=== PATIENT | female | born 1935 | race Caucasian/White ===

== ENCOUNTER 2017-05-17 17:49 | Inpatient (IN) | payer MEDICARE, MEDICAID ==
[~2017-05-17] VITALS: Ht 165.1 cm; Wt 67.1 kg
[2017-05-17 18:01] VITALS: BP 130/60
--- NOTE | 2017-05-17 18:40 | Emergency Room Report ---
History of Present Illness General Chief Complaint: Multiple Trauma/Fall Source: Patient, Medical Record, EMS Present Illness HPI 81-year-old female, [place] speaking, dementia, brought in by EMS for fall. Patient had an unwitnessed fall, nursing staff found her on the floor, unknown if patient hit her head. Unknown LOC. Patient currently awake and alert, confused however following all commands. Not complaining of any pain at this time Allergies: Coded Allergies: No Known Allergies (Unverified , 05/17/17) Patient History Past Medical History: see triage record Past Surgical History: none Pertinent Family History: none Reviewed Nursing Documentation: PMH: Agreed, PSxH: Agreed Nursing Documentation-PMH Hx Cardiac Problems: Yes - chf,a-fib Hx Hypertension: Yes Hx Diabetes: Yes History Of Psychiatric Problem: Yes - depression ,anxiety.bipolar Review of Systems All Other Systems: negative except mentioned in HPI Physical Exam Vital Signs Date Time Temp Pulse Resp B/P (MAP) Pulse Ox O2 Delivery O2 Flow Rate FiO2 05/17/17 17:51 98.0 82 16 130/60 94 Room Air 98.1 Sp02 EP Interpretation: reviewed, normal General Appearance: alert, other - ff commands, nad Head: normocephalic, atraumatic Eyes: bilateral eye normal inspection, bilateral eye PERRL, bilateral eye EOMI ENT: normal ENT inspection, normal pharynx, normal voice, moist mucus membranes Neck: normal inspection, full range of motion, supple Respiratory: normal inspection, lungs clear, normal breath sounds, no respiratory distress, no retraction, no wheezing, speaking full sentences, chest symmetrical Cardiovascular #1: normal inspection, regular rate, rhythm, no edema, normal capillary refill Cardiovascular #2: 2+ radial (R), 2+ radial (L) Gastrointestinal: normal inspection, non tender, soft, non-distended, no guarding Musculoskeletal: normal inspection, back normal, normal range of motion, non- tender Neurologic: alert, other - moving all ext spont Psychiatric: other - confused Skin: normal inspection, normal color, no rash, warm/dry, well hydrated, normal turgor Medical Decision Making Diagnostic Impression: Primary Impression: Fall Additional Impressions: UTI (urinary tract infection) Dementia ER Course 81-year-old female with fall DDX: Fall, unknown if mechanical or not, versus syncope, Vasovagal vs. orthostatic / hypovolemic/dehydration vs. cardiac arrhythmia (SVT, Afib) vs. cardiac (, ACS ) vs. PE vs. metabolic (hypoglycemia, hypoxia), vs neuro (seizure, CVA, intracranial bleed) Plan: bgm, cbc, bmp, ekg, cxr CT head ER course: Pt requiring sedation as patient very agitated, unable to perform blood work, fighting/screaming +UTI - ggiven ceftriaxone Disposition: Patient requires admission to telemetry. D/W hospitalist Dr Serrato Please note that this Emergency Department Report was dictated using netTALKtrack laying supervisor technology software, occasionally this can lead to erroneous entry secondary to interpretation by the dictation equipment EKG Diagnostic Results EP Interpretation: Yes Rate: normal Rhythm: NSR ST Segments:LBBB, TWI and st dep inferior leads ASA given to patient: No Rhythm Strip EP Interpretation: Yes Rate: Rhythm: NSR, no PVCs, no ectopy Chest X-ray CXR: Ordered: Yes 1 view Indication: Fall EP interpretation: Yes Interpretation: No consolidation, no effusion, no PTX, no acute cardiopulmonary disease Impression: No acute disease Electronically signed by Italo Gaitan MD Laboratory Tests Test 05/17/17 19:50 White Blood Count 5.8 K/UL (4.8-10.8) Red Blood Count 4.90 M/UL (4.20-5.40) Hemoglobin 14.3 G/DL (12.0-16.0) Hematocrit 44.1 % (37.0-47.0) Mean Corpuscular Volume 90 FL (80-99) Mean Corpuscular Hemoglobin 29.1 PG (27.0-31.0) Mean Corpuscular Hemoglobin Concent 32.3 G/DL (32.0-36.0) Red Cell Distribution Width 14.5 % (11.6-14.8) Platelet Count 159 K/UL (150-450) Mean Platelet Volume 10.5 FL (6.5-10.1) H Neutrophils (%) (Auto) 58.4 % (45.0-75.0) Lymphocytes (%) (Auto) 26.3 % (20.0-45.0) Monocytes (%) (Auto) 10.3 % (1.0-10.0) H Eosinophils (%) (Auto) 4.1 % (0.0-3.0) H Basophils (%) (Auto) 0.9 % (0.0-2.0) Urine Color Yellow Urine Appearance Slightly cloudy Urine pH 5 (4.5-8.0) Urine Specific [place] 1.020 (1.005-1.035) Urine Protein 2+ (NEGATIVE) H Urine Glucose (UA) Negative (NEGATIVE) Urine Ketones Negative (NEGATIVE) Urine Occult Blood 4+ (NEGATIVE) H Urine Nitrite Positive (NEGATIVE) H Urine Bilirubin Negative (NEGATIVE) Urine Urobilinogen Normal MG/DL (0.0-1.0) Urine Leukocyte Esterase 3+ (NEGATIVE) H Urine RBC Pending Urine WBC Pending Urine Squamous Epithelial Cells Pending Urine Bacteria Pending Sodium Level 143 MMOL/L (136-145) Potassium Level 3.7 MMOL/L (3.5-5.1) Chloride Level 104 MMOL/L (98-107) Carbon Dioxide Level 31 MMOL/L (21-32) Anion Gap 8 mmol/L (5-15) Blood Urea Nitrogen 10 mg/dL (7-18) Creatinine 0.7 MG/DL (0.55-1.30) Estimate Glomerular Filtration Rate mL/min (>60) Glucose Level 103 MG/DL (74-106) Calcium Level 9.6 MG/DL (8.5-10.1) Total Bilirubin 0.6 MG/DL (0.2-1.0) Aspartate Amino Transferase (AST) 34 U/L (15-37) Alanine Aminotransferase (ALT) 30 U/L (12-78) Alkaline Phosphatase 79 U/L (46-116) Troponin I 0.012 ng/mL (0.000-0.056) Pro-B-Type Natriuretic Peptide 590 pg/mL (0-125) H Total Protein 7.8 G/DL (6.4-8.2) Albumin 3.3 G/DL (3.4-5.0) L Globulin 4.5 g/dL Albumin/Globulin Ratio 0.7 (1.0-2.7) L CT/MRI/US Diagnostic Results CT/MRI/US Diagnostic Results : Imaging Test Ordered: CT Head Impression CT HEAD: Moderate age-related generalized brain volume loss and chronic small vessel ischemic changes. 1 cm layer of cystic hygroma over left cerebral. No definite acute subdural hematoma versus significant midline shift. Cavum septum vergae. Right maxillary sinus disease. STAT RAD READ Last Vital Signs Date Time Temp Pulse Resp B/P (MAP) Pulse Ox O2 Delivery O2 Flow Rate FiO2 05/17/17 17:51 98.0 82 16 130/60 94 Room Air 98.1 Disposition: ADMITTED INPATIENT Condition: Serious Referrals: Luiza Roberts MD (PCP) Italo Gaitan M.D. May 17, 2017 18:40
[2017-05-17] MEDS ORDERED: Midazolam 2mg/2ml Inj IM ONE (19:00)
[2017-05-17] MEDS ORDERED: LORazepam Inj 2mg/ml 1ml IV ONE ×2 (19:00→21:00)
[2017-05-17] MEDS ORDERED: DiphenhydrAMINE 50mg/ml Inj IVP ONE (19:00)
[2017-05-17] MEDS ORDERED: GLIMEPIRIDE4 MG ORAL (19:08)
[2017-05-17] MEDS ORDERED: TYLENOL EXTRA500 MG ORAL (19:08)
[2017-05-17] MEDS ORDERED: CARVEDILOL3.125 MG ORAL (19:08)
[2017-05-17] MEDS ORDERED: DIGOXIN125 MCG ORAL (19:08)
[2017-05-17] MEDS ORDERED: DULCOLAX10 MG RC (19:08)
[2017-05-17] MEDS ORDERED: TEMAZEPAM15 MG ORAL (19:08)
[2017-05-17] MEDS ORDERED: POTASSIUM CHLO10 ME2 PO (19:08)
[2017-05-17] MEDS ORDERED: NOVOLOG100 UNIT/3 SUBQ (19:08)
[2017-05-17] MEDS ORDERED: VITAMIN D-32000 UNI1 PO (19:08)
[2017-05-17] MEDS ORDERED: LIPITOR20 MG ORAL (19:08)
[2017-05-17] MEDS ORDERED: MILK OF MA400 MG/51 ORAL (19:08)
[2017-05-17] MEDS ORDERED: ACETAMINOPHEN325 M1 ORAL (19:08)
[2017-05-17] MEDS ORDERED: ABILIFY5 MG ORAL (19:08)
[2017-05-17] MEDS ORDERED: ATIVAN2 MG/1 ML IV (19:08)
[2017-05-17] MEDS ORDERED: FLEET ENEMA133 ML RECTAL (19:08)
[2017-05-17] MEDS ORDERED: DOCUSATE SODIU100 MG ORAL (19:08)
[2017-05-17] MEDS ORDERED: NOVOLOG100 UNITS1 (19:08)
[2017-05-17] MEDS ORDERED: Haloperidol 5mg/ml Inj ONE (19:11)
[2017-05-17] MEDS ORDERED: Haloperidol 5mg/ml Inj IM ONE (19:15)
[2017-05-17 20:12] LABS: APPEARANCE,URINE SLIGHTLY CLOUDY; BASOPHILS % (AUTO) 0.9 % (0.0-2.0); BILIRUBIN, URINE NEGATIVE (NEGATIVE); EOSINOPHILS % (AUTO) 4.1 % (0.0-3.0); GLUCOSE, URINE (UA) NEGATIVE (NEGATIVE); HEMATOCRIT 44.1 % (37.0-47.0); HEMOGLOBIN 14.3 G/DL (12.0-16.0); KETONES,URINE NEGATIVE (NEGATIVE); LEUKOCYTE ESTERASE ,URINE 3+ (NEGATIVE); LYMPHOCYTES % (AUTO) 26.3 % (20.0-45.0); MEAN CORPUSCULAR VOLUME 90 FL (80-99); MONOCYTES % (AUTO) 10.3 % (1.0-10.0); NEUTROPHILS % (AUTO) 58.4 % (45.0-75.0); NITRITE,URINE POSITIVE (NEGATIVE); PH,URINE 5 (4.5-8.0); PLATELET COUNT 159 K/UL (150-450); PROTEIN,URINE 2+ (NEGATIVE); RED CELL DISTRIBUTION WIDTH 14.5 % (11.6-14.8); UROBILINOGEN,URINE NORMAL MG/DL (0.0-1.0); WHITE BLOOD COUNT 5.8 K/UL (4.8-10.8)
[2017-05-17 20:14] LABS: COLOR,URINE YELLOW
[2017-05-17 20:15] LABS: ANION GAP 8 mmol/L (5-15); BLOOD UREA NITROGEN 10 mg/dL (7-18); CALCIUM 9.6 MG/DL (8.5-10.1); CARBON DIOXIDE 31 MMOL/L (21-32); CHLORIDE 104 MMOL/L (98-107); CREATININE 0.7 MG/DL (0.55-1.30); POTASSIUM 3.7 MMOL/L (3.5-5.1); SODIUM 143 MMOL/L (136-145)
[2017-05-17] MEDS ORDERED: cefTRIAXone 2 GM in NS 55 ML IVPB ONE (20:15)
[2017-05-17 20:26] LABS: ALANINE AMINOTRANSFERASE 30 U/L (12-78); ALBUMIN 3.3 G/DL (3.4-5.0); ALBUMIN/GLOBULIN RATIO 0.7 (1.0-2.7); ALKALINE PHOSPHATASE 79 U/L (46-116); ASPARTATE AMINO TRANSFERASE 34 U/L (15-37); BILIRUBIN,TOTAL 0.6 MG/DL (0.2-1.0)
[2017-05-17] MEDS ORDERED: Morphine Sulfate 2mg/ml Inj IVP PRN (21:30)
[2017-05-17] MEDS ORDERED: Miralax 17gm pkt ORAL PRN (21:30)
[2017-05-17] MEDS ORDERED: Albuterol/Ipratropium 3ml neb HHN PRN (21:30)
[2017-05-17 21:35] VITALS: BP 121/92
[2017-05-18] VITALS (7 sets, daily range): BP systolic 127–149; BP diastolic 57–92
[2017-05-18] MEDS ORDERED: VANCOMYCIN IVPB SCH (00:30)
[2017-05-18] MEDS ORDERED: D5W IVPB SCH (00:30)
--- NOTE | 2017-05-18 08:43 | Consultation ---
History of Present Illness General Date patient seen: May 18, 2017 Chief Complaint: Multiple Trauma/Fall Reason for Consultation: inpatient management Present Illness HPI 81-year-old female with hx of dementia, DM, Cardiac disease, arrhythmias brought in by EMS for an episode of fall. Patient had an unwitnessed fall, nursing staff found her on the floor, unknown if patient hit her head. Unknown LOC. Patient was awake in the ER but confused. She was diagnosed to have UTI as well and admitted to telemetry for further work up. Allergies: Coded Allergies: No Known Allergies (Unverified , 05/17/17) Medication History Scheduled Aripiprazole* (Abilify*), 5 MG ORAL BEDTIME, (Reported) Atorvastatin Calcium* (Lipitor*), 20 MG ORAL DAILY, (Reported) Carvedilol* (Carvedilol*), 3.125 MG ORAL EVERY 12 HOURS, (Reported) Cholecalciferol (Vitamin D3) (Vitamin D-3), 2,000 UNIT PO DAILY, (Reported) Digoxin* (Digoxin*), 125 MCG ORAL DAILY, (Reported) Docusate Sodium* (Docusate Sodium*), 100 MG ORAL DAILY, (Reported) Glimepiride* (Glimepiride*), 4 MG ORAL DAILY, (Reported) Potassium Chloride (Potassium Chloride), 10 MEQ PO DAILY, (Reported) Scheduled PRN Acetaminophen* (Acetaminophen 325MG Tablet*), 650 MG ORAL Q4H PRN for FEVER, ( Reported) Acetaminophen* (Acetaminophen 325MG Tablet*), 650 MG ORAL Q4H PRN for MILD PAIN, (Reported) Acetaminophen* (Tylenol Extra Strength*), 500 MG ORAL Q6H PRN for MODERATE PAIN, (Reported) Bisacodyl (Dulcolax), 10 MG RC DAILY PRN for IF MOM INEFFECTIVE, (Reported) Lorazepam* (Ativan*), 1 MG IV Q4H PRN for Agitation, (Reported) Magnesium Hydroxide* (Milk Of Magnesia*), 30 ML ORAL DAILY PRN for IF DOCUSATE INEFFECTIVE, (Reported) Na Phos,M-B/Na Phos,Di-Ba* (Fleet Enema*), 133 ML RECTAL DAILY PRN for IF DULCOLAX INEFFECTIVE, (Reported) Temazepam (Temazepam*), 15 MG ORAL BEDTIME PRN for Insomnia, (Reported) Miscellaneous Medications Insulin Aspart* (Novolog*), 0 SUBQ, (Reported) Patient History Healthcare decision maker Resuscitation status Full Code Advanced Directive on File No Past Medical/Surgical History Past Medical/Surgical History: (1) Diabetes mellitus (2) CAD (coronary artery disease) (3) Arrhythmia Review of Systems All Other Systems: negative except mentioned in HPI Physical Exam General Appearance: WD/WN Lines, tubes and drains: peripheral HEENT: normocephalic, atraumatic Neck: non-tender, normal alignment Respiratory/Chest: chest wall non-tender, lungs clear Breasts: no masses Cardiovascular/Chest: normal peripheral pulses, normal rate Abdomen: normal bowel sounds, non tender Genitourinary/Rectal: normal genital exam, heme negative stool Extremities: normal range of motion, non-tender Skin Exam: normal pigmentation Neurologic: packager hand II-XII grossly normal Last 24 Hour Vital Signs Date Time Temp Pulse Resp B/P (MAP) Pulse Ox O2 Delivery O2 Flow Rate FiO2 05/18/17 04:00 98.1 77 20 149/64 98 Room Air 21 98.1 05/18/17 04:00 72 05/18/17 00:48 98.1 82 16 143/57 98 Room Air 21 98.1 05/18/17 00:41 92 05/18/17 00:27 98.1 90 15 139/92 95 Room Air 98.1 05/18/17 00:03 98.1 90 15 139/92 95 Room Air 98.1 05/17/17 21:35 98.1 102 18 121/92 95 Room Air 98.1 05/17/17 18:01 98.1 84 16 130/60 94 Room Air 98.1 05/17/17 17:51 98.0 82 16 130/60 94 Room Air 98.1 Laboratory Tests Test 05/17/17 19:50 White Blood Count 5.8 K/UL (4.8-10.8) Red Blood Count 4.90 M/UL (4.20-5.40) Hemoglobin 14.3 G/DL (12.0-16.0) Hematocrit 44.1 % (37.0-47.0) Mean Corpuscular Volume 90 FL (80-99) Mean Corpuscular Hemoglobin 29.1 PG (27.0-31.0) Mean Corpuscular Hemoglobin Concent 32.3 G/DL (32.0-36.0) Red Cell Distribution Width 14.5 % (11.6-14.8) Platelet Count 159 K/UL (150-450) Mean Platelet Volume 10.5 FL (6.5-10.1) H Neutrophils (%) (Auto) 58.4 % (45.0-75.0) Lymphocytes (%) (Auto) 26.3 % (20.0-45.0) Monocytes (%) (Auto) 10.3 % (1.0-10.0) H Eosinophils (%) (Auto) 4.1 % (0.0-3.0) H Basophils (%) (Auto) 0.9 % (0.0-2.0) Urine Color Yellow Urine Appearance Slightly cloudy Urine pH 5 (4.5-8.0) Urine Specific [place] 1.020 (1.005-1.035) Urine Protein 2+ (NEGATIVE) H Urine Glucose (UA) Negative (NEGATIVE) Urine Ketones Negative (NEGATIVE) Urine Occult Blood 4+ (NEGATIVE) H Urine Nitrite Positive (NEGATIVE) H Urine Bilirubin Negative (NEGATIVE) Urine Urobilinogen Normal MG/DL (0.0-1.0) Urine Leukocyte Esterase 3+ (NEGATIVE) H Urine RBC 60-80 /HPF (0 - 2) H Urine WBC 15-20 /HPF (0 - 2) H Urine Squamous Epithelial Cells Few /LPF (NONE/OCC) Urine Amorphous Sediment Moderate /LPF (NONE) H Urine Bacteria Many /HPF (NONE) H Sodium Level 143 MMOL/L (136-145) Potassium Level 3.7 MMOL/L (3.5-5.1) Chloride Level 104 MMOL/L (98-107) Carbon Dioxide Level 31 MMOL/L (21-32) Anion Gap 8 mmol/L (5-15) Blood Urea Nitrogen 10 mg/dL (7-18) Creatinine 0.7 MG/DL (0.55-1.30) Estimat Glomerular Filtration Rate mL/min (>60) Glucose Level 103 MG/DL (74-106) Calcium Level 9.6 MG/DL (8.5-10.1) Total Bilirubin 0.6 MG/DL (0.2-1.0) Aspartate Amino Transf (AST/SGOT) 34 U/L (15-37) Alanine Aminotransferase (ALT/SGPT) 30 U/L (12-78) Alkaline Phosphatase 79 U/L (46-116) Troponin I 0.012 ng/mL (0.000-0.056) Pro-B-Type Natriuretic Peptide 590 pg/mL (0-125) H Total Protein 7.8 G/DL (6.4-8.2) Albumin 3.3 G/DL (3.4-5.0) L Globulin 4.5 g/dL Albumin/Globulin Ratio 0.7 (1.0-2.7) L Microbiology Date/Time Source Procedure Growth Status 05/17/17 19:50 Urine,Clean Catch Urine Culture - Preliminary Resulted Height (Feet): 5 Height (Inches): 5.00 Weight (Pounds): 153 Medications Current Medications Medications (Trade) Dose Ordered Sig/Esteban Route PRN Reason Start Time Stop Time Status Last Admin Dose Admin Acetaminophen (Tylenol) 650 mg Q4H PRN ORAL fever 05/17/17 21:30 06/16/17 21:29 Albuterol/ Ipratropium (Albuterol/ Ipratropium) 3 ml EVERY 4 HOURS PRN HHN Shortness of Breath 05/17/17 21:30 05/22/17 21:29 Aripiprazole (Abilify) 5 mg BEDTIME ORAL 05/18/17 21:00 06/17/17 20:59 Carvedilol (Coreg) 3.125 mg EVERY 12 HOURS ORAL 05/18/17 09:00 06/17/17 08:59 Cefepime HCl 2 gm/ Dextrose 110 ml @ 220 mls/hr EVERY 12 HOURS IV 05/18/17 09:00 05/25/17 08:59 Digoxin (Lanoxin) 0.125 mg DAILY ORAL 05/18/17 09:00 06/17/17 08:59 Heparin Sodium (Porcine) (Heparin 5000 units/ml) 5,000 units EVERY 12 HOURS SUBQ 05/18/17 09:00 06/17/17 08:59 Morphine Sulfate (Morphine Sulfate) 2 mg EVERY 4 HOURS PRN IVP Moderate Pain (Pain Scale 4-6) 05/17/17 21:30 05/24/17 21:29 Ondansetron HCl (Zofran) 4 mg Q6H PRN IVP Nausea & Vomiting 05/17/17 21:30 06/16/17 21:29 Phenazopyridine HCl (Pyridium) 100 mg DAILYPRN PRN ORAL dysuria 05/17/17 21:30 06/16/17 21:29 Polyethylene Glycol (Miralax) 17 gm DAILYPRN PRN ORAL Constipation 05/17/17 21:30 06/16/17 21:29 Temazepam (Restoril) 15 mg HSPRN PRN ORAL Insomnia 05/17/17 21:30 05/24/17 21:29 Vancomycin HCl (Vanco rx to dose) 1 ea DAILY PRN MISC . 05/18/17 07:45 06/17/17 07:44 Vancomycin HCl 1.5 gm/Dextrose 275 ml @ 183.3 mls/ hr Q24H IVPB 05/19/17 03:00 05/24/17 02:59 Assessment/Plan Problem List: (1) Fall ICD Codes: W19.XXXA - Unspecified fall, initial encounter SNOMED: 9229710, 543516324 (2) UTI (urinary tract infection) ICD Codes: N39.0 - Urinary tract infection, site not specified SNOMED: 04267399 (3) Diabetes mellitus ICD Codes: E11.9 - Type 2 diabetes mellitus without complications SNOMED: 84178136 (4) Arrhythmia ICD Codes: I49.9 - Cardiac arrhythmia, unspecified SNOMED: 459767754 (5) CAD (coronary artery disease) ICD Codes: I25.10 - Atherosclerotic heart disease of [place] coronary artery without angina pectoris SNOMED: 63736085 (6) Dementia ICD Codes: F03.90 - Unspecified dementia without behavioral disturbance SNOMED: 23450107 Assessment/Plan telemetry monitoring echo, cardiac and neuro evaluation check urine cultures iv abx check electrolytes symptomatic treatment MARTIN MAKI May 18, 2017 08:43
[2017-05-18] MEDS ORDERED: Cefepime HCl 2 GM in D5W 110 ML IV SCH (09:00)
--- NOTE | 2017-05-18 09:35 | Diagnostic Imaging Report ---
Indication: Altered mental status Technique: Contiguous 5 mm thick transaxial imaging of the head obtained in a Siemens Sensation [address] scanner. Soft tissue and bone windows generated. Automatic Exposure Control was utilized. Total Dose length Product (DLP): 1379.[address] Dose Index Volume (CTDIvol): 70.38,70.38 mGy Comparison: none Findings: There is a low density subdural collection over the left cerebral convexity measuring about 1 cm on transaxial images. This is not associated with mass effect or edema. This may represent an old subdural hematoma which is the most likely etiology. Moderate generalized atrophy of the brain demonstrated. Low attenuation of white matter tracts demonstrated. Cavus septum pellucidum is noted. Osseous structures are unremarkable. There is opacification of portions of the paranasal sinuses. An air-fluid level is noted in the right maxillary sinus. 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 No associated mass effect or edema. Generalized atrophy of the brain and evidence of chronic small vessel disease. Cavum septum pellucidum Sinusitis The CT scanner at [facility] is accredited by the [employer] and the scans are performed using dose optimization techniques as appropriate to a performed exam including Automatic Exposure control.
[2017-05-18] MEDS: Digoxin 0.125mg tab ORAL SCH (10:34)
[2017-05-18] MEDS: Heparin 5000 units/ml inj SUBQ SCH ×2 (10:35→21:33)
--- NOTE | 2017-05-18 10:39 | Diagnostic Imaging Report ---
Indication: Chest pain Comparison: None A single view chest radiograph was obtained. Findings: No definite infiltrate or pulmonary vascular congestion identified. The heart is enlarged. The aorta is mildly enlarged consistent with atherosclerotic vascular disease. The bones are osteopenic. Impression: No acute disease
[2017-05-18 11:16] LABS: BASOPHILS % (AUTO) 0.7 % (0.0-2.0); EOSINOPHILS % (AUTO) 5.1 % (0.0-3.0); HEMATOCRIT 39.2 % (37.0-47.0); HEMOGLOBIN 12.4 G/DL (12.0-16.0); LYMPHOCYTES % (AUTO) 23.2 % (20.0-45.0); MEAN CORPUSCULAR VOLUME 91 FL (80-99); MONOCYTES % (AUTO) 11.4 % (1.0-10.0); NEUTROPHILS % (AUTO) 59.7 % (45.0-75.0); PLATELET COUNT 127 K/UL (150-450); RED BLOOD COUNT 4.31 M/UL (4.20-5.40); RED CELL DISTRIBUTION WIDTH 14.5 % (11.6-14.8); WHITE BLOOD COUNT 4.8 K/UL (4.8-10.8)
[2017-05-18 11:39] LABS: ALANINE AMINOTRANSFERASE 23 U/L (12-78); ALBUMIN 2.5 G/DL (3.4-5.0); ALBUMIN/GLOBULIN RATIO 0.7 (1.0-2.7); ALKALINE PHOSPHATASE 60 U/L (46-116); ANION GAP 8 mmol/L (5-15); ASPARTATE AMINO TRANSFERASE 30 U/L (15-37); BILIRUBIN,TOTAL 0.6 MG/DL (0.2-1.0); BLOOD UREA NITROGEN 7 mg/dL (7-18); CALCIUM 8.9 MG/DL (8.5-10.1); CARBON DIOXIDE 27 MMOL/L (21-32); CHLORIDE 107 MMOL/L (98-107); CREATININE 0.6 MG/DL (0.55-1.30); POTASSIUM 3.5 MMOL/L (3.5-5.1); SODIUM 142 MMOL/L (136-145)
--- NOTE | 2017-05-18 16:26 | Cardiology Report ---
APPROVED REPORT EKG Measurement Heart [id number] Normal sinus rhythm Left bundle branch block Abnormal ECG
[2017-05-18] MEDS ORDERED: Haloperidol Decanoate 50mg Inj IM PRN (17:30)
--- NOTE | 2017-05-18 18:30 | Consultation ---
DATE OF CONSULTATION: 05/18/2017 INFECTIOUS DISEASES CONSULTATION CONSULTING PHYSICIAN: Fredi Betts M.D. PRIMARY ATTENDING PHYSICIAN: Luiza Roberts M.D. REASON FOR CONSULTATION: Pyuria and urinary tract infection. HISTORY OF PRESENT ILLNESS: This is an 81-year-old female admitted last night from nursing facility after she was found in the floor, likely had a unwitnessed fall. She is confused and not a source of history. PAST MEDICAL HISTORY: Significant for dementia, depression, diabetes, hypertension. ALLERGIES: No known drug allergy. MEDICATIONS: Cefepime, vancomycin, Abilify, Coreg, digoxin, albuterol ipratropium inhaler, Tylenol, morphine, MiraLAX, Zofran, temazepam, SOCIAL HISTORY: residential resident. . No other history obtainable by the patient. She is confused and tries to get out of the bed. PHYSICAL EXAMINATION: VITAL SIGNS: Temperature 98.1, pulse 81, blood pressure 127/52. GENERAL APPEARANCE: No acute distress. Seems to have normal weight. HEENT: Head and neck pink conjunctiva. HEART: Regular. LUNGS: Clear. ABDOMEN: soft and nontender. EXTREMITIES: No edema. NEUROLOGIC: Awake, alert, confused. LABORATORY AND DIAGNOSTIC DATA: Sodium 143, potassium 3.7, chloride 104, bicarb 31, BUN 10, creatinine 0.7. WBC 4.8, hemoglobin 12.4, hematocrit 39.2, platelets 127. Urine culture is pending. Chest x-ray was negative. CT scan of the head showed right maxillary sinusitis with air fluid level, subdural hematoma versus hygroma in the left side . UA showed RBCs of 60 to 80, WBCs 15 to 20, bacteria many, protein 2+. IMPRESSION: 1. Pyuria may have urinary tract infection. 2. Sinusitis in right maxillary sinus, it is not clear if it is acute or chronic. 3. Status post fall. 4. Diabetes mellitus. 5. Hypertension. 6. Dementia. RECOMMENDATION: 1. Continue with cefepime. 2. We will discontinue IV vancomycin. 3. We will follow up the cultures. At the end of my exam, I thank Dr. Roberts, for involving me in the care of this patient. Fredi Betts M.D. DR: Jacqueline JOB#: [id number] CC: ERICKSON
[2017-05-18] MEDS: Haloperidol 5mg/ml Inj IM PRN (18:35)
--- NOTE | 2017-05-18 20:23 | Cardiology Progress Note ---
Assessment/Plan Assessment/Plan The patient is seen and examined, full consult note will be dictated shortly. Objective Last 24 Hour Vital Signs Date Time Temp Pulse Resp B/P (MAP) Pulse Ox O2 Delivery O2 Flow Rate FiO2 05/18/17 16:00 96 05/18/17 16:00 97.9 91 20 138/75 98 Room Air 21 97.9 05/18/17 12:00 84 05/18/17 12:00 97.6 76 20 136/76 98 Room Air 21 97.6 81 05/18/17 10:34 81 05/18/17 10:33 81 127/52 05/18/17 08:00 97.3 81 20 127/57 98 Room Air 21 97.3 81 05/18/17 08:00 74 05/18/17 04:00 98.1 77 20 149/64 98 Room Air 21 98.1 05/18/17 04:00 72 05/18/17 00:48 98.1 82 16 143/57 98 Room Air 21 98.1 05/18/17 00:41 92 05/18/17 00:27 98.1 90 15 139/92 95 Room Air 98.1 05/18/17 00:03 98.1 90 15 139/92 95 Room Air 98.1 05/17/17 21:35 98.1 102 18 121/92 95 Room Air 98.1 Intake and Output 05/17/17 05/18/17 19:00 07:00 # Voids 5 # Bowel Movements 1 Laboratory Tests Test 05/18/17 11:00 White Blood Count 4.8 K/UL (4.8-10.8) Red Blood Count 4.31 M/UL (4.20-5.40) Hemoglobin 12.4 G/DL (12.0-16.0) Hematocrit 39.2 % (37.0-47.0) Mean Corpuscular Volume 91 FL (80-99) Mean Corpuscular Hemoglobin 28.8 PG (27.0-31.0) Mean Corpuscular Hemoglobin Concent 31.7 G/DL (32.0-36.0) L Red Cell Distribution Width 14.5 % (11.6-14.8) Platelet Count 127 K/UL (150-450) L Mean Platelet Volume 10.9 FL (6.5-10.1) H Neutrophils (%) (Auto) 59.7 % (45.0-75.0) Lymphocytes (%) (Auto) 23.2 % (20.0-45.0) Monocytes (%) (Auto) 11.4 % (1.0-10.0) H Eosinophils (%) (Auto) 5.1 % (0.0-3.0) H Basophils (%) (Auto) 0.7 % (0.0-2.0) Sodium Level 142 MMOL/L (136-145) Potassium Level 3.5 MMOL/L (3.5-5.1) Chloride Level 107 MMOL/L (98-107) Carbon Dioxide Level 27 MMOL/L (21-32) Anion Gap 8 mmol/L (5-15) Blood Urea Nitrogen 7 mg/dL (7-18) Creatinine 0.6 MG/DL (0.55-1.30) Estimat Glomerular Filtration Rate mL/min (>60) Glucose Level 129 MG/DL (74-106) H Calcium Level 8.9 MG/DL (8.5-10.1) Total Bilirubin 0.6 MG/DL (0.2-1.0) Aspartate Amino Transf (AST/SGOT) 30 U/L (15-37) Alanine Aminotransferase (ALT/SGPT) 23 U/L (12-78) Alkaline Phosphatase 60 U/L (46-116) Total Protein 6.3 G/DL (6.4-8.2) L Albumin 2.5 G/DL (3.4-5.0) L Globulin 3.8 g/dL Albumin/Globulin Ratio 0.7 (1.0-2.7) L Microbiology Date/Time Source Procedure Growth Status 05/17/17 19:50 Urine,Clean Catch Urine Culture - Preliminary Resulted JH FONSECA May 18, 2017 20:23
--- NOTE | 2017-05-18 20:31 | History & Physical ---
History and Physical History & Physicial JOb ID [id number] Cesar Salvador May 18, 2017 20:31
[2017-05-18] MEDS: Carvedilol 6.25mg Tab ORAL SCH (21:32)
--- NOTE | 2017-05-18 22:15 | History and Physical Report ---
DATE OF ADMISSION: 05/17/2017 HISTORY OF PRESENT ILLNESS: The patient comes in with status post fall at the facility. The patient is a poor historian, cannot get any reliable history from the patient. The patient also admitted for possible urinary tract infection. Again, cannot get any history whatsoever, is a very poor historian at this point. PAST MEDICAL HISTORY: Significant for dementia, psychosis, hypertension, arrhythmia, NIDDM, anxiety, and insomnia. The patient does have mid abdominal surgical scar, but cannot tell me what the surgery was for. The patient is a very poor historian. ALLERGIES: No known allergies. MEDICATIONS: Abilify, Tylenol, Lipitor, Dulcolax, Coreg, digoxin, Colace, NovoLog, Ativan, and temazepam. FAMILY HISTORY: Unable to obtain. SOCIAL HISTORY: Unable to obtain. REVIEW OF SYSTEMS: Unable to obtain. PHYSICAL EXAMINATION: VITAL SIGNS: Temperature is 98.1 degrees, pulse is 90, and blood pressure is 139/92. HEENT: PERRLA. CHEST: Clear to auscultation. CARDIOVASCULAR: Regular rate and rhythm. ABDOMEN: Soft. Positive bowel sounds. Mid abdominal scar. EXTREMITIES: No edema. Does have contractures. NEUROLOGIC: Oriented x1 to name only. Does not follow neurological exam. LABORATORY AND DIAGNOSTIC DATA: WBC of 5.8, hemoglobin of 14.3, and platelets of 159. Urine showed signs of UTI. Sodium 142, potassium 3.7, BUN of 10, creatinine 0.7, and glucose of 103. ASSESSMENT AND PLAN: Altered mental status, status post fall. No apparent injury at this point, poor historian. I have asked Dr. Jo, Dr. John Mascorro, and Dr. Thompson to see the patient for possible syncope and for the diagnosis on admission and treatment of the above-mentioned diagnoses and treatment. Luiza Roberts M.D. DR: LUCIUS JOB#: [id number] CC:
--- NOTE | 2017-05-18 23:00 | Consultation ---
History of Present Illness General Date patient seen: May 18, 2017 Chief Complaint: Multiple Trauma/Fall Reason for Consultation: inpatient management Present Illness HPI 81-year-old female admitted last night from nursing facility after she was found in the floor, the pt has hx of dementia and depression the pt was confused and pulled her iv out due to agitation. the pt was unable to participate in eval Allergies: Coded Allergies: No Known Allergies (Unverified , 05/17/17) Medication History Scheduled Aripiprazole* (Abilify*), 5 MG ORAL BEDTIME, (Reported) Atorvastatin Calcium* (Lipitor*), 20 MG ORAL DAILY, (Reported) Carvedilol* (Carvedilol*), 3.125 MG ORAL EVERY 12 HOURS, (Reported) Cholecalciferol (Vitamin D3) (Vitamin D-3), 2,000 UNIT PO DAILY, (Reported) Digoxin* (Digoxin*), 125 MCG ORAL DAILY, (Reported) Docusate Sodium* (Docusate Sodium*), 100 MG ORAL DAILY, (Reported) Glimepiride* (Glimepiride*), 4 MG ORAL DAILY, (Reported) Potassium Chloride (Potassium Chloride), 10 MEQ PO DAILY, (Reported) Scheduled PRN Acetaminophen* (Acetaminophen 325MG Tablet*), 650 MG ORAL Q4H PRN for FEVER, ( Reported) Acetaminophen* (Acetaminophen 325MG Tablet*), 650 MG ORAL Q4H PRN for MILD PAIN, (Reported) Acetaminophen* (Tylenol Extra Strength*), 500 MG ORAL Q6H PRN for MODERATE PAIN, (Reported) Bisacodyl (Dulcolax), 10 MG RC DAILY PRN for IF MOM INEFFECTIVE, (Reported) Lorazepam* (Ativan*), 1 MG IV Q4H PRN for Agitation, (Reported) Magnesium Hydroxide* (Milk Of Magnesia*), 30 ML ORAL DAILY PRN for IF DOCUSATE INEFFECTIVE, (Reported) Na Phos,M-B/Na Phos,Di-Ba* (Fleet Enema*), 133 ML RECTAL DAILY PRN for IF DULCOLAX INEFFECTIVE, (Reported) Temazepam (Temazepam*), 15 MG ORAL BEDTIME PRN for Insomnia, (Reported) Miscellaneous Medications Insulin Aspart* (Novolog*), 0 SUBQ, (Reported) Patient History Limited by: medical condition History Provided By: Patient, Medical Record, PMD Healthcare decision maker Resuscitation status Full Code Advanced Directive on File No Past Medical/Surgical History Past Medical/Surgical History: (1) Diabetes mellitus (2) Arrhythmia (3) CAD (coronary artery disease) (4) Dementia (5) UTI (urinary tract infection) (6) Fall Review of Systems Psychiatric: Reports: anxiety, depressed feelings, emotional problems Physical Exam General Appearance: no apparent distress, alert, confused, agitated Last 24 Hour Vital Signs Date Time Temp Pulse Resp B/P (MAP) Pulse Ox O2 Delivery O2 Flow Rate FiO2 05/18/17 21:32 95 134/59 05/18/17 16:00 96 05/18/17 16:00 97.9 91 20 138/75 98 Room Air 21 97.9 05/18/17 12:00 84 05/18/17 12:00 97.6 76 20 136/76 98 Room Air 21 97.6 81 05/18/17 10:34 81 05/18/17 10:33 81 127/52 05/18/17 08:00 97.3 81 20 127/57 98 Room Air 21 97.3 81 05/18/17 08:00 74 05/18/17 04:00 98.1 77 20 149/64 98 Room Air 21 98.1 05/18/17 04:00 72 05/18/17 00:48 98.1 82 16 143/57 98 Room Air 21 98.1 05/18/17 00:41 92 05/18/17 00:27 98.1 90 15 139/92 95 Room Air 98.1 05/18/17 00:03 98.1 90 15 139/92 95 Room Air 98.1 Intake and Output 05/17/17 05/18/17 19:00 07:00 # Voids 5 # Bowel Movements 1 Laboratory Tests Test 05/18/17 11:00 White Blood Count 4.8 K/UL (4.8-10.8) Red Blood Count 4.31 M/UL (4.20-5.40) Hemoglobin 12.4 G/DL (12.0-16.0) Hematocrit 39.2 % (37.0-47.0) Mean Corpuscular Volume 91 FL (80-99) Mean Corpuscular Hemoglobin 28.8 PG (27.0-31.0) Mean Corpuscular Hemoglobin Concent 31.7 G/DL (32.0-36.0) L Red Cell Distribution Width 14.5 % (11.6-14.8) Platelet Count 127 K/UL (150-450) L Mean Platelet Volume 10.9 FL (6.5-10.1) H Neutrophils (%) (Auto) 59.7 % (45.0-75.0) Lymphocytes (%) (Auto) 23.2 % (20.0-45.0) Monocytes (%) (Auto) 11.4 % (1.0-10.0) H Eosinophils (%) (Auto) 5.1 % (0.0-3.0) H Basophils (%) (Auto) 0.7 % (0.0-2.0) Sodium Level 142 MMOL/L (136-145) Potassium Level 3.5 MMOL/L (3.5-5.1) Chloride Level 107 MMOL/L (98-107) Carbon Dioxide Level 27 MMOL/L (21-32) Anion Gap 8 mmol/L (5-15) Blood Urea Nitrogen 7 mg/dL (7-18) Creatinine 0.6 MG/DL (0.55-1.30) Estimat Glomerular Filtration Rate mL/min (>60) Glucose Level 129 MG/DL (74-106) H Calcium Level 8.9 MG/DL (8.5-10.1) Total Bilirubin 0.6 MG/DL (0.2-1.0) Aspartate Amino Transf (AST/SGOT) 30 U/L (15-37) Alanine Aminotransferase (ALT/SGPT) 23 U/L (12-78) Alkaline Phosphatase 60 U/L (46-116) Total Protein 6.3 G/DL (6.4-8.2) L Albumin 2.5 G/DL (3.4-5.0) L Globulin 3.8 g/dL Albumin/Globulin Ratio 0.7 (1.0-2.7) L Height (Feet): 5 Height (Inches): 5.00 Weight (Pounds): 150 Medications Current Medications Medications (Trade) Dose Ordered Sig/Esteban Route PRN Reason Start Time Stop Time Status Last Admin Dose Admin Acetaminophen (Tylenol) 650 mg Q4H PRN ORAL fever 05/17/17 21:30 06/16/17 21:29 Albuterol/ Ipratropium (Albuterol/ Ipratropium) 3 ml EVERY 4 HOURS PRN HHN Shortness of Breath 05/17/17 21:30 05/22/17 21:29 Aripiprazole (Abilify) 5 mg BEDTIME ORAL 05/18/17 21:00 06/17/17 20:59 05/18/17 21:32 Carvedilol (Coreg) 6.25 mg EVERY 12 HOURS ORAL 05/18/17 21:00 06/17/17 20:59 05/18/17 21:32 Cefepime HCl 1 gm/ Sodium Chloride 55 ml @ 110 mls/hr Q24H IVPB 05/19/17 09:00 05/26/17 08:59 Digoxin (Lanoxin) 0.125 mg DAILY ORAL 05/18/17 09:00 06/17/17 08:59 05/18/17 10:34 Haloperidol Lactate (Haldol) 5 mg Q6H PRN IM Agitation 05/18/17 17:45 06/17/17 17:44 05/18/17 18:35 Heparin Sodium (Porcine) (Heparin 5000 units/ml) 5,000 units EVERY 12 HOURS SUBQ 05/18/17 09:00 06/17/17 08:59 05/18/17 21:33 Morphine Sulfate (Morphine Sulfate) 2 mg EVERY 4 HOURS PRN IVP Moderate Pain (Pain Scale 4-6) 05/17/17 21:30 05/24/17 21:29 Ondansetron HCl (Zofran) 4 mg Q6H PRN IVP Nausea & Vomiting 05/17/17 21:30 06/16/17 21:29 Phenazopyridine HCl (Pyridium) 100 mg DAILYPRN PRN ORAL dysuria 05/17/17 21:30 06/16/17 21:29 Polyethylene Glycol (Miralax) 17 gm DAILYPRN PRN ORAL Constipation 05/17/17 21:30 06/16/17 21:29 Risperidone (RisperDAL) 1 mg BEDTIME ORAL 05/18/17 21:00 06/17/17 20:59 05/18/17 21:31 Temazepam (Restoril) 15 mg HSPRN PRN ORAL Insomnia 05/17/17 21:30 05/24/17 21:29 05/18/17 21:33 Assessment/Plan Status: stable Assessment/Plan encephalopathy dementia with behavioral dist riperdal 1mg qhs risperdal .5 Shana Shrestha M.D. May 18, 2017 23:00
--- NOTE | 2017-05-18 23:00 | Consultation ---
DATE OF CONSULTATION: 05/18/2017 PHYSICAL MEDICINE AND REHABILITATION CONSULTATION CONSULTING PHYSICIAN: John Mascorro M.D. REQUESTING PHYSICIAN: Luiza Roberts M.D. GROUND INTELLIGENCE OFFICER: Isaura Tena M.D. SHELLS INSPECTOR: Tavo Thompson M.D. CHIEF COMPLAINT: Difficulty with functionality and communication status post fall. HISTORY OF PRESENT ILLNESS: The patient is an 81-year-old Welsh female who apparently is a resident of nursing home facility with history of psychiatric disorder and dementia, had an unwitnessed fall with unknown loss of consciousness was brought to the emergency room at [facility]. The patient was admitted to the hospital. CT scan of the head revealed chronic small left cerebral subdural hematoma versus CSF hygroma with no associated mass effect or edema, also generalized atrophy reported. Her chest x-ray reported with no acute disease. The patient had elevated proBNP level and also urine was positive for nitrites and bacteruria, RBCs 60 to 80 and white count of 15 to 20. Urine culture so far so result. The patient was admitted to telemetry, was seen by platen press operator and waiting for Cardiology evaluation. I was asked today to evaluate the patient for rehabilitation. The patient is at bed, confused, disoriented, and apparently Welsh speaker, unable to give any information and all the information was taken from reviewing of the chart or discussed with staff. The patient's prior level of function is not clear but apparently has been a resident of nursing home facility. PAST MEDICAL AND SURGICAL HISTORY: 1. History of diabetes mellitus. 2. Hypertension. 3. Hyperlipidemia. 4. Atrial fibrillation. 5. Congestive heart failure. 6. Dementia. 7. Anxiety. 8. Depression. 9. Bipolar disorder. ALLERGIES: Not known drug allergy. MEDICATIONS: Cefepime IV everyday, Abilify 5 mg at bedtime, Coreg 3.125 mg every 12 hours, digoxin 0.125 mg daily, heparin subcutaneous 5000 units b.i.d., albuterol inhaler every four hours p.r.n., Tylenol p.r.n., morphine p.r.n., MiraLAX, Zofran, Restoril, . FAMILY AND SOCIAL HISTORY: Minimal information is available. The patient is apparently resident of nursing home facility with history of multiple psychiatric disorders with depression, bipolar, anxiety disorder. Prior level of function is not clear, currently requires maximum entry level administrative assistant for bed mobility. History of tobacco and alcohol is not clear. Family history is not available. REVIEW OF SYSTEMS: Not obtainable. PHYSICAL EXAMINATION: VITAL SIGNS: Blood pressure 120/52, respiratory rate 20 per minute, heart rate 80 per minute, temperature 97.3 degrees Fahrenheit, and O2 saturation 98%. Height is 165 cm, weight 69 kg, and body mass index 25.5. GENERAL: The patient is at bed, does not look like being in any acute distress, confused. HEENT: No facial droop noted. Unable to evaluate visual field or extraocular movements. NECK: Supple with no lymphadenopathy. HEART: Regular rhythm and rate. LUNGS: Clear to auscultation bilaterally. ABDOMEN: Soft, nontender, and nondistended. Normal bowel sounds. EXTREMITIES: No pretibial edema. No calf tenderness. No clubbing or cyanosis. NEUROLOGIC: The patient is awake. Only follows minimal commands occasionally. Minimally moves bilateral upper and lower limbs occasionally. Unable to follow commands to check manual muscle strength. Sensation is not assessable. LABORATORY DATA: WBC is 4.8, hemoglobin 12.4, platelets 127. Sodium 142, potassium 3.5, BUN 7, creatinine 0.6, glucose 129. AST and ALT 30 and 23. Albumin 2.5. ASSESSMENT: The patient is an 81-year-old female with: 1. Multifactorial encephalopathy. 2. 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 3. Dementia. 4. Aphasia. 5. Possible dysphagia. 6. Debility and functional decline. 7. Gait abnormality. 8. Bipolar disorder and anxiety disorder. 9. Depression. 10. Paroxysmal atrial fibrillation. 11. Hyperlipidemia. 12. Hypertension. 13. Diabetes mellitus. 14. Elevated proBNP level. 15. Possible urinary tract infection.. 16. Status post unwitnessed fall at nursing home facility. RECOMMENDATIONS: This patient will benefit from evaluation and training by physical therapy, occupational therapy, speech therapy, and being provided with 24-hours nursing care. Physical therapy for range of motion, transfer training, endurance, balance, and ambulation training with appropriate assistive device. Occupational therapy for activities of daily living, equipment, function and transfer evaluation and training, upper extremity range of motion and strengthening exercise. Speech therapy for evaluation of retraining on status of her cognition, memory, speech, language, and swallow evaluation and retraining and aspiration precaution. Nursing for evaluation of her bowel and bladder, medication regimen, skin care prevention of pressure ulcer, patient and polysomnography tech education. Neurology and Cardiology consultation and management and being evaluated by neurosurgeon is recommended. I defer this to primary care physician to arrange that. Strict fall precaution, pressure ulcer precaution, aspiration precaution, and cardiac precaution. Continue medical management per medicine. Thank you for your consultation. John Mascorro M.D. DR: Ronn JOB#: [id number] CC:
[2017-05-19] VITALS: BP 169/70
--- NOTE | 2017-05-19 02:15 | Consultation ---
DATE OF CONSULTATION: 05/18/2017 CARDIOLOGY CONSULTATION CONSULTING PHYSICIAN: Tavo Thompson M.D. REFERRING PHYSICIAN: Luiza Roberts M.D. REASON FOR CONSULTATION: Management of syncope. HISTORY OF PRESENT ILLNESS: The patient is a very unfortunate 81-year-old [place] female with underlying history of dementia, who was brought in by EMS after an episode of an unwitnessed fall and possible associated syncopal event. According to the nursing staff, the patient was found on the floor. It is not clear how long she has been on the floor or if the patient had any associated trauma. It is not also clear whether the patient had loss of consciousness prior to that event. At the time of arrival to the emergency department, blood pressure was 130/60 mmHg and heart rate of 82. A 12-lead electrocardiogram was significant for sinus rhythm, heart rate of [address]-segment in II, III, and aVF suggestive of ischemia in the inferior wall as well as the presence of nonspecific intraventricular conduction delay. The patient was admitted to telemetry for further evaluation and management. Review of the record shows prior history of hypertension, diabetes mellitus, and paroxysmal atrial fibrillation as well as congestive heart failure. PAST MEDICAL HISTORY: As mentioned above including hypertension, diabetes mellitus, depression, anxiety, bipolar disorder, dementia, paroxysmal atrial fibrillation, and history of congestive heart failure. PAST SURGICAL HISTORY: None. MEDICATIONS: List of medications including acetaminophen 650 mg q.4 h. p.r.n. pain and fever, Abilify 5 mg p.o. nightly, Lipitor 20 mg p.o. daily, Dulcolax 10 mg rectal daily p.r.n. constipation, carvedilol 3.125 mg q.12 h., vitamin D3 2000 units p.o. daily, digoxin 125 mcg p.o. daily, Colace 100 mg p.o. daily, glimepiride 4 mg p.o. daily, insulin aspart, lorazepam 1 mg IV q.4 h. p.r.n. agitation, magnesium hydroxide 30 mL p.o. p.r.n. constipation, Fleet Enema 133 mL rectal daily p.r.n. constipation, potassium chloride 10 mEq p.o. daily as well as temazepam 15 mg p.o. nightly. ALLERGIES: No known drug allergies. FAMILY HISTORY: No premature coronary artery disease in first-degree relatives. REVIEW OF SYSTEMS: A 12-system review could not be done as the patient is demented. PHYSICAL EXAMINATION: GENERAL: The patient is a very unfortunate 81-year-old female, awake and speaking her own Luxembourgish language, not communicating or verbalizing Maltese language. She does not appear to be in respiratory distress. VITAL SIGNS: Blood pressure was 130/60, pulse of 82, respirations 16, temperature 98.0 degrees Fahrenheit, O2 saturation 94% on room air. HEENT: Atraumatic and normocephalic. Anicteric. Pupils are equal, round, and reactive to light and accommodation. Extraocular muscles intact. NECK: JVP less than 5 cm. No carotid bruit. Carotid upstrokes 2+ bilaterally. CARDIOVASCULAR: Normal S1 and S2. There is 2/6 grade midsystolic murmur at the left sternal border. PMI is at fourth intercostal space at the midclavicular line. LUNGS: Clear to auscultation bilaterally. ABDOMEN: Soft, nontender, and nondistended. No hepatosplenomegaly. Positive bowel sounds. EXTREMITIES: No evidence of edema, clubbing, or cyanosis. LABORATORY AND DIAGNOSTIC DATA: WBC 5.8, hemoglobin 14.3, hematocrit 44.1, and platelet count 159,000. Sodium 142, potassium 3.7, chloride 104, bicarbonate 31, BUN of 10, creatinine 0.7, glucose 103, calcium 9.6. Troponin I is 0.012. ProBNP was 590. A 12-lead electrocardiogram shows sinus rhythm, rate of [address]-segment depression in II, III, and aVF suggestive of inferior wall ischemia as well as nonspecific ST-segment changes in the lateral leads, intraventricular conduction delay, nonspecific. Chest x-ray showed no acute cardiopulmonary disease. ASSESSMENT AND PLAN: The patient is a very unfortunate 81-year-old female, seen in Cardiology consultation for management of syncope. 1. Possible syncopal event leading to unwitnessed fall. We would like to obtain orthostatics to assess hemodynamics and fluid status, carotid artery duplex study, 2D echocardiography for assessment of LV systolic function. Her cardiac rhythm will be monitored throughout her stay. 2. Diabetes mellitus. The patient will benefit from combination of aspirin and statins. 3. History of hypertension. I would prefer beta-polo for control of hypertension in this patient. I agree with carvedilol. We will adjust the dose for target of blood pressure 130/80 and below. 4. History of congestive heart failure. Currently, the patient does not appear to be in heart failure clinically. We however would like to obtain 2D echocardiography to delineate this entity. I would like to thank, Dr. Roberts, for the courtesy of this consultation. Tavo Thompson M.D. DR: JANETT JOB#: [id number] CC:
[2017-05-19] MEDS ORDERED: Vancomycin 1.5 GM in D5W 275 ML IVPB SCH (03:00)
[2017-05-19 04:00] VITALS: BP 136/82
--- NOTE | 2017-05-19 05:30 | History and Physical Report ---
DATE OF ADMISSION: 05/17/2017 HISTORY OF PRESENT ILLNESS: The patient is a pleasant 81-year-old female with past medical history significant for dementia, diabetes mellitus, cardiac disease, arrhythmia, at this time presents with fall, brought to EMS, unwitnessed fall in the long term the patient hit her head, had no loss of consciousness. She has been seen by including line infection, has been started on antibiotics. Hematology Service has been consulted in addition. This is a History and Physical for this patient. PAST MEDICAL HISTORY: As noted above, diabetes mellitus, cardiac disease, and arrhythmia. MEDICATIONS: Omeprazole, Lipitor, Coreg, , digoxin, glimepiride, and potassium chloride. PAST SURGICAL HISTORY: None known. ALLERGIES: No known drug allergies. FAMILY HISTORY: Noncontributory. REVIEW OF SYSTEMS: CONSTITUTIONAL: No fevers, chills, or night sweats. SKIN: No rashes, bumps, or itching. HEENT: No headache, hearing or vision changes. BREASTS: No lumps, pain, or discharge. PULMONARY: No cough, sputum, or shortness of breath. GASTROINTESTINAL: No nausea, vomiting, or diarrhea. GENITOURINARY: No dysuria, frequency, or urgency. MUSCULOSKELETAL: No joint swelling, muscle pain, or trauma. PHYSICAL EXAMINATION: VITAL SIGNS: Reviewed. GENERAL: No acute distress. PULMONARY: Decreased breath sounds. CARDIOVASCULAR: Regular rate. No S3 or S4. ABDOMEN: Soft, nontender, and nondistended. EXTREMITIES: No cyanosis, swelling, or edema. LABORATORY DATA: WBC , hemoglobin 12.4, and platelet count 127,000. ASSESSMENT AND RECOMMENDATIONS: 1. Urinary tract infection, antibiotics as per ID Service. Urine culture is pending. 2. Fall, unwitnessed. CAT scan reviewed of the brain, currently negative. Symptomatic treatment as needed. 3. Arrhythmia, seen by Cardiology Service. Close monitoring. The patient is on telemetry. Echo pending. Cardiac evaluation. 4. Loss of consciousness, altered mental status. Neurology Service on board. 5. Coronary artery disease. Monitor as needed by Cardiology. 6. Dementia. Closely monitor. I appreciate the consultation. Cesar Janna Salvador DR: NAYA JOB#: [id number] CC:
[2017-05-19 08:00] VITALS: BP 137/80
[2017-05-19 08:38] LABS: BASOPHILS % (AUTO) 0.7 % (0.0-2.0); EOSINOPHILS % (AUTO) 5.9 % (0.0-3.0); HEMATOCRIT 37.7 % (37.0-47.0); HEMOGLOBIN 12.5 G/DL (12.0-16.0); LYMPHOCYTES % (AUTO) 34.3 % (20.0-45.0); MEAN CORPUSCULAR VOLUME 90 FL (80-99); MONOCYTES % (AUTO) 13.9 % (1.0-10.0); NEUTROPHILS % (AUTO) 45.2 % (45.0-75.0); PLATELET COUNT 133 K/UL (150-450); RED CELL DISTRIBUTION WIDTH 14.5 % (11.6-14.8); WHITE BLOOD COUNT 4.4 K/UL (4.8-10.8)
[2017-05-19 08:55] LABS: ALANINE AMINOTRANSFERASE 22 U/L (12-78); ALBUMIN 2.5 G/DL (3.4-5.0); ALBUMIN/GLOBULIN RATIO 0.6 (1.0-2.7); ALKALINE PHOSPHATASE 61 U/L (46-116); ANION GAP 7 mmol/L (5-15); ASPARTATE AMINO TRANSFERASE 27 U/L (15-37); BILIRUBIN,TOTAL 0.6 MG/DL (0.2-1.0); BLOOD UREA NITROGEN 7 mg/dL (7-18); CALCIUM 8.8 MG/DL (8.5-10.1); CARBON DIOXIDE 28 MMOL/L (21-32); CHLORIDE 107 MMOL/L (98-107); CREATININE 0.7 MG/DL (0.55-1.30); PHOSPHORUS 3.5 MG/DL (2.5-4.9); POTASSIUM 3.2 MMOL/L (3.5-5.1); SODIUM 142 MMOL/L (136-145)
[2017-05-19] MEDS: Heparin 5000 units/ml inj SUBQ SCH ×2 (09:00→20:03)
[2017-05-19] MEDS ORDERED: Cefepime HCl 1 GM in NS 55 ML IVPB SCH (09:00)
--- NOTE | 2017-05-19 09:20 | Pulmonology Progress Note ---
Assessment/Plan Problems: (1) Fall (2) UTI (urinary tract infection) (3) Diabetes mellitus (4) Arrhythmia (5) CAD (coronary artery disease) (6) Dementia Assessment/Plan improving all labs and notes reviewed continue abx check cultures pt/ot med/surg Subjective ROS Limited/Unobtainable: No Interval Events: comfortable Allergies: Coded Allergies: No Known Allergies (Unverified , 05/17/17) Objective Last 24 Hour Vital Signs Date Time Temp Pulse Resp B/P (MAP) Pulse Ox O2 Delivery O2 Flow Rate FiO2 05/19/17 04:00 97.9 94 22 136/82 96 Room Air 97.9 05/19/17 04:00 71 05/19/17 00:00 96 05/19/17 00:00 98.2 96 20 169/70 92 Room Air 98.2 05/18/17 22:00 90 16 Room Air 21 05/18/17 21:32 95 134/59 05/18/17 20:00 98.1 95 22 134/59 96 Room Air 98.1 05/18/17 20:00 106 05/18/17 16:00 96 05/18/17 16:00 97.9 91 20 138/75 98 Room Air 21 97.9 05/18/17 12:00 84 05/18/17 12:00 97.6 76 20 136/76 98 Room Air 21 97.6 81 05/18/17 10:34 81 05/18/17 10:33 81 127/52 Intake and Output 05/18/17 05/19/17 19:00 07:00 Intake Total 348 ml Balance 348 ml Intake Oral 348 ml # Voids 3 4 # Bowel Movements 1 1 Objective General Appearance: WD/WN Lines, tubes and drains: peripheral HEENT: normocephalic, atraumatic Neck: non-tender, normal alignment Respiratory/Chest: chest wall non-tender, lungs clear Breasts: no masses Cardiovascular/Chest: normal peripheral pulses, normal rate Abdomen: normal bowel sounds, non tender Genitourinary/Rectal: normal genital exam, heme negative stool Extremities: normal range of motion, non-tender Skin Exam: normal pigmentation Microbiology Date/Time Source Procedure Growth Status 05/17/17 19:50 Urine,Clean Catch Urine Culture - Preliminary Staphylococcus Aureus Resulted Laboratory Tests 05/18/17 11:00: White Blood Count 4.8, Red Blood Count 4.31, Hemoglobin 12.4, Hematocrit 39.2, Mean Corpuscular Volume 91, Mean Corpuscular Hemoglobin 28.8, Mean Corpuscular Hemoglobin Concent 31.7L, Red Cell Distribution Width 14.5, Platelet Count 127L , Mean Platelet Volume 10.9H, Neutrophils (%) (Auto) 59.7, Lymphocytes (%) (Auto ) 23.2, Monocytes (%) (Auto) 11.4H, Eosinophils (%) (Auto) 5.1H, Basophils (%) ( Auto) 0.7, Sodium Level 142, Potassium Level 3.5, Chloride Level 107, Carbon Dioxide Level 27, Anion Gap 8, Blood Urea Nitrogen 7, Creatinine 0.6, Estimat Glomerular Filtration Rate , Glucose Level 129H, Calcium Level 8.9, Total Bilirubin 0.6, Aspartate Amino Transf (AST/SGOT) 30, Alanine Aminotransferase ( ALT/SGPT) 23, Alkaline Phosphatase 60, Total Protein 6.3L, Albumin 2.5L, Globulin 3.8, Albumin/Globulin Ratio 0.7L 05/19/17 06:43: White Blood Count 4.4L, Red Blood Count 4.20, Hemoglobin 12.5, Hematocrit 37.7, Mean Corpuscular Volume 90, Mean Corpuscular Hemoglobin 29.8, Mean Corpuscular Hemoglobin Concent 33.1, Red Cell Distribution Width 14.5, Platelet Count 133L, Mean Platelet Volume 11.4H, Neutrophils (%) (Auto) 45.2, Lymphocytes (%) (Auto) 34.3, Monocytes (%) (Auto) 13.9H, Eosinophils (%) (Auto) 5.9H, Basophils (%) ( Auto) 0.7, Sodium Level 142, Potassium Level 3.2L, Chloride Level 107, Carbon Dioxide Level 28, Anion Gap 7, Blood Urea Nitrogen 7, Creatinine 0.7, Estimat Glomerular Filtration Rate , Glucose Level 102, Calcium Level 8.8, Total Bilirubin 0.6, Aspartate Amino Transf (AST/SGOT) 27, Alanine Aminotransferase ( ALT/SGPT) 22, Alkaline Phosphatase 61, Total Protein 6.4, Albumin 2.5L, Globulin 3.9, Albumin/Globulin Ratio 0.6L, Phosphorus Level 3.5, Magnesium Level 1.8 Current Medications Medications (Trade) Dose Ordered Sig/Esteban Route PRN Reason Start Time Stop Time Status Last Admin Dose Admin Acetaminophen (Tylenol) 650 mg Q4H PRN ORAL fever 05/17/17 21:30 06/16/17 21:29 Albuterol/ Ipratropium (Albuterol/ Ipratropium) 3 ml EVERY 4 HOURS PRN HHN Shortness of Breath 05/17/17 21:30 05/22/17 21:29 Carvedilol (Coreg) 6.25 mg EVERY 12 HOURS ORAL 05/18/17 21:00 06/17/17 20:59 05/18/17 21:32 Cefepime HCl 1 gm/ Sodium Chloride 55 ml @ 110 mls/hr Q24H IVPB 05/19/17 09:00 05/26/17 08:59 Digoxin (Lanoxin) 0.125 mg DAILY ORAL 05/18/17 09:00 06/17/17 08:59 05/18/17 10:34 Haloperidol Lactate (Haldol) 5 mg Q6H PRN IM Agitation 05/18/17 17:45 06/17/17 17:44 05/18/17 18:35 Heparin Sodium (Porcine) (Heparin 5000 units/ml) 5,000 units EVERY 12 HOURS SUBQ 05/18/17 09:00 06/17/17 08:59 05/18/17 21:33 Morphine Sulfate (Morphine Sulfate) 2 mg EVERY 4 HOURS PRN IVP Moderate Pain (Pain Scale 4-6) 05/17/17 21:30 05/24/17 21:29 Ondansetron HCl (Zofran) 4 mg Q6H PRN IVP Nausea & Vomiting 05/17/17 21:30 06/16/17 21:29 Phenazopyridine HCl (Pyridium) 100 mg DAILYPRN PRN ORAL dysuria 05/17/17 21:30 06/16/17 21:29 Polyethylene Glycol (Miralax) 17 gm DAILYPRN PRN ORAL Constipation 05/17/17 21:30 06/16/17 21:29 Risperidone (RisperDAL) 0.5 mg DAILY ORAL 05/19/17 09:00 06/18/17 08:59 Risperidone (RisperDAL) 1 mg BEDTIME ORAL 05/18/17 21:00 06/17/17 20:59 05/18/17 21:31 Temazepam (Restoril) 15 mg HSPRN PRN ORAL Insomnia 05/17/17 21:30 05/24/17 21:29 05/18/17 21:33 MARTIN MAKI May 19, 2017 09:20
[2017-05-19] MEDS: Digoxin 0.125mg tab ORAL SCH (09:35)
[2017-05-19] MEDS: Carvedilol 6.25mg Tab ORAL SCH ×2 (09:36→20:02)
[2017-05-19 11:35] VITALS: BP 138/80
[2017-05-19] MEDS: Haloperidol 5mg/ml Inj IM PRN (11:40)
--- NOTE | 2017-05-19 12:45 | General Progress Note ---
Assessment/Plan Status: stable, progressing Assessment/Plan dementia with behavioral disturbance encephalopathy -cont risperdal -increase the dose -haldol IM Subjective Date patient seen: May 19, 2017 Neurologic/Psychiatric: Reports: anxiety, depressed, emotional problems Allergies: Coded Allergies: No Known Allergies (Unverified , 05/17/17) Subjective pulled out iv again agitated Objective Last 24 Hour Vital Signs Date Time Temp Pulse Resp B/P (MAP) Pulse Ox O2 Delivery O2 Flow Rate FiO2 05/19/17 11:35 98.4 94 19 138/80 98 98.4 05/19/17 09:36 92 137/80 05/19/17 09:35 92 05/19/17 08:00 98.3 92 20 137/80 99 98.3 05/19/17 08:00 90 05/19/17 04:00 97.9 94 22 136/82 96 Room Air 97.9 05/19/17 04:00 71 05/19/17 00:00 96 05/19/17 00:00 98.2 96 20 169/70 92 Room Air 98.2 05/18/17 22:00 90 16 Room Air 21 05/18/17 21:32 95 134/59 05/18/17 20:00 98.1 95 22 134/59 96 Room Air 98.1 05/18/17 20:00 106 05/18/17 16:00 96 05/18/17 16:00 97.9 91 20 138/75 98 Room Air 21 97.9 Intake and Output 05/18/17 05/19/17 19:00 07:00 Intake Total 348 ml Balance 348 ml Intake Oral 348 ml # Voids 3 4 # Bowel Movements 1 1 Laboratory Tests 05/19/17 06:43: White Blood Count 4.4L, Red Blood Count 4.20, Hemoglobin 12.5, Hematocrit 37.7, Mean Corpuscular Volume 90, Mean Corpuscular Hemoglobin 29.8, Mean Corpuscular Hemoglobin Concent 33.1, Red Cell Distribution Width 14.5, Platelet Count 133L, Mean Platelet Volume 11.4H, Neutrophils (%) (Auto) 45.2, Lymphocytes (%) (Auto) 34.3, Monocytes (%) (Auto) 13.9H, Eosinophils (%) (Auto) 5.9H, Basophils (%) ( Auto) 0.7, Sodium Level 142, Potassium Level 3.2L, Chloride Level 107, Carbon Dioxide Level 28, Anion Gap 7, Blood Urea Nitrogen 7, Creatinine 0.7, Estimat Glomerular Filtration Rate , Glucose Level 102, Calcium Level 8.8, Phosphorus Level 3.5, Magnesium Level 1.8, Total Bilirubin 0.6, Aspartate Amino Transf (AST /SGOT) 27, Alanine Aminotransferase (ALT/SGPT) 22, Alkaline Phosphatase 61, Total Protein 6.4, Albumin 2.5L, Globulin 3.9, Albumin/Globulin Ratio 0.6L Height (Feet): 5 Height (Inches): 5.00 Weight (Pounds): 149 General Appearance: no apparent distress, alert, confused, agitated Shana Correa M.D. May 19, 2017 12:45
[2017-05-19 15:32] VITALS: BP 127/81
--- NOTE | 2017-05-19 15:44 | Infectious Diseases Prog Note ---
Assessment/Plan Assessment/Plan A; Bacteriuria/ UTI s/p fall Dementia DM HPN P: continue Cefepime will f/u UC Subjective ROS Limited/Unobtainable: Yes Neurologic: Reports: confusion, other - has sitter Allergies: Coded Allergies: No Known Allergies (Unverified , 05/17/17) Objective Vital Signs Last 24 Hour Vital Signs Date Time Temp Pulse Resp B/P (MAP) Pulse Ox O2 Delivery O2 Flow Rate FiO2 05/19/17 15:32 98.5 91 20 127/81 99 98.5 05/19/17 11:35 98.4 94 19 138/80 98 98.4 05/19/17 09:36 92 137/80 05/19/17 09:35 92 05/19/17 08:00 98.3 92 20 137/80 99 98.3 05/19/17 08:00 90 05/19/17 07:05 91 16 Room Air 21 05/19/17 04:00 97.9 94 22 136/82 96 Room Air 97.9 05/19/17 04:00 71 05/19/17 00:00 96 05/19/17 00:00 98.2 96 20 169/70 92 Room Air 98.2 05/18/17 22:00 90 16 Room Air 21 05/18/17 21:32 95 134/59 05/18/17 20:00 98.1 95 22 134/59 96 Room Air 98.1 05/18/17 20:00 106 05/18/17 16:00 96 05/18/17 16:00 97.9 91 20 138/75 98 Room Air 21 97.9 Height (Feet): 5 Height (Inches): 5.00 Weight (Pounds): 149 General Appearance: no acute distress HEENT: mucous membranes moist Respiratory/Chest: lungs clear Cardiovascular: normal rate Abdomen: soft, non tender Extremities: no edema Neurologic/Psychiatric: other - sleeping Microbiology Date/Time Source Procedure Growth Status 05/17/17 19:50 Urine,Clean Catch Urine Culture - Preliminary Staphylococcus Aureus Resulted Laboratory Tests Test 05/19/17 06:43 White Blood Count 4.4 K/UL (4.8-10.8) L Red Blood Count 4.20 M/UL (4.20-5.40) Hemoglobin 12.5 G/DL (12.0-16.0) Hematocrit 37.7 % (37.0-47.0) Mean Corpuscular Volume 90 FL (80-99) Mean Corpuscular Hemoglobin 29.8 PG (27.0-31.0) Mean Corpuscular Hemoglobin Concent 33.1 G/DL (32.0-36.0) Red Cell Distribution Width 14.5 % (11.6-14.8) Platelet Count 133 K/UL (150-450) L Mean Platelet Volume 11.4 FL (6.5-10.1) H Neutrophils (%) (Auto) 45.2 % (45.0-75.0) Lymphocytes (%) (Auto) 34.3 % (20.0-45.0) Monocytes (%) (Auto) 13.9 % (1.0-10.0) H Eosinophils (%) (Auto) 5.9 % (0.0-3.0) H Basophils (%) (Auto) 0.7 % (0.0-2.0) Sodium Level 142 MMOL/L (136-145) Potassium Level 3.2 MMOL/L (3.5-5.1) L Chloride Level 107 MMOL/L (98-107) Carbon Dioxide Level 28 MMOL/L (21-32) Anion Gap 7 mmol/L (5-15) Blood Urea Nitrogen 7 mg/dL (7-18) Creatinine 0.7 MG/DL (0.55-1.30) Estimat Glomerular Filtration Rate mL/min (>60) Glucose Level 102 MG/DL (74-106) Calcium Level 8.8 MG/DL (8.5-10.1) Phosphorus Level 3.5 MG/DL (2.5-4.9) Magnesium Level 1.8 MG/DL (1.8-2.4) Total Bilirubin 0.6 MG/DL (0.2-1.0) Aspartate Amino Transf (AST/SGOT) 27 U/L (15-37) Alanine Aminotransferase (ALT/SGPT) 22 U/L (12-78) Alkaline Phosphatase 61 U/L (46-116) Total Protein 6.4 G/DL (6.4-8.2) Albumin 2.5 G/DL (3.4-5.0) L Globulin 3.9 g/dL Albumin/Globulin Ratio 0.6 (1.0-2.7) L Current Medications Medications (Trade) Dose Ordered Sig/Esteban Route PRN Reason Start Time Stop Time Status Last Admin Dose Admin Acetaminophen (Tylenol) 650 mg Q4H PRN ORAL fever 05/17/17 21:30 06/16/17 21:29 Albuterol/ Ipratropium (Albuterol/ Ipratropium) 3 ml EVERY 4 HOURS PRN HHN Shortness of Breath 05/17/17 21:30 05/22/17 21:29 Carvedilol (Coreg) 6.25 mg EVERY 12 HOURS ORAL 05/18/17 21:00 06/17/17 20:59 05/19/17 09:36 Cefepime HCl 1 gm/ Sodium Chloride 55 ml @ 110 mls/hr Q24H IVPB 05/19/17 09:00 05/26/17 08:59 05/19/17 09:30 Digoxin (Lanoxin) 0.125 mg DAILY ORAL 05/18/17 09:00 06/17/17 08:59 05/19/17 09:35 Haloperidol Lactate (Haldol) 5 mg Q6H PRN IM Agitation 05/18/17 17:45 06/17/17 17:44 05/19/17 11:40 Heparin Sodium (Porcine) (Heparin 5000 units/ml) 5,000 units EVERY 12 HOURS SUBQ 05/18/17 09:00 06/17/17 08:59 05/18/17 21:33 Morphine Sulfate (Morphine Sulfate) 2 mg EVERY 4 HOURS PRN IVP Moderate Pain (Pain Scale 4-6) 05/17/17 21:30 05/24/17 21:29 Ondansetron HCl (Zofran) 4 mg Q6H PRN IVP Nausea & Vomiting 05/17/17 21:30 06/16/17 21:29 Phenazopyridine HCl (Pyridium) 100 mg DAILYPRN PRN ORAL dysuria 05/17/17 21:30 06/16/17 21:29 Polyethylene Glycol (Miralax) 17 gm DAILYPRN PRN ORAL Constipation 05/17/17 21:30 06/16/17 21:29 Risperidone (RisperDAL) 1 mg BEDTIME ORAL 05/18/17 21:00 06/17/17 20:59 05/18/17 21:31 Risperidone (RisperDAL) 1 mg DAILY ORAL 05/20/17 09:00 06/19/17 08:59 Temazepam (Restoril) 15 mg HSPRN PRN ORAL Insomnia 05/17/17 21:30 05/24/17 21:29 05/18/17 21:33 NANI BAPTISTE May 19, 2017 15:44
--- NOTE | 2017-05-19 16:24 | Wound Care Consultation ---
Wound Assessment Wound Assessment #1: Wound Present on Admission: Yes New Wound: No Status Change of Wound: No Wound Location Body Site Modif: left Wound Location Body Site: other - hip Wound Type: other - scratches Francis Test: Does not Francis Wound Thickness: Partial Thickness Percent of Wound Black/Brown: 100 - scabs appearing Wound Drainage Amount: None Wound Drainage Odor: None/Absent Tissue Surrounding Wound: Intact Wound General Appearance: Reddened - scabs appearing, Open to air Wound Assessment #2: Wound Number: 2 Wound Present on Admission: Yes New Wound: No Status Change of Wound: No Wound Location Body Site Modif: left Wound Location Body Site: toe - 3rd Wound Type: scab Francis Test: Does not Francis Wound Thickness: Full Thickness Wound Length: 1.0 Wound Width: 1.0 Wound Depth: utd Percent of Wound Black/Brown: 100 - thick brown scab Wound Drainage Amount: None Wound Drainage Odor: None/Absent Tissue Surrounding Wound: Intact Wound General Appearance: Blackened - thick scab Wound Assessment #3: Wound Number: 3 Wound Present on Admission: Yes New Wound: No Status Change of Wound: No Wound Location Body Site Modif: left, dorsal Wound Location Body Site: foot Wound Type: scab Francis Test: Does not Francis Wound Thickness: Partial Thickness Wound Length: 1.0 Wound Width: 1.0 Wound Depth: utd Percent of Wound Black/Brown: 100 Wound Drainage Amount: None Wound Drainage Odor: None/Absent Tissue Surrounding Wound: Intact Wound General Appearance: Blackened - scabs Wound Assessment #4: Wound Number: 4 Wound Present on Admission: Yes New Wound: No Status Change of Wound: No Wound Location Body Site Modif: left Wound Location Body Site: metatarsal head - 1st Wound Type: scab Francis Test: Does not Francis Wound Thickness: Partial Thickness Wound Length: 1.0 Wound Width: 1.0 Wound Depth: utd Percent of Wound Black/Brown: 100 Wound Drainage Amount: None Wound Drainage Odor: None/Absent Tissue Surrounding Wound: Intact Wound General Appearance: Blackened - scab Wound Comment #1 left knee scar tissue -intact #2 left hip scratches -dry #3 left 3rd toe scab #4 left dorsal aspect of foot scab #5 left 1st metatarsal scab. Recommendation -Local wound care as ordered -Turn and reposition -Keep clean and dry. -Optimize nutrition -Keep scabs clean and dry, assess for any changes. -Assess and follow up with MD for any change of condition to skin present JADA BELCHER May 19, 2017 16:24
[2017-05-19] MEDS ORDERED: Miralax 17gm pkt ORAL PRN (16:44)
[2017-05-19] MEDS ORDERED: Morphine Sulfate 2mg/ml Inj IVP PRN (16:44)
[2017-05-19] MEDS ORDERED: Haloperidol 5mg/ml Inj IM PRN (16:44)
[2017-05-19] MEDS ORDERED: Albuterol/Ipratropium 3ml neb HHN PRN (17:00)
--- NOTE | 2017-05-19 18:06 | Cardiology Progress Note ---
Assessment/Plan Assessment/Plan 1. Possible syncopal event leading to unwitnessed fall, carotid US was normal, not feasible to obtain orthostatics, follow up the results of 2D echocardiography. 2. Diabetes mellitus. The patient will benefit from combination of aspirin and statins. 3. History of hypertension. Will increase carvedilol if HTN is persistent. 4. History of congestive heart failure. Currently, the patient does not appear to be in heart failure clinically. Awaiting the results of 2D echo. Objective Last 24 Hour Vital Signs Date Time Temp Pulse Resp B/P (MAP) Pulse Ox O2 Delivery O2 Flow Rate FiO2 05/19/17 15:32 98.5 91 20 127/81 99 98.5 05/19/17 11:35 98.4 94 19 138/80 98 98.4 05/19/17 09:36 92 137/80 05/19/17 09:35 92 05/19/17 08:00 98.3 92 20 137/80 99 98.3 05/19/17 08:00 90 05/19/17 07:05 91 16 Room Air 21 05/19/17 04:00 97.9 94 22 136/82 96 Room Air 97.9 05/19/17 04:00 71 05/19/17 00:00 96 05/19/17 00:00 98.2 96 20 169/70 92 Room Air 98.2 05/18/17 22:00 90 16 Room Air 21 05/18/17 21:32 95 134/59 05/18/17 20:00 98.1 95 22 134/59 96 Room Air 98.1 05/18/17 20:00 106 Intake and Output 05/18/17 05/19/17 19:00 07:00 Intake Total 348 ml Balance 348 ml Intake Oral 348 ml # Voids 3 4 # Bowel Movements 1 1 Laboratory Tests Test 05/19/17 06:43 White Blood Count 4.4 K/UL (4.8-10.8) L Red Blood Count 4.20 M/UL (4.20-5.40) Hemoglobin 12.5 G/DL (12.0-16.0) Hematocrit 37.7 % (37.0-47.0) Mean Corpuscular Volume 90 FL (80-99) Mean Corpuscular Hemoglobin 29.8 PG (27.0-31.0) Mean Corpuscular Hemoglobin Concent 33.1 G/DL (32.0-36.0) Red Cell Distribution Width 14.5 % (11.6-14.8) Platelet Count 133 K/UL (150-450) L Mean Platelet Volume 11.4 FL (6.5-10.1) H Neutrophils (%) (Auto) 45.2 % (45.0-75.0) Lymphocytes (%) (Auto) 34.3 % (20.0-45.0) Monocytes (%) (Auto) 13.9 % (1.0-10.0) H Eosinophils (%) (Auto) 5.9 % (0.0-3.0) H Basophils (%) (Auto) 0.7 % (0.0-2.0) Sodium Level 142 MMOL/L (136-145) Potassium Level 3.2 MMOL/L (3.5-5.1) L Chloride Level 107 MMOL/L (98-107) Carbon Dioxide Level 28 MMOL/L (21-32) Anion Gap 7 mmol/L (5-15) Blood Urea Nitrogen 7 mg/dL (7-18) Creatinine 0.7 MG/DL (0.55-1.30) Estimat Glomerular Filtration Rate mL/min (>60) Glucose Level 102 MG/DL (74-106) Calcium Level 8.8 MG/DL (8.5-10.1) Phosphorus Level 3.5 MG/DL (2.5-4.9) Magnesium Level 1.8 MG/DL (1.8-2.4) Total Bilirubin 0.6 MG/DL (0.2-1.0) Aspartate Amino Transf (AST/SGOT) 27 U/L (15-37) Alanine Aminotransferase (ALT/SGPT) 22 U/L (12-78) Alkaline Phosphatase 61 U/L (46-116) Total Protein 6.4 G/DL (6.4-8.2) Albumin 2.5 G/DL (3.4-5.0) L Globulin 3.9 g/dL Albumin/Globulin Ratio 0.6 (1.0-2.7) L Microbiology Date/Time Source Procedure Growth Status 05/17/17 19:50 Urine,Clean Catch Urine Culture - Preliminary Staphylococcus Aureus Resulted Objective HEENT: Atraumatic and normocephalic. Anicteric. Pupils are equal, round, and reactive to light and accommodation. Extraocular muscles intact. NECK: JVP less than 5 cm. No carotid bruit. Carotid upstrokes 2+ bilaterally. CARDIOVASCULAR: Normal S1 and S2. There is 2/6 grade midsystolic murmur at the left sternal border. PMI is at fourth intercostal space at the midclavicular line. LUNGS: Clear to auscultation bilaterally. ABDOMEN: Soft, nontender, and nondistended. No hepatosplenomegaly. Positive bowel sounds. EXTREMITIES: No evidence of edema, clubbing, or cyanosis. JH FONSECA May 19, 2017 18:06
--- NOTE | 2017-05-19 19:25 | General Progress Note ---
Progress Note Progress Note REHAB FOLLOW UP PROGRESS NOTE: SUBJECTIVE: AT BED, 1:1 SITTER PRESENT. EPISODES OF AGITATION. POOR PO INTAKE. PER PT >> Rolling * Contact Guard Assistance Supine to Sit * Contact Guard Assistance Bed Mobility Assistive Devices * Bed Rail Sit to Stand * Minimal Assistance Bed to Chair/Wheelchair * Minimal Assistance Gait Assistance * Minimal Assistance Assistive Device * None Distance * 5FT PREFERRED TO NOT WALK FURTHER REVIEW OF SYSTEMS: Not obtainable. PHYSICAL EXAMINATION: VITAL SIGNS: PER CHART NOTED. HEENT: No facial droop noted. NECK: Supple HEART: Regular rhythm and rate. LUNGS: Clear to auscultation bilaterally. ABDOMEN: Soft, nontender, and nondistended. Normal bowel sounds. EXTREMITIES: No pretibial edema. No calf tenderness. No clubbing or cyanosis. NEUROLOGIC: The patient is awake. Follows minimal commands LABORATORY DATA: PER CHART NOTED. ASSESSMENT: The patient is an 81-year-old female with: 1. Multifactorial encephalopathy. 2. 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 3. Dementia. 4. Aphasia. 5. Possible dysphagia. 6. Debility and functional decline. 7. Gait abnormality. 8. Bipolar disorder and anxiety disorder. 9. Depression. 10. Paroxysmal atrial fibrillation. 11. Hyperlipidemia. 12. Hypertension. 13. Diabetes mellitus. 14. Elevated proBNP level. 15. Possible urinary tract infection.. 16. Status post [facility]. UTI >>>>>>> URINE CULTURE Preliminary Organism 1 STAPHYLOCOCCUS AUREUS COLONY COUNT: >100,000 CFU/ML PER PSYCH >> dementia with behavioral disturbance RECOMMENDATIONS: 24-hours nursing care. Physical therapy for range of motion, transfer training, endurance, balance, and ambulation training with appropriate assistive device. Occupational therapy for activities of daily living, equipment, function and transfer training, upper extremity range of motion and strengthening exercise. Speech therapy for retraining on status of her cognition, memory, speech, language, and swallow retraining and aspiration precaution. Nursing for her bowel and bladder, medication regimen, skin care prevention of pressure ulcer, patient and fuel cell designer education. PSYCH F/U Strict fall precaution, pressure ulcer precaution, aspiration precaution, and cardiac precaution. Continue medical management per medicine. ABX PER ID. 1:1 SITTER FOR PATIENT'S SAFETY. RAOUL LERMA M.D. May 19, 2017 19:25
[2017-05-19 19:47] VITALS: BP 146/60
--- NOTE | 2017-05-20 02:04 | General Progress Note ---
Assessment/Plan Assessment/Plan 1. Urinary tract infection, antibiotics as per ID Service. --> Urine culture is pending. 2. Fall, unwitnessed. --> CAT scan reviewed of the brain, currently negative. --> Symptomatic treatment as needed. 3. Arrhythmia, seen by Cardiology Service. --> Close monitoring. The patient is on telemetry. --> Echo pending. Cardiac evaluation. 4. Loss of consciousness, altered mental status. --> Neurology Service on board. 5. Coronary artery disease. --> Monitor as needed by Cardiology. 6. Dementia. Closely monitor. Subjective Date patient seen: May 19, 2017 Allergies: Coded Allergies: No Known Allergies (Unverified , 05/17/17) Subjective No respiratory distress. No active bleeding. Objective Last 24 Hour Vital Signs Date Time Temp Pulse Resp B/P (MAP) Pulse Ox O2 Delivery O2 Flow Rate FiO2 05/19/17 21:31 96 18 Room Air 21 05/19/17 20:02 96 146/60 05/19/17 19:47 97.7 96 18 146/60 98 Room Air 97.7 05/19/17 15:32 98.5 91 20 127/81 99 98.5 05/19/17 11:35 98.4 94 19 138/80 98 98.4 05/19/17 09:36 92 137/80 05/19/17 09:35 92 05/19/17 08:00 98.3 92 20 137/80 99 98.3 05/19/17 08:00 90 05/19/17 07:05 91 16 Room Air 21 05/19/17 04:00 97.9 94 22 136/82 96 Room Air 97.9 05/19/17 04:00 71 Intake and Output 05/19/17 05/20/17 19:00 07:00 Intake Total 472 ml Balance 472 ml Intake Oral 472 ml # Voids 1 # Bowel Movements 1 Laboratory Tests 05/19/17 06:43: White Blood Count 4.4L, Red Blood Count 4.20, Hemoglobin 12.5, Hematocrit 37.7, Mean Corpuscular Volume 90, Mean Corpuscular Hemoglobin 29.8, Mean Corpuscular Hemoglobin Concent 33.1, Red Cell Distribution Width 14.5, Platelet Count 133L, Mean Platelet Volume 11.4H, Neutrophils (%) (Auto) 45.2, Lymphocytes (%) (Auto) 34.3, Monocytes (%) (Auto) 13.9H, Eosinophils (%) (Auto) 5.9H, Basophils (%) ( Auto) 0.7, Sodium Level 142, Potassium Level 3.2L, Chloride Level 107, Carbon Dioxide Level 28, Anion Gap 7, Blood Urea Nitrogen 7, Creatinine 0.7, Estimat Glomerular Filtration Rate , Glucose Level 102, Calcium Level 8.8, Phosphorus Level 3.5, Magnesium Level 1.8, Total Bilirubin 0.6, Aspartate Amino Transf (AST /SGOT) 27, Alanine Aminotransferase (ALT/SGPT) 22, Alkaline Phosphatase 61, Total Protein 6.4, Albumin 2.5L, Globulin 3.9, Albumin/Globulin Ratio 0.6L Height (Feet): 5 Height (Inches): 5.00 Weight (Pounds): 148 General Appearance: no apparent distress Respiratory/Chest: decreased breath sounds Abdomen: non tender, soft Edema: trace edema Skin: warm/dry Cesar Salvador May 20, 2017 02:04
[2017-05-20 04:00] VITALS: BP 149/67
[2017-05-20 08:00] VITALS: BP 145/68
[2017-05-20] MEDS: Carvedilol 6.25mg Tab ORAL SCH ×2 (08:48→21:04)
[2017-05-20] MEDS: Digoxin 0.125mg tab ORAL SCH (08:48)
[2017-05-20] MEDS: Heparin 5000 units/ml inj SUBQ SCH ×2 (08:55→21:12)
[2017-05-20] MEDS ORDERED: Cefepime HCl 1 GM in NS 55 ML IVPB SCH (09:00)
--- NOTE | 2017-05-20 10:26 | Infectious Diseases Prog Note ---
Assessment/Plan Assessment/Plan antibiotics : cefepime A 1. staph aureus UTI 2. DM 3. HTN 4. dementia P 1. d/c cefepime 2. start iv vancomycin 3. will follow up cultures Subjective ROS Limited/Unobtainable: Yes Allergies: Coded Allergies: No Known Allergies (Unverified , 05/17/17) Objective Vital Signs Last 24 Hour Vital Signs Date Time Temp Pulse Resp B/P (MAP) Pulse Ox O2 Delivery O2 Flow Rate FiO2 05/20/17 08:48 86 05/20/17 08:48 86 145/68 05/20/17 08:00 97.4 86 19 145/68 98 97.4 05/20/17 07:58 78 16 Room Air 21 05/20/17 04:00 97.9 93 20 149/67 97 Room Air 97.9 05/19/17 21:31 96 18 Room Air 21 05/19/17 20:02 96 146/60 05/19/17 19:47 97.7 96 18 146/60 98 Room Air 97.7 05/19/17 15:32 98.5 91 20 127/81 99 98.5 05/19/17 11:35 98.4 94 19 138/80 98 98.4 Height (Feet): 5 Height (Inches): 5.00 Weight (Pounds): 148 Respiratory/Chest: lungs clear Cardiovascular: normal rate, regular rhythm, no gallop/murmur Abdomen: soft, non tender Extremities: no edema Microbiology Date/Time Source Procedure Growth Status 05/17/17 19:50 Urine,Clean Catch Urine Culture - Preliminary Staphylococcus Aureus Resulted 05/17/17 16:38 Rectum VRE Culture - Final Enterococcus Faecalis - Vre Complete MUMTAZ GARCIA May 20, 2017 10:26
[2017-05-20 12:00] VITALS: BP 137/64
[2017-05-20] MEDS: Vancomycin 1500mg IVPB SCH (14:41)
[2017-05-20 16:00] VITALS: BP 140/70
--- NOTE | 2017-05-20 16:50 | General Progress Note ---
Assessment/Plan Status: stable Assessment/Plan dementia with behavioral disturbance encephalopathy -cont risperdal -increase the dose -haldol IM Subjective Neurologic/Psychiatric: Reports: anxiety, depressed, emotional problems Allergies: Coded Allergies: No Known Allergies (Unverified , 05/17/17) Subjective the pt is calmer more manageable Objective Last 24 Hour Vital Signs Date Time Temp Pulse Resp B/P (MAP) Pulse Ox O2 Delivery O2 Flow Rate FiO2 05/20/17 16:00 98.2 95 19 140/70 96 98.2 05/20/17 12:00 97.9 96 19 137/64 97 97.9 05/20/17 08:48 86 05/20/17 08:48 86 145/68 05/20/17 08:00 97.4 86 19 145/68 98 97.4 05/20/17 07:58 78 16 Room Air 21 05/20/17 04:00 97.9 93 20 149/67 97 Room Air 97.9 05/19/17 21:31 96 18 Room Air 21 05/19/17 20:02 96 146/60 05/19/17 19:47 97.7 96 18 146/60 98 Room Air 97.7 Intake and Output 05/19/17 05/20/17 19:00 07:00 Intake Total 472 ml 150 ml Balance 472 ml 150 ml Intake Oral 472 ml 150 ml # Voids 1 2 # Bowel Movements 1 Height (Feet): 5 Height (Inches): 5.00 Weight (Pounds): 150 General Appearance: no apparent distress, alert, confused Shana Correa M.D. May 20, 2017 16:50
--- NOTE | 2017-05-20 18:33 | General Progress Note ---
Progress Note Progress Note REHAB FOLLOW UP PROGRESS NOTE: SUBJECTIVE: AT BED, FEEDING ASSIST TOLERATING SOFT DIET. LESS >> AGITATION. PER OT >> Rolling * Contact Guard Assistance Supine to Sit * Contact Guard Assistance Sit to Stand * Contact Guard Assistance Bed to Chair/Wheelchair * Minimal Assistance Therapeutic Activity Comment * Pt performed functional mob with hand held assist requiring constant cueing for safety. Patient complains of pain * No Upper Body Dressing * Max Assistance Lower Body Dressing * Min Assistance REVIEW OF SYSTEMS: Not obtainable. PHYSICAL EXAMINATION: VITAL SIGNS: PER CHART NOTED. HEENT: No facial droop noted. NECK: Supple HEART: Regular rhythm and rate. LUNGS: Clear to auscultation bilaterally. ABDOMEN: Soft, nontender, and nondistended. Normal bowel sounds. EXTREMITIES: No pretibial edema. No calf tenderness. No clubbing or cyanosis. NEUROLOGIC: The patient is awake. Follows minimal commands LABORATORY DATA: PER CHART NOTED. URINE CULTURE Preliminary Organism 1 STAPHYLOCOCCUS AUREUS COLONY COUNT: >100,000 CFU/ML STA AUREUS M.I.C. RX --------- --- CIPROFLOXACIN >=8 R CLINDAMYCIN <=0.25 S ERYTHROMYCIN <=0.25 S GENTAMICIN >=16 R LEVOFLOXACIN >=8 R NITROFURANTOIN <=16 S BENZYLPENICILLIN >=0.5 R TETRACYCLINE >=16 R TRIMETHOPRIM/SULFA <=10 S VANCOMYCIN <=0.5 S RIFAMPIN <=0.5 S + MRSA NARES. ASSESSMENT: The patient is an 81-year-old female with: 1. Multifactorial encephalopathy. 2. 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 3. Dementia. 4. Aphasia. 5. Possible dysphagia. 6. Debility and functional decline. 7. Gait abnormality. 8. Bipolar disorder and anxiety disorder. 9. Depression. 10. Paroxysmal atrial fibrillation. 11. Hyperlipidemia. 12. Hypertension. 13. Diabetes mellitus. 14. Elevated proBNP level. 15. Possible urinary tract infection.. 16. Status post unwitnessed fall at longterm facility. DYSPHAGIA UTI + MRSA NARES PER PSYCH >> dementia with behavioral disturbance RECOMMENDATIONS: 24-hours nursing care. Physical therapy for range of motion, transfer training, endurance, balance, and ambulation training with appropriate assistive device. Occupational therapy for activities of daily living, equipment, function and transfer training, upper extremity range of motion and strengthening exercise. Speech therapy for retraining on status of her cognition, memory, speech, language, and swallow retraining and aspiration precaution. Nursing for her bowel and bladder, medication regimen, skin care prevention of pressure ulcer, patient and podiatric foot and ankle specialist education. PSYCH F/U Strict fall precaution, pressure ulcer precaution, aspiration precaution, and cardiac precaution. Continue medical management per medicine. ABX PER ID. FEEDING ASSIST ASPIRATION PRECAUTION BACTROBAN NARES BID X 5 DAYS MRSA CONTACT ISOLATION VIDEO SWALLOW STUDY RAOUL LERMA M.D. May 20, 2017 18:33
--- NOTE | 2017-05-20 18:46 | Pulmonology Progress Note ---
Assessment/Plan Problems: (1) Fall (2) UTI (urinary tract infection) (3) Diabetes mellitus (4) Arrhythmia (5) CAD (coronary artery disease) (6) Dementia Assessment/Plan videow swallow pending improving all labs and notes reviewed continue abx check cultures pt/ot in progess med/surg dc planning soon Subjective ROS Limited/Unobtainable: Yes Allergies: Coded Allergies: No Known Allergies (Unverified , 05/17/17) Objective Last 24 Hour Vital Signs Date Time Temp Pulse Resp B/P (MAP) Pulse Ox O2 Delivery O2 Flow Rate FiO2 05/20/17 16:00 98.2 95 19 140/70 96 98.2 05/20/17 12:00 97.9 96 19 137/64 97 97.9 05/20/17 08:48 86 05/20/17 08:48 86 145/68 05/20/17 08:00 97.4 86 19 145/68 98 97.4 05/20/17 07:58 78 16 Room Air 21 05/20/17 04:00 97.9 93 20 149/67 97 Room Air 97.9 05/19/17 21:31 96 18 Room Air 21 05/19/17 20:02 96 146/60 05/19/17 19:47 97.7 96 18 146/60 98 Room Air 97.7 Intake and Output 05/19/17 05/20/17 19:00 07:00 Intake Total 472 ml 150 ml Balance 472 ml 150 ml Intake Oral 472 ml 150 ml # Voids 1 2 # Bowel Movements 1 Objective General Appearance: WD/WN Lines, tubes and drains: peripheral HEENT: normocephalic, atraumatic Neck: non-tender, normal alignment Respiratory/Chest: chest wall non-tender, lungs clear Breasts: no masses Cardiovascular/Chest: normal peripheral pulses, normal rate Abdomen: normal bowel sounds, non tender Genitourinary/Rectal: normal genital exam, heme negative stool Extremities: normal range of motion, non-tender Skin Exam: normal pigmentation Microbiology Date/Time Source Procedure Growth Status 05/17/17 19:50 Urine,Clean Catch Urine Culture - Preliminary Staphylococcus Aureus Resulted Current Medications Medications (Trade) Dose Ordered Sig/Esteban Route PRN Reason Start Time Stop Time Status Last Admin Dose Admin Acetaminophen (Tylenol) 650 mg Q4H PRN ORAL fever 05/19/17 16:43 4/4/18 16:42 Albuterol/ Ipratropium (Albuterol/ Ipratropium) 3 ml EVERY 4 HOURS PRN HHN Shortness of Breath 05/19/17 17:00 05/22/17 21:29 Carvedilol (Coreg) 12.5 mg EVERY 12 HOURS ORAL 05/20/17 21:00 06/19/17 20:59 Digoxin (Lanoxin) 0.125 mg DAILY ORAL 05/20/17 09:00 06/17/17 08:59 05/20/17 08:48 Haloperidol Lactate (Haldol) 5 mg Q6H PRN IM Agitation 05/19/17 16:44 06/17/17 16:43 Heparin Sodium (Porcine) (Heparin 5000 units/ml) 5,000 units EVERY 12 HOURS SUBQ 05/19/17 21:00 06/17/17 08:59 05/20/17 08:55 Morphine Sulfate (Morphine Sulfate) 2 mg EVERY 4 HOURS PRN IVP Moderate Pain (Pain Scale 4-6) 05/19/17 16:44 05/24/17 16:43 05/20/17 17:49 Mupirocin (Bactroban Oint) 1 applic BID TOPIC 05/20/17 18:30 05/25/17 18:29 UNV Ondansetron HCl (Zofran) 4 mg Q6H PRN IVP Nausea & Vomiting 05/19/17 16:44 06/16/17 16:43 Phenazopyridine HCl (Pyridium) 100 mg DAILYPRN PRN ORAL dysuria 05/19/17 16:44 06/16/17 16:43 Polyethylene Glycol (Miralax) 17 gm DAILYPRN PRN ORAL Constipation 05/19/17 16:44 06/16/17 16:43 Risperidone (RisperDAL) 1 mg BEDTIME ORAL 05/19/17 21:00 06/17/17 20:59 05/19/17 20:02 Risperidone (RisperDAL) 1 mg DAILY ORAL 05/20/17 09:00 06/19/17 08:59 05/20/17 08:48 Temazepam (Restoril) 15 mg HSPRN PRN ORAL Insomnia 05/19/17 16:45 05/24/17 16:44 Vancomycin HCl (Vanco rx to dose) 1 ea DAILY PRN MISC Per rx protocol 05/20/17 10:30 06/19/17 10:29 Vancomycin HCl/ Dextrose 250 ml @ 125 mls/hr Q24H IVPB 05/20/17 13:30 05/25/17 13:29 05/20/17 14:41 MARTIN MAKI May 20, 2017 18:46
[2017-05-20 20:00] VITALS: BP 143/67
[2017-05-21 00:01] VITALS: BP 146/71
[2017-05-21 04:00] VITALS: BP 142/62
--- NOTE | 2017-05-21 06:05 | General Progress Note ---
Progress Note Progress Note REHAB FOLLOW UP PROGRESS NOTE: SUBJECTIVE: AT BED, 1:1 SITTER PRESENT CALM RESTING AT BED, SMILING FEEDING ASSIST TOLERATING SOFT DIET. NO BM LESS >> AGITATION. PER PT >> Rolling * Contact Guard Assistance Supine to Sit * Contact Guard Assistance Bed Mobility Assistive Devices * Bed Rail Sit to Stand * Minimal Assistance Bed to Chair/Wheelchair * Minimal Assistance REVIEW OF SYSTEMS: Not obtainable. PHYSICAL EXAMINATION: VITAL SIGNS: PER CHART NOTED. HEENT: No facial droop noted. NECK: Supple HEART: Regular rhythm and rate. LUNGS: Clear to auscultation bilaterally. ABDOMEN: Soft, nontender, and nondistended. Normal bowel sounds. EXTREMITIES: No pretibial edema. No calf tenderness. No clubbing or cyanosis. NEUROLOGIC: The patient is awake. Follows minimal commands LABORATORY DATA: PER CHART NOTED. URINE CULTURE Preliminary Organism 1 STAPHYLOCOCCUS AUREUS COLONY COUNT: >100,000 CFU/ML STA AUREUS M.I.C. RX --------- --- CIPROFLOXACIN >=8 R CLINDAMYCIN <=0.25 S ERYTHROMYCIN <=0.25 S GENTAMICIN >=16 R LEVOFLOXACIN >=8 R NITROFURANTOIN <=16 S BENZYLPENICILLIN >=0.5 R TETRACYCLINE >=16 R TRIMETHOPRIM/SULFA <=10 S VANCOMYCIN <=0.5 S RIFAMPIN <=0.5 S + MRSA NARES. ASSESSMENT: The patient is an 81-year-old female with: 1. Multifactorial encephalopathy. 2. 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 3. Dementia. 4. Aphasia. 5. Possible dysphagia. 6. Debility and functional decline. 7. Gait abnormality. 8. Bipolar disorder and anxiety disorder. 9. Depression. 10. Paroxysmal atrial fibrillation. 11. Hyperlipidemia. 12. Hypertension. 13. Diabetes mellitus. 14. Elevated proBNP level. 15. Possible urinary tract infection.. 16. Status post [facility]. DYSPHAGIA UTI + MRSA NARES PER PSYCH >> dementia with behavioral disturbance RECOMMENDATIONS: 24-hours nursing care. Physical therapy for range of motion, transfer training, endurance, balance, and ambulation training with appropriate assistive device. Occupational therapy for activities of daily living, equipment, function and transfer training, upper extremity range of motion and strengthening exercise. Speech therapy for retraining on status of her cognition, memory, speech, language, and swallow retraining and aspiration precaution. 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 PSYCH F/U Strict fall precaution, pressure ulcer precaution, aspiration precaution, and cardiac precaution. Continue medical management per medicine. ABX PER ID. FEEDING ASSIST ASPIRATION PRECAUTION BACTROBAN NARES BID X 5 DAYS MRSA CONTACT ISOLATION VIDEO SWALLOW STUDY > ST+ RADIOLOGY D/W STAFF. COLACE 100 MG PO BID, MIRALAX 17 GM PO QHS >> HOLD LOOSE STOOL RAOUL LERMA M.D. May 21, 2017 06:05
[2017-05-21 08:00] VITALS: BP 138/52
[2017-05-21] MEDS: Digoxin 0.125mg tab ORAL SCH (09:21)
[2017-05-21] MEDS: Docusate 100mg cap ORAL SCH ×2 (09:21→18:17)
[2017-05-21] MEDS: Carvedilol 6.25mg Tab ORAL SCH ×2 (09:21→20:22)
[2017-05-21] MEDS: Heparin 5000 units/ml inj SUBQ SCH ×2 (09:23→20:25)
--- NOTE | 2017-05-21 09:53 | General Progress Note ---
Assessment/Plan Assessment/Plan 1. Urinary tract infection, antibiotics as per ID Service. --> Urine culture reviewed. 2. Fall, unwitnessed. --> CAT scan reviewed of the brain, currently negative. --> Symptomatic treatment as needed. 3. Arrhythmia, seen by Cardiology Service. --> Close monitoring. The patient is on telemetry. --> Echo pending. Cardiac evaluation. 4. Loss of consciousness, altered mental status. --> Neurology Service on board. 5. Coronary artery disease. --> Monitor as needed by Cardiology. 6. Dementia. Closely monitor. Subjective Date patient seen: May 20, 2017 Constitutional: Denies: no symptoms, chills, diaphoresis, fever, malaise, weakness, other HEENT: Denies: no symptoms, eye pain, blurred vision, tearing, double vision, ear pain, ear discharge, nose pain, nose congestion, throat pain, throat swelling, mouth pain, mouth swelling, other Cardiovascular: Denies: no symptoms, chest pain, edema, irregular heart rate, lightheadedness, palpitations, syncope, other Respiratory: Denies: no symptoms, cough, orthopnea, shortness of breath, SOB with excertion, SOB at rest, sputum, stridor, wheezing, other Gastrointestinal/Abdominal: Denies: no symptoms, abdomen distended, abdominal pain, black stools, tarry stools, blood in stool, constipated, diarrhea, difficulty swallowing, nausea, poor appetite, poor fluid intake, rectal bleeding , vomiting, other Genitourinary: Denies: no symptoms, burning, discharge, frequency, flank pain, hematuria, incontinence, pain, urgency, other Neurologic/Psychiatric: Denies: no symptoms, anxiety, depressed, emotional problems, headache, numbness, paresthesia, pre-existing deficit, seizure, tingling, tremors, weakness, other Hematologic/Lymphatic: Reports: anemia Allergies: Coded Allergies: No Known Allergies (Unverified , 05/17/17) Subjective No respiratory distress. No fever or chills. Objective Last 24 Hour Vital Signs Date Time Temp Pulse Resp B/P (MAP) Pulse Ox O2 Delivery O2 Flow Rate FiO2 05/21/17 09:21 83 138/52 05/21/17 09:21 83 05/21/17 08:00 97.5 83 20 138/52 83 97.5 05/21/17 04:00 97.2 72 20 142/62 96 Room Air 97.2 05/21/17 00:01 97.9 88 19 146/71 96 Room Air 97.9 05/20/17 21:04 91 143/67 05/20/17 20:00 98.1 91 20 143/67 97 Room Air 98.1 05/20/17 19:48 61 19 Room Air 21 05/20/17 16:00 98.2 95 19 140/70 96 98.2 05/20/17 12:00 97.9 96 19 137/64 97 97.9 Intake and Output 05/20/17 05/21/17 19:00 07:00 Intake Total 905 ml Balance 905 ml Intake Oral 600 ml IV Total 305 ml # Voids 2 2 # Bowel Movements 1 Height (Feet): 5 Height (Inches): 5.00 Weight (Pounds): 148 General Appearance: no apparent distress Respiratory/Chest: decreased breath sounds Abdomen: non tender, soft Cesar Salvador May 21, 2017 09:53
--- NOTE | 2017-05-21 10:27 | Diagnostic Imaging Report ---
APPROVED REPORT CPT Code: 58722 Vascular Symptoms Syncope Comments: AMS Doppler Spectral Velocity Analysis RightLeft RIGHT SIDE: CCA - Imaging reveals no significant plaque in the common carotid artery. ICA The Doppler signal indicates the degree of stenosis is minimal (10-20%) in the internal carotid artery, and in the external carotid artery. LEFT SIDE: CCA - Imaging reveals no significant plaque in the common carotid artery. ICA arteries. The Doppler signal indicates the degree of stenosis is minimal (10-20%) in the internal carotid artery, and in the external carotid artery. The distal internal carotid artery and both vertebral arteries were not imaged, due to patients altered mental status.
[2017-05-21 12:00] VITALS: BP 116/65
--- NOTE | 2017-05-21 12:35 | Infectious Diseases Prog Note ---
Assessment/Plan Assessment/Plan antibiotics : vancomycin iv A 1. MRSA UTI 2. DM 3. HTN 4. dementia P 1. continue iv vancomycin 2. will follow up cultures Subjective Constitutional: Denies: fever, chills Respiratory: Denies: shortness of breath, dry cough Gastrointestinal/Abdominal: Denies: nausea, vomiting, diarrhea Musculoskeletal: Denies: pain Allergies: Coded Allergies: No Known Allergies (Unverified , 05/17/17) Objective Vital Signs Last 24 Hour Vital Signs Date Time Temp Pulse Resp B/P (MAP) Pulse Ox O2 Delivery O2 Flow Rate FiO2 05/21/17 12:00 97.0 99 20 116/65 95 97.0 05/21/17 09:21 83 138/52 05/21/17 09:21 83 05/21/17 08:00 97.5 83 20 138/52 83 97.5 05/21/17 07:09 66 18 Room Air 21 05/21/17 04:00 97.2 72 20 142/62 96 Room Air 97.2 05/21/17 00:01 97.9 88 19 146/71 96 Room Air 97.9 05/20/17 21:04 91 143/67 05/20/17 20:00 98.1 91 20 143/67 97 Room Air 98.1 05/20/17 19:48 61 19 Room Air 21 05/20/17 16:00 98.2 95 19 140/70 96 98.2 Height (Feet): 5 Height (Inches): 5.00 Weight (Pounds): 148 Respiratory/Chest: lungs clear Cardiovascular: normal rate, regular rhythm, no gallop/murmur Abdomen: soft, non tender Extremities: no edema MUMTAZ GARCIA May 21, 2017 12:35
[2017-05-21] MEDS: Vancomycin 1500mg IVPB SCH (13:50)
--- NOTE | 2017-05-21 15:21 | Pulmonology Progress Note ---
Assessment/Plan Problems: (1) Fall (2) UTI (urinary tract infection) (3) Diabetes mellitus (4) Arrhythmia (5) CAD (coronary artery disease) (6) Dementia Assessment/Plan improving all labs and notes reviewed continue abx check cultures pt/ot in progess med/surg dc planning soon Subjective ROS Limited/Unobtainable: No Allergies: Coded Allergies: No Known Allergies (Unverified , 05/17/17) Objective Last 24 Hour Vital Signs Date Time Temp Pulse Resp B/P (MAP) Pulse Ox O2 Delivery O2 Flow Rate FiO2 05/21/17 12:00 97.0 99 20 116/65 95 97.0 05/21/17 09:21 83 138/52 05/21/17 09:21 83 05/21/17 08:00 97.5 83 20 138/52 83 97.5 05/21/17 07:09 66 18 Room Air 21 05/21/17 04:00 97.2 72 20 142/62 96 Room Air 97.2 05/21/17 00:01 97.9 88 19 146/71 96 Room Air 97.9 05/20/17 21:04 91 143/67 05/20/17 20:00 98.1 91 20 143/67 97 Room Air 98.1 05/20/17 19:48 61 19 Room Air 21 05/20/17 16:00 98.2 95 19 140/70 96 98.2 Intake and Output 05/20/17 05/21/17 19:00 07:00 Intake Total 905 ml Balance 905 ml Intake Oral 600 ml IV Total 305 ml # Voids 2 2 # Bowel Movements 1 Objective General Appearance: WD/WN Lines, tubes and drains: peripheral HEENT: normocephalic, atraumatic Neck: non-tender, normal alignment Respiratory/Chest: chest wall non-tender, lungs clear Breasts: no masses Cardiovascular/Chest: normal peripheral pulses, normal rate Abdomen: normal bowel sounds, non tender Genitourinary/Rectal: normal genital exam, heme negative stool Extremities: normal range of motion, non-tender Skin Exam: normal pigmentation Current Medications Medications (Trade) Dose Ordered Sig/Esteban Route PRN Reason Start Time Stop Time Status Last Admin Dose Admin Acetaminophen (Tylenol) 650 mg Q4H PRN ORAL fever 05/19/17 16:43 06/16/17 16:42 Albuterol/ Ipratropium (Albuterol/ Ipratropium) 3 ml EVERY 4 HOURS PRN HHN Shortness of Breath 05/19/17 17:00 05/22/17 21:29 Carvedilol (Coreg) 12.5 mg EVERY 12 HOURS ORAL 05/20/17 21:00 06/19/17 20:59 05/21/17 09:21 Digoxin (Lanoxin) 0.125 mg DAILY ORAL 05/20/17 09:00 06/17/17 08:59 05/21/17 09:21 Docusate Sodium (Colace) 100 mg TWICE A DAY ORAL 05/21/17 09:00 06/20/17 08:59 05/21/17 09:21 Haloperidol Lactate (Haldol) 5 mg Q6H PRN IM Agitation 05/19/17 16:44 06/17/17 16:43 Heparin Sodium (Porcine) (Heparin 5000 units/ml) 5,000 units EVERY 12 HOURS SUBQ 05/19/17 21:00 06/17/17 08:59 05/21/17 09:23 Morphine Sulfate (Morphine Sulfate) 2 mg EVERY 4 HOURS PRN IVP Moderate Pain (Pain Scale 4-6) 05/19/17 16:44 05/24/17 16:43 05/20/17 17:49 Mupirocin (Bactroban Oint) 1 applic Q12HR TOPIC 05/20/17 21:00 05/25/17 23:59 05/20/17 21:11 Ondansetron HCl (Zofran) 4 mg Q6H PRN IVP Nausea & Vomiting 05/19/17 16:44 06/16/17 16:43 Phenazopyridine HCl (Pyridium) 100 mg DAILYPRN PRN ORAL dysuria 05/19/17 16:44 06/16/17 16:43 Polyethylene Glycol (Miralax) 17 gm BEDTIME ORAL 05/21/17 21:00 06/20/17 20:59 Polyethylene Glycol (Miralax) 17 gm DAILYPRN PRN ORAL Constipation 05/19/17 16:44 06/16/17 16:43 Risperidone (RisperDAL) 1 mg BEDTIME ORAL 05/19/17 21:00 06/17/17 20:59 05/20/17 21:04 Risperidone (RisperDAL) 1 mg DAILY ORAL 05/20/17 09:00 06/19/17 08:59 05/21/17 09:21 Temazepam (Restoril) 15 mg HSPRN PRN ORAL Insomnia 05/19/17 16:45 05/24/17 16:44 Vancomycin HCl (Vanco rx to dose) 1 ea DAILY PRN MISC Per rx protocol 05/20/17 10:30 06/19/17 10:29 Vancomycin HCl/ Dextrose 250 ml @ 125 mls/hr Q24H IVPB 05/20/17 13:30 05/25/17 13:29 05/21/17 13:50 MARTIN MAKI May 21, 2017 15:21
[2017-05-21 15:46] VITALS: BP 144/65
[2017-05-21] MEDS ORDERED: BACTRIM-DS1 EA ORAL (15:51)
--- NOTE | 2017-05-21 16:03 | Cardiology Progress Note ---
Assessment/Plan Assessment/Plan 1. Possible syncopal event leading to unwitnessed fall, carotid US was normal, not feasible to obtain orthostatics. 2. Diabetes mellitus continue aspirin and atorvastatin. 3. History of hypertension, increase carvedilol to 25mg bid. 4. History of congestive heart failure. Currently, the patient does not appear to be in heart failure clinically. Awaiting the results of 2D echo. Subjective Subjective Transferred out to the med-surg unit. No cardiac events noted. Objective Last 24 Hour Vital Signs Date Time Temp Pulse Resp B/P (MAP) Pulse Ox O2 Delivery O2 Flow Rate FiO2 05/21/17 15:46 98.4 82 20 144/65 97 98.4 05/21/17 12:00 97.0 99 20 116/65 95 97.0 05/21/17 09:21 83 138/52 05/21/17 09:21 83 05/21/17 08:00 97.5 83 20 138/52 83 97.5 05/21/17 07:09 66 18 Room Air 21 05/21/17 04:00 97.2 72 20 142/62 96 Room Air 97.2 05/21/17 00:01 97.9 88 19 146/71 96 Room Air 97.9 05/20/17 21:04 91 143/67 05/20/17 20:00 98.1 91 20 143/67 97 Room Air 98.1 05/20/17 19:48 61 19 Room Air 21 05/20/17 16:00 98.2 95 19 140/70 96 98.2 Intake and Output 05/20/17 05/21/17 19:00 07:00 Intake Total 905 ml Balance 905 ml Intake Oral 600 ml IV Total 305 ml # Voids 2 2 # Bowel Movements 1 Objective HEENT: Atraumatic and normocephalic. Anicteric. Pupils are equal, round, and reactive to light and accommodation. Extraocular muscles intact. NECK: JVP less than 5 cm. No carotid bruit. Carotid upstrokes 2+ bilaterally. CARDIOVASCULAR: Normal S1 and S2. There is 2/6 grade midsystolic murmur at the left sternal border. PMI is at fourth intercostal space at the midclavicular line. LUNGS: Clear to auscultation bilaterally. ABDOMEN: Soft, nontender, and nondistended. No hepatosplenomegaly. Positive bowel sounds. EXTREMITIES: No evidence of edema, clubbing, or cyanosis. JH FONSECA May 21, 2017 16:02
[2017-05-21] MEDS ORDERED: D5W 275ml ONE (17:18)
[2017-05-21] MEDS ORDERED: Tubing IV Secondary IV ONE (17:18)
[2017-05-21] MEDS: Aspirin EC 81mg tab ORAL SCH (18:17)
[2017-05-21 20:02] VITALS: BP 106/54
[2017-05-21] MEDS: Miralax 17gm pkt ORAL SCH (20:21)
[2017-05-21] MEDS: Atorvastatin 20mg tab ORAL SCH (20:22)
--- NOTE | 2017-05-21 21:41 | General Progress Note ---
Assessment/Plan Assessment/Plan dementia with behavioral disturbance encephalopathy -cont risperdal -increase the dose -haldol IM Subjective Date patient seen: May 21, 2017 Neurologic/Psychiatric: Reports: anxiety, depressed Allergies: Coded Allergies: No Known Allergies (Unverified , 05/17/17) Subjective the pt is calmer more manageable Objective Last 24 Hour Vital Signs Date Time Temp Pulse Resp B/P (MAP) Pulse Ox O2 Delivery O2 Flow Rate FiO2 05/21/17 20:22 82 106/54 05/21/17 20:02 97.7 82 15 106/54 97.7 05/21/17 19:55 82 18 Room Air 21 05/21/17 15:46 98.4 82 20 144/65 97 98.4 05/21/17 12:00 97.0 99 20 116/65 95 97.0 05/21/17 09:21 83 138/52 05/21/17 09:21 83 05/21/17 08:00 97.5 83 20 138/52 83 97.5 05/21/17 07:09 66 18 Room Air 21 05/21/17 04:00 97.2 72 20 142/62 96 Room Air 97.2 05/21/17 00:01 97.9 88 19 146/71 96 Room Air 97.9 Intake and Output 05/20/17 05/21/17 19:00 07:00 Intake Total 905 ml Balance 905 ml Intake Oral 600 ml IV Total 305 ml # Voids 2 2 # Bowel Movements 1 Height (Feet): 5 Height (Inches): 5.00 Weight (Pounds): 150 Shana Correa M.D. May 21, 2017 21:41
[2017-05-22 00:03] VITALS: BP 106/50
[2017-05-22 04:09] VITALS: BP 114/51
[2017-05-22 08:11] VITALS: BP 125/67
[2017-05-22] MEDS: Digoxin 0.125mg tab ORAL SCH (09:26)
[2017-05-22] MEDS: Aspirin EC 81mg tab ORAL SCH (09:26)
[2017-05-22] MEDS: Docusate 100mg cap ORAL SCH ×2 (09:26→17:19)
[2017-05-22] MEDS: Heparin 5000 units/ml inj SUBQ SCH ×2 (09:31→21:00)
[2017-05-22] MEDS: Carvedilol 6.25mg Tab ORAL SCH ×2 (09:39→21:36)
--- NOTE | 2017-05-22 09:41 | General Progress Note ---
Progress Note Progress Note REHAB FOLLOW UP PROGRESS NOTE: SUBJECTIVE: SITTING ON CHAIR. CALM 1:1 SITTER PRESENT 30-40 % PO INTAKE >> MECH SOFT DIET WITH FEEDING ASSIST. Rolling * Contact Guard Assistance Supine to Sit * Contact Guard Assistance Bed Mobility Assistive Devices * Bed Rail Sit to Stand * Contact Guard Assistance Bed to Chair/Wheelchair * Minimal Assistance Distance * 50ft Assistance * Minimal Assistance * Contact Guard Assistance Assistive Device * Front Wheel Walker * REVIEW OF SYSTEMS: No SOB, N/V, CP, ABD PAIN PHYSICAL EXAMINATION: VITAL SIGNS: PER CHART NOTED. HEENT: No facial droop noted. NECK: Supple HEART: Regular rhythm and rate. LUNGS: Clear to auscultation bilaterally. ABDOMEN: Soft, nontender, and nondistended. Normal bowel sounds. EXTREMITIES: No pretibial edema. No calf tenderness. No clubbing or cyanosis. NEUROLOGIC: The patient is awake. Follows simple commands LABORATORY DATA: PER CHART NOTED. URINE CULTURE Final COMMENTS: KNOWN MRSA. Organism 1 STAPHYLOCOCCUS AUREUS - MRSA COLONY COUNT: >100,000 CFU/ML STA AUR MR M.I.C. RX --------- --- CIPROFLOXACIN >=8 R CLINDAMYCIN <=0.25 S ERYTHROMYCIN <=0.25 S GENTAMICIN >=16 R LEVOFLOXACIN >=8 R NITROFURANTOIN <=16 S OXACILLIN >=4 R BENZYLPENICILLIN >=0.5 R TETRACYCLINE >=16 R TRIMETHOPRIM/SULFA <=10 S VANCOMYCIN <=0.5 S RIFAMPIN <=0.5 S + MRSA NARES. ASSESSMENT: The patient is an 81-year-old female with: 1. Multifactorial encephalopathy. 2. 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 3. Dementia. 4. Aphasia. 5. Possible dysphagia. 6. Debility and functional decline. 7. Gait abnormality. 8. Bipolar disorder and anxiety disorder. 9. Depression. 10. Paroxysmal atrial fibrillation. 11. Hyperlipidemia. 12. Hypertension. 13. Diabetes mellitus. 14. Elevated proBNP level. 15. Possible urinary tract infection.. 16. Status post unwitnessed fall at custodial facility. DYSPHAGIA UTI , MRSA + MRSA NARES PER PSYCH >> dementia with behavioral disturbance RECOMMENDATIONS: 24-hours nursing care. Physical therapy for range of motion, transfer training, endurance, balance, and ambulation training with appropriate assistive device. Occupational therapy for activities of daily living, equipment, function and transfer training, upper extremity range of motion and strengthening exercise. Speech therapy for retraining on status of her cognition, memory, speech, language, and swallow retraining and aspiration precaution. 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 PSYCH F/U Strict fall precaution, pressure ulcer precaution, aspiration precaution, and cardiac precaution. Continue medical management per medicine. ABX PER ID. FEEDING ASSIST ASPIRATION PRECAUTION BACTROBAN NARES BID X 5 DAYS MRSA CONTACT ISOLATION COLACE 100 MG PO BID, MIRALAX 17 GM PO QHS >> HOLD LOOSE STOOL DIETITIAN CONSULT AND FOLLOW UP DIET SUPPLEMENT RAOUL LERMA M.D. May 22, 2017 09:41
--- NOTE | 2017-05-22 10:54 | Infectious Diseases Prog Note ---
Assessment/Plan Assessment/Plan antibiotics : vancomycin iv A 1. MRSA UTI 2. DM 3. HTN 4. dementia P 1. continue iv vancomycin in hospital 2. po bactrim 1 tab ds bid on discharge 2 more days 3. will follow up cultures Subjective Constitutional: Denies: fever, chills Respiratory: Denies: shortness of breath, dry cough Gastrointestinal/Abdominal: Denies: nausea, vomiting, diarrhea Musculoskeletal: Denies: pain Allergies: Coded Allergies: No Known Allergies (Unverified , 05/17/17) Objective Vital Signs Last 24 Hour Vital Signs Date Time Temp Pulse Resp B/P (MAP) Pulse Ox O2 Delivery O2 Flow Rate FiO2 05/22/17 09:39 74 125/67 05/22/17 09:26 74 05/22/17 08:11 97.7 74 18 125/67 98 Room Air 97.7 05/22/17 04:09 97.9 66 16 114/51 98 97.9 05/22/17 00:03 97.5 72 16 106/50 98 97.5 05/21/17 20:22 82 106/54 05/21/17 20:02 97.7 82 15 106/54 97.7 05/21/17 19:55 82 18 Room Air 21 05/21/17 15:46 98.4 82 20 144/65 97 98.4 05/21/17 12:00 97.0 99 20 116/65 95 97.0 Height (Feet): 5 Height (Inches): 5.00 Weight (Pounds): 150 Respiratory/Chest: lungs clear Cardiovascular: normal rate, regular rhythm, no gallop/murmur Abdomen: soft, non tender Extremities: no edema MUMTAZ GARCIA May 22, 2017 10:54
--- NOTE | 2017-05-22 11:01 | General Progress Note ---
Assessment/Plan Assessment/Plan 1. Urinary tract infection, antibiotics as per ID Service. --> Urine culture reviewed. 2. Fall, unwitnessed. --> CAT scan reviewed of the brain, currently negative. --> Symptomatic treatment as needed. 3. Arrhythmia, seen by Cardiology Service. --> Close monitoring. The patient is on telemetry. --> Echo reviewed. Cardiac evaluation. 4. Loss of consciousness, altered mental status. --> Neurology Service on board. 5. Coronary artery disease. --> Monitor as needed by Cardiology. 6. Dementia. Closely monitor. Subjective Date patient seen: May 21, 2017 Constitutional: Denies: no symptoms, chills, diaphoresis, fever, malaise, weakness, other HEENT: Denies: no symptoms, eye pain, blurred vision, tearing, double vision, ear pain, ear discharge, nose pain, nose congestion, throat pain, throat swelling, mouth pain, mouth swelling, other Cardiovascular: Denies: no symptoms, chest pain, edema, irregular heart rate, lightheadedness, palpitations, syncope, other Respiratory: Denies: no symptoms, cough, orthopnea, shortness of breath, SOB with excertion, SOB at rest, sputum, stridor, wheezing, other Gastrointestinal/Abdominal: Denies: no symptoms, abdomen distended, abdominal pain, black stools, tarry stools, blood in stool, constipated, diarrhea, difficulty swallowing, nausea, poor appetite, poor fluid intake, rectal bleeding , vomiting, other Genitourinary: Denies: no symptoms, burning, discharge, frequency, flank pain, hematuria, incontinence, pain, urgency, other Allergies: Coded Allergies: No Known Allergies (Unverified , 05/17/17) Subjective No new events overnight. Stable. Objective Last 24 Hour Vital Signs Date Time Temp Pulse Resp B/P (MAP) Pulse Ox O2 Delivery O2 Flow Rate FiO2 05/22/17 09:39 74 125/67 05/22/17 09:26 74 05/22/17 08:11 97.7 74 18 125/67 98 Room Air 97.7 05/22/17 04:09 97.9 66 16 114/51 98 97.9 05/22/17 00:03 97.5 72 16 106/50 98 97.5 05/21/17 20:22 82 106/54 05/21/17 20:02 97.7 82 15 106/54 97.7 05/21/17 19:55 82 18 Room Air 21 05/21/17 15:46 98.4 82 20 144/65 97 98.4 05/21/17 12:00 97.0 99 20 116/65 95 97.0 Intake and Output 05/21/17 05/22/17 19:00 07:00 Intake Total 360 ml Balance 360 ml Intake Oral 360 ml # Voids 1 Height (Feet): 5 Height (Inches): 5.00 Weight (Pounds): 150 Cesar Salvador May 22, 2017 11:01
--- NOTE | 2017-05-22 11:05 | Pulmonology Progress Note ---
Assessment/Plan Problems: (1) Fall (2) UTI (urinary tract infection) (3) Diabetes mellitus (4) Arrhythmia (5) CAD (coronary artery disease) (6) Dementia Assessment/Plan no new complains improving all labs and notes reviewed continue abx check cultures pt/ot in progess med/surg dc planning soon Subjective ROS Limited/Unobtainable: No Constitutional: Reports: no symptoms HEENT: Repors: no symptoms Respiratory: Reports: no symptoms Allergies: Coded Allergies: No Known Allergies (Unverified , 05/17/17) Objective Last 24 Hour Vital Signs Date Time Temp Pulse Resp B/P (MAP) Pulse Ox O2 Delivery O2 Flow Rate FiO2 05/22/17 09:39 74 125/67 05/22/17 09:26 74 05/22/17 08:11 97.7 74 18 125/67 98 Room Air 97.7 05/22/17 04:09 97.9 66 16 114/51 98 97.9 05/22/17 00:03 97.5 72 16 106/50 98 97.5 05/21/17 20:22 82 106/54 05/21/17 20:02 97.7 82 15 106/54 97.7 05/21/17 19:55 82 18 Room Air 21 05/21/17 15:46 98.4 82 20 144/65 97 98.4 05/21/17 12:00 97.0 99 20 116/65 95 97.0 Intake and Output 05/21/17 05/22/17 19:00 07:00 Intake Total 360 ml Balance 360 ml Intake Oral 360 ml # Voids 1 Objective General Appearance: WD/WN Lines, tubes and drains: peripheral HEENT: normocephalic, atraumatic Neck: non-tender, normal alignment Respiratory/Chest: chest wall non-tender, lungs clear Breasts: no masses Cardiovascular/Chest: normal peripheral pulses, normal rate Abdomen: normal bowel sounds, non tender Genitourinary/Rectal: normal genital exam, heme negative stool Extremities: normal range of motion, non-tender Skin Exam: normal pigmentation Current Medications Medications (Trade) Dose Ordered Sig/Esteban Route PRN Reason Start Time Stop Time Status Last Admin Dose Admin Acetaminophen (Tylenol) 650 mg Q4H PRN ORAL fever 05/19/17 16:43 06/16/17 16:42 Albuterol/ Ipratropium (Albuterol/ Ipratropium) 3 ml EVERY 4 HOURS PRN HHN Shortness of Breath 05/19/17 17:00 05/22/17 21:29 Aspirin (Ecotrin) 81 mg DAILY ORAL 05/21/17 16:00 06/20/17 15:59 05/22/17 09:26 Atorvastatin Calcium (Lipitor) 20 mg BEDTIME ORAL 05/21/17 21:00 06/20/17 20:59 05/21/17 20:22 Carvedilol (Coreg) 25 mg EVERY 12 HOURS ORAL 05/21/17 21:00 06/20/17 20:59 05/21/17 20:22 Digoxin (Lanoxin) 0.125 mg DAILY ORAL 05/20/17 09:00 06/17/17 08:59 05/22/17 09:26 Docusate Sodium (Colace) 100 mg TWICE A DAY ORAL 05/21/17 09:00 06/20/17 08:59 05/22/17 09:26 Haloperidol Lactate (Haldol) 5 mg Q6H PRN IM Agitation 05/19/17 16:44 06/17/17 16:43 Heparin Sodium (Porcine) (Heparin 5000 units/ml) 5,000 units EVERY 12 HOURS SUBQ 05/19/17 21:00 06/17/17 08:59 05/21/17 20:25 Morphine Sulfate (Morphine Sulfate) 2 mg EVERY 4 HOURS PRN IVP Moderate Pain (Pain Scale 4-6) 05/19/17 16:44 05/24/17 16:43 05/20/17 17:49 Mupirocin (Bactroban Oint) 1 applic Q12HR TOPIC 05/20/17 21:00 05/25/17 23:59 05/22/17 09:31 Ondansetron HCl (Zofran) 4 mg Q6H PRN IVP Nausea & Vomiting 05/19/17 16:44 06/16/17 16:43 Phenazopyridine HCl (Pyridium) 100 mg DAILYPRN PRN ORAL dysuria 05/19/17 16:44 06/16/17 16:43 Polyethylene Glycol (Miralax) 17 gm BEDTIME ORAL 05/21/17 21:00 06/20/17 20:59 05/21/17 20:21 Polyethylene Glycol (Miralax) 17 gm DAILYPRN PRN ORAL Constipation 05/19/17 16:44 06/16/17 16:43 Risperidone (RisperDAL) 1 mg BEDTIME ORAL 05/19/17 21:00 06/17/17 20:59 05/21/17 20:22 Risperidone (RisperDAL) 1 mg DAILY ORAL 05/20/17 09:00 06/19/17 08:59 05/22/17 09:31 Temazepam (Restoril) 15 mg HSPRN PRN ORAL Insomnia 05/19/17 16:45 05/24/17 16:44 Vancomycin HCl (Vanco rx to dose) 1 ea DAILY PRN MISC Per rx protocol 05/20/17 10:30 06/19/17 10:29 Vancomycin HCl/ Dextrose 250 ml @ 125 mls/hr Q24H IVPB 05/20/17 13:30 05/25/17 13:29 05/21/17 13:50 MARTIN MAKI May 22, 2017 11:05
[2017-05-22 12:00] VITALS: BP 124/72
[2017-05-22] MEDS: Vancomycin 1500mg IVPB SCH ×2 (12:54→15:15)
[2017-05-22 16:00] VITALS: BP 128/54
[2017-05-22] MEDS: Vancomycin 1gm in D5W 275ml IVPB SCH (16:23)
[2017-05-22 20:00] VITALS: BP 127/77
[2017-05-22] MEDS: Miralax 17gm pkt ORAL SCH (21:36)
[2017-05-22] MEDS: Atorvastatin 20mg tab ORAL SCH (21:36)
--- NOTE | 2017-05-22 22:00 | Cardiology Progress Note ---
Assessment/Plan Assessment/Plan 1. Possible syncopal event leading to unwitnessed fall, carotid US was normal, not feasible to obtain orthostatics. 2. Diabetes mellitus continue aspirin and atorvastatin. 3. History of hypertension, increase carvedilol to 25mg bid. 4. History of congestive heart failure. Currently, the patient does not appear to be in heart failure clinically. Awaiting the results of 2D echo. Subjective Subjective Denies chest pain or SOB. No cardiac events noted. Objective Last 24 Hour Vital Signs Date Time Temp Pulse Resp B/P (MAP) Pulse Ox O2 Delivery O2 Flow Rate FiO2 05/22/17 21:36 78 127/77 05/22/17 20:00 97.9 78 18 127/77 97 Room Air 97.9 05/22/17 16:00 97.6 72 19 128/54 99 Room Air 97.6 05/22/17 12:00 97.8 78 20 124/72 98 Room Air 97.8 05/22/17 09:39 74 125/67 05/22/17 09:26 74 05/22/17 08:11 97.7 74 18 125/67 98 Room Air 97.7 05/22/17 06:52 80 18 Room Air 21 05/22/17 04:09 97.9 66 16 114/51 98 97.9 05/22/17 00:03 97.5 72 16 106/50 98 97.5 Intake and Output 05/21/17 05/22/17 19:00 07:00 Intake Total 360 ml Balance 360 ml Intake Oral 360 ml # Voids 1 Laboratory Tests Test 05/22/17 12:52 Vancomycin Level Trough 7.8 ug/mL (5.0-12.0) Objective HEENT: Atraumatic and normocephalic. Anicteric. Pupils are equal, round, and reactive to light and accommodation. Extraocular muscles intact. NECK: JVP less than 5 cm. No carotid bruit. Carotid upstrokes 2+ bilaterally. CARDIOVASCULAR: Normal S1 and S2. There is 2/6 grade midsystolic murmur at the left sternal border. PMI is at fourth intercostal space at the midclavicular line. LUNGS: Clear to auscultation bilaterally. ABDOMEN: Soft, nontender, and nondistended. No hepatosplenomegaly. Positive bowel sounds. EXTREMITIES: No evidence of edema, clubbing, or cyanosis. JH FONSECA May 22, 2017 22:00
[2017-05-23] VITALS (8 sets, daily range): BP systolic 82–134; BP diastolic 48–91
--- NOTE | 2017-05-23 00:01 | General Progress Note ---
Assessment/Plan Assessment/Plan dementia with behavioral disturbance encephalopathy -cont risperdal -increase the dose -haldol IM Subjective Neurologic/Psychiatric: Reports: anxiety, depressed, emotional problems Allergies: Coded Allergies: No Known Allergies (Unverified , 05/17/17) Subjective the pt is calmer more manageable Objective Last 24 Hour Vital Signs Date Time Temp Pulse Resp B/P (MAP) Pulse Ox O2 Delivery O2 Flow Rate FiO2 05/22/17 21:36 78 127/77 05/22/17 20:00 97.9 78 18 127/77 97 Room Air 97.9 05/22/17 16:00 97.6 72 19 128/54 99 Room Air 97.6 05/22/17 12:00 97.8 78 20 124/72 98 Room Air 97.8 05/22/17 09:39 74 125/67 05/22/17 09:26 74 05/22/17 08:11 97.7 74 18 125/67 98 Room Air 97.7 05/22/17 06:52 80 18 Room Air 21 05/22/17 04:09 97.9 66 16 114/51 98 97.9 05/22/17 00:03 97.5 72 16 106/50 98 97.5 Intake and Output 05/22/17 05/23/17 19:00 07:00 Intake Total 120 ml 300 ml Balance 120 ml 300 ml Intake Oral 120 ml 300 ml # Voids 2 3 Laboratory Tests 05/22/17 12:52: Vancomycin Level Trough 7.8 Height (Feet): 5 Height (Inches): 5.00 Weight (Pounds): 150 General Appearance: no apparent distress, alert Shana Correa M.D. May 23, 2017 00:01
[2017-05-23] MEDS: Vancomycin 1gm in D5W 275ml IVPB SCH (03:24)
[2017-05-23 07:14] LABS: BASOPHILS % (AUTO) 1.2 % (0.0-2.0); EOSINOPHILS % (AUTO) 4.7 % (0.0-3.0); HEMATOCRIT 38.3 % (37.0-47.0); HEMOGLOBIN 12.6 G/DL (12.0-16.0); LYMPHOCYTES % (AUTO) 33.7 % (20.0-45.0); MEAN CORPUSCULAR VOLUME 90 FL (80-99); MONOCYTES % (AUTO) 10.7 % (1.0-10.0); NEUTROPHILS % (AUTO) 49.7 % (45.0-75.0); PLATELET COUNT 133 K/UL (150-450); RED BLOOD COUNT 4.27 M/UL (4.20-5.40); RED CELL DISTRIBUTION WIDTH 14.3 % (11.6-14.8); WHITE BLOOD COUNT 4.1 K/UL (4.8-10.8)
[2017-05-23 07:32] LABS: ALANINE AMINOTRANSFERASE 32 U/L (12-78); ALBUMIN 2.6 G/DL (3.4-5.0); ALBUMIN/GLOBULIN RATIO 0.7 (1.0-2.7); ALKALINE PHOSPHATASE 74 U/L (46-116); ANION GAP 9 mmol/L (5-15); ASPARTATE AMINO TRANSFERASE 41 U/L (15-37); BILIRUBIN,TOTAL 0.8 MG/DL (0.2-1.0); BLOOD UREA NITROGEN 12 mg/dL (7-18); CALCIUM 9.4 MG/DL (8.5-10.1); CARBON DIOXIDE 26 MMOL/L (21-32); CHLORIDE 104 MMOL/L (98-107); CREATININE 0.6 MG/DL (0.55-1.30); PHOSPHORUS 3.6 MG/DL (2.5-4.9); POTASSIUM 3.8 MMOL/L (3.5-5.1); SODIUM 139 MMOL/L (136-145)
[2017-05-23] MEDS: Heparin 5000 units/ml inj SUBQ SCH ×2 (08:46→21:00)
[2017-05-23] MEDS: Aspirin EC 81mg tab ORAL SCH (08:46)
[2017-05-23] MEDS: Docusate 100mg cap ORAL SCH ×2 (08:46→17:01)
[2017-05-23] MEDS: Digoxin 0.125mg tab ORAL SCH (08:46)
[2017-05-23] MEDS: Carvedilol 6.25mg Tab ORAL SCH ×2 (08:46→21:23)
--- NOTE | 2017-05-23 09:14 | Infectious Diseases Prog Note ---
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 Dementia DM HPN P: change Vancomycin to Po Bactrim Subjective ROS Limited/Unobtainable: Yes Constitutional: Reports: other - doing better Allergies: Coded Allergies: No Known Allergies (Unverified , 05/17/17) Objective Vital Signs Last 24 Hour Vital Signs Date Time Temp Pulse Resp B/P (MAP) Pulse Ox O2 Delivery O2 Flow Rate FiO2 05/23/17 08:46 75 132/69 05/23/17 08:46 75 05/23/17 08:00 97.6 75 20 132/69 98 Room Air 97.6 05/23/17 07:45 73 18 Room Air 21 05/23/17 04:00 97.7 18 124/63 97 Room Air 97.7 05/23/17 00:14 Room Air 05/23/17 00:00 97.3 20 134/65 99 Room Air 97.3 05/22/17 21:36 78 127/77 05/22/17 20:00 Room Air 05/22/17 20:00 97.9 78 18 127/77 97 Room Air 97.9 05/22/17 16:00 97.6 72 19 128/54 99 Room Air 97.6 05/22/17 12:00 97.8 78 20 124/72 98 Room Air 97.8 05/22/17 09:39 74 125/67 05/22/17 09:26 74 Height (Feet): 5 Height (Inches): 5.00 Weight (Pounds): 161 General Appearance: no acute distress HEENT: mucous membranes moist Respiratory/Chest: lungs clear Cardiovascular: normal rate Abdomen: soft, non tender Extremities: other Neurologic/Psychiatric: alert, responsive Laboratory Tests Test 05/22/17 12:52 05/23/17 05:00 Vancomycin Level Trough 7.8 ug/mL (5.0-12.0) White Blood Count 4.1 K/UL (4.8-10.8) L Red Blood Count 4.27 M/UL (4.20-5.40) Hemoglobin 12.6 G/DL (12.0-16.0) Hematocrit 38.3 % (37.0-47.0) Mean Corpuscular Volume 90 FL (80-99) Mean Corpuscular Hemoglobin 29.5 PG (27.0-31.0) Mean Corpuscular Hemoglobin Concent 33.0 G/DL (32.0-36.0) Red Cell Distribution Width 14.3 % (11.6-14.8) Platelet Count 133 K/UL (150-450) L Mean Platelet Volume 10.1 FL (6.5-10.1) Neutrophils (%) (Auto) 49.7 % (45.0-75.0) Lymphocytes (%) (Auto) 33.7 % (20.0-45.0) Monocytes (%) (Auto) 10.7 % (1.0-10.0) H Eosinophils (%) (Auto) 4.7 % (0.0-3.0) H Basophils (%) (Auto) 1.2 % (0.0-2.0) Sodium Level 139 MMOL/L (136-145) Potassium Level 3.8 MMOL/L (3.5-5.1) Chloride Level 104 MMOL/L (98-107) Carbon Dioxide Level 26 MMOL/L (21-32) Anion Gap 9 mmol/L (5-15) Blood Urea Nitrogen 12 mg/dL (7-18) Creatinine 0.6 MG/DL (0.55-1.30) Estimat Glomerular Filtration Rate mL/min (>60) Glucose Level 166 MG/DL (74-106) H Calcium Level 9.4 MG/DL (8.5-10.1) Phosphorus Level 3.6 MG/DL (2.5-4.9) Magnesium Level 1.9 MG/DL (1.8-2.4) Total Bilirubin 0.8 MG/DL (0.2-1.0) Aspartate Amino Transf (AST/SGOT) 41 U/L (15-37) H Alanine Aminotransferase (ALT/SGPT) 32 U/L (12-78) Alkaline Phosphatase 74 U/L (46-116) Total Protein 6.3 G/DL (6.4-8.2) L Albumin 2.6 G/DL (3.4-5.0) L Globulin 3.7 g/dL Albumin/Globulin Ratio 0.7 (1.0-2.7) L Current Medications Medications (Trade) Dose Ordered Sig/Esteban Route PRN Reason Start Time Stop Time Status Last Admin Dose Admin Acetaminophen (Tylenol) 650 mg Q4H PRN ORAL fever 05/19/17 16:43 06/16/17 16:42 Aspirin (Ecotrin) 81 mg DAILY ORAL 05/21/17 16:00 06/20/17 15:59 05/23/17 08:46 Atorvastatin Calcium (Lipitor) 20 mg BEDTIME ORAL 05/21/17 21:00 06/20/17 20:59 05/22/17 21:36 Carvedilol (Coreg) 25 mg EVERY 12 HOURS ORAL 05/21/17 21:00 06/20/17 20:59 05/22/17 21:36 Digoxin (Lanoxin) 0.125 mg DAILY ORAL 05/20/17 09:00 06/17/17 08:59 05/23/17 08:46 Docusate Sodium (Colace) 100 mg TWICE A DAY ORAL 05/21/17 09:00 06/20/17 08:59 05/23/17 08:46 Haloperidol Lactate (Haldol) 5 mg Q6H PRN IM Agitation 05/19/17 16:44 06/17/17 16:43 Heparin Sodium (Porcine) (Heparin 5000 units/ml) 5,000 units EVERY 12 HOURS SUBQ 05/19/17 21:00 06/17/17 08:59 05/21/17 20:25 Morphine Sulfate (Morphine Sulfate) 2 mg EVERY 4 HOURS PRN IVP Moderate Pain (Pain Scale 4-6) 05/19/17 16:44 05/24/17 16:43 05/20/17 17:49 Mupirocin (Bactroban Oint) 1 applic Q12HR TOPIC 05/20/17 21:00 05/25/17 23:59 05/23/17 08:51 Ondansetron HCl (Zofran) 4 mg Q6H PRN IVP Nausea & Vomiting 05/19/17 16:44 06/16/17 16:43 Phenazopyridine HCl (Pyridium) 100 mg DAILYPRN PRN ORAL dysuria 05/19/17 16:44 06/16/17 16:43 Polyethylene Glycol (Miralax) 17 gm BEDTIME ORAL 05/21/17 21:00 06/20/17 20:59 05/22/17 21:36 Polyethylene Glycol (Miralax) 17 gm DAILYPRN PRN ORAL Constipation 05/19/17 16:44 06/16/17 16:43 Risperidone (RisperDAL) 1 mg BEDTIME ORAL 05/19/17 21:00 06/17/17 20:59 05/22/17 21:36 Risperidone (RisperDAL) 1 mg DAILY ORAL 05/20/17 09:00 06/19/17 08:59 05/23/17 08:46 Temazepam (Restoril) 15 mg HSPRN PRN ORAL Insomnia 05/19/17 16:45 05/24/17 16:44 Vancomycin HCl (Vanco rx to dose) 1 ea DAILY PRN MISC Per rx protocol 05/20/17 10:30 06/19/17 10:29 Vancomycin HCl 1 gm/Dextrose 275 ml @ 183.708 mls/hr Q12H IVPB 05/22/17 15:00 05/27/17 14:59 05/23/17 03:24 NANI BAPTISTE May 23, 2017 09:14
--- NOTE | 2017-05-23 09:19 | General Progress Note ---
Progress Note Progress Note REHAB FOLLOW UP PROGRESS NOTE: SUBJECTIVE: SITTING ON CHAIR. CALM , SMILING. FOLLOWS SIMPLE COMMANDS. 1:1 SITTER PRESENT PO INTAKE >> MECH SOFT DIET WITH FEEDING ASSIST >> BETTER >>>> 50-100%. * BED MOB, TX, >>>> MIN A. * REVIEW OF SYSTEMS: No SOB, N/V, CP, ABD PAIN PHYSICAL EXAMINATION: VITAL SIGNS: PER CHART NOTED. HEENT: No facial droop noted. NECK: Supple HEART: Regular rhythm and rate. LUNGS: Clear to auscultation bilaterally. ABDOMEN: Soft, nontender, and nondistended. Normal bowel sounds. EXTREMITIES: No pretibial edema. No calf tenderness. No clubbing or cyanosis. NEUROLOGIC: The patient is awake. Follows simple commands LABORATORY DATA: PER CHART NOTED. URINE CULTURE Final COMMENTS: KNOWN MRSA. Organism 1 STAPHYLOCOCCUS AUREUS - MRSA COLONY COUNT: >100,000 CFU/ML STA AUR MR M.I.C. RX --------- --- CIPROFLOXACIN >=8 R CLINDAMYCIN <=0.25 S ERYTHROMYCIN <=0.25 S GENTAMICIN >=16 R LEVOFLOXACIN >=8 R NITROFURANTOIN <=16 S OXACILLIN >=4 R BENZYLPENICILLIN >=0.5 R TETRACYCLINE >=16 R TRIMETHOPRIM/SULFA <=10 S VANCOMYCIN <=0.5 S RIFAMPIN <=0.5 S + MRSA NARES. ASSESSMENT: The patient is an 81-year-old female with: 1. Multifactorial encephalopathy. 2. 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 3. Dementia. 4. Aphasia. 5. Possible dysphagia. 6. Debility and functional decline. 7. Gait abnormality. 8. Bipolar disorder and anxiety disorder. 9. Depression. 10. Paroxysmal atrial fibrillation. 11. Hyperlipidemia. 12. Hypertension. 13. Diabetes mellitus. 14. Elevated proBNP level. 15. Possible urinary tract infection.. 16. Status post unwitnessed fall at correction facility. DYSPHAGIA UTI , MRSA + MRSA NARES PER PSYCH >> dementia with behavioral disturbance RECOMMENDATIONS: 24-hours nursing care. Physical therapy for range of motion, transfer training, endurance, balance, and ambulation training with appropriate assistive device. Occupational therapy for activities of daily living, equipment, function and transfer training, upper extremity range of motion and strengthening exercise. Speech therapy for retraining on status of her cognition, memory, speech, language, and swallow retraining and aspiration precaution. Nursing for her bowel and bladder, medication regimen, skin care prevention of pressure ulcer, patient and gum dipper education. PSYCH F/U Strict fall precaution, pressure ulcer precaution, aspiration precaution, and cardiac precaution. Continue medical management per medicine. ABX PER ID. >> CHANGED TO PO. FEEDING ASSIST ASPIRATION PRECAUTION BACTROBAN NARES BID X 5 DAYS , START ON 05/20/17 MRSA CONTACT ISOLATION COLACE 100 MG PO BID, MIRALAX 17 GM PO QHS >> HOLD LOOSE STOOL DIETITIAN FOLLOW UP. RAOUL LERMA M.D. May 23, 2017 09:19
--- NOTE | 2017-05-23 11:33 | General Progress Note ---
Assessment/Plan Assessment/Plan 1. Urinary tract infection, antibiotics as per ID Service. --> Urine culture reviewed. 2. Fall, unwitnessed. --> CAT scan reviewed of the brain, currently negative. --> Symptomatic treatment as needed. 3. Arrhythmia, seen by Cardiology Service. --> Close monitoring. The patient is on telemetry. --> Echo reviewed. Cardiac evaluation. 4. Loss of consciousness, altered mental status. --> Neurology Service on board. 5. Coronary artery disease. --> Monitor as needed by Cardiology. 6. Dementia. Closely monitor. Subjective Date patient seen: May 22, 2017 Constitutional: Denies: no symptoms, chills, diaphoresis, fever, malaise, weakness, other HEENT: Denies: no symptoms, eye pain, blurred vision, tearing, double vision, ear pain, ear discharge, nose pain, nose congestion, throat pain, throat swelling, mouth pain, mouth swelling, other Cardiovascular: Denies: no symptoms, chest pain, edema, irregular heart rate, lightheadedness, palpitations, syncope, other Respiratory: Denies: no symptoms, cough, orthopnea, shortness of breath, SOB with excertion, SOB at rest, sputum, stridor, wheezing, other Gastrointestinal/Abdominal: Denies: no symptoms, abdomen distended, abdominal pain, black stools, tarry stools, blood in stool, constipated, diarrhea, difficulty swallowing, nausea, poor appetite, poor fluid intake, rectal bleeding , vomiting, other Genitourinary: Denies: no symptoms, burning, discharge, frequency, flank pain, hematuria, incontinence, pain, urgency, other Neurologic/Psychiatric: Denies: no symptoms, anxiety, depressed, emotional problems, headache, numbness, paresthesia, pre-existing deficit, seizure, tingling, tremors, weakness, other Hematologic/Lymphatic: Reports: anemia Allergies: Coded Allergies: No Known Allergies (Unverified , 05/17/17) Subjective No fever or chills. Resting in bed. On abx. Objective Last 24 Hour Vital Signs Date Time Temp Pulse Resp B/P (MAP) Pulse Ox O2 Delivery O2 Flow Rate FiO2 05/23/17 08:46 75 132/69 05/23/17 08:46 75 05/23/17 08:00 97.6 75 20 132/69 98 Room Air 97.6 05/23/17 07:45 73 18 Room Air 21 05/23/17 04:00 97.7 18 124/63 97 Room Air 97.7 05/23/17 00:14 Room Air 05/23/17 00:00 97.3 20 134/65 99 Room Air 97.3 05/22/17 21:36 78 127/77 05/22/17 20:00 Room Air 05/22/17 20:00 97.9 78 18 127/77 97 Room Air 97.9 05/22/17 16:00 97.6 72 19 128/54 99 Room Air 97.6 05/22/17 12:00 97.8 78 20 124/72 98 Room Air 97.8 Intake and Output 05/22/17 05/23/17 20:00 08:00 Intake Total 120 ml 815.000 ml Balance 120 ml 815.000 ml Intake Oral 120 ml 540 ml IV Total 275.000 ml # Voids 3 3 Laboratory Tests 05/22/17 12:52: Vancomycin Level Trough 7.8 05/23/17 05:00: White Blood Count 4.1L, Red Blood Count 4.27, Hemoglobin 12.6, Hematocrit 38.3, Mean Corpuscular Volume 90, Mean Corpuscular Hemoglobin 29.5, Mean Corpuscular Hemoglobin Concent 33.0, Red Cell Distribution Width 14.3, Platelet Count 133L, Mean Platelet Volume 10.1, Neutrophils (%) (Auto) 49.7, Lymphocytes (%) (Auto) 33.7, Monocytes (%) (Auto) 10.7H, Eosinophils (%) (Auto) 4.7H, Basophils (%) ( Auto) 1.2, Sodium Level 139, Potassium Level 3.8, Chloride Level 104, Carbon Dioxide Level 26, Anion Gap 9, Blood Urea Nitrogen 12, Creatinine 0.6, Estimat Glomerular Filtration Rate , Glucose Level 166H, Calcium Level 9.4, Phosphorus Level 3.6, Magnesium Level 1.9, Total Bilirubin 0.8, Aspartate Amino Transf (AST /SGOT) 41H, Alanine Aminotransferase (ALT/SGPT) 32, Alkaline Phosphatase 74, Total Protein 6.3L, Albumin 2.6L, Globulin 3.7, Albumin/Globulin Ratio 0.7L Height (Feet): 5 Height (Inches): 5.00 Weight (Pounds): 161 General Appearance: no apparent distress Respiratory/Chest: decreased breath sounds Abdomen: non tender, soft Edema: trace edema Skin: warm/dry Cesar Salvador May 23, 2017 11:33
--- NOTE | 2017-05-23 12:35 | Pulmonology Progress Note ---
Assessment/Plan Problems: (1) Fall (2) UTI (urinary tract infection) (3) Diabetes mellitus (4) Arrhythmia (5) CAD (coronary artery disease) (6) Dementia Assessment/Plan no new complains improving all labs and notes reviewed continue abx check cultures pt/ot in progess med/surg dc planning soon Subjective ROS Limited/Unobtainable: No Constitutional: Reports: no symptoms HEENT: Repors: no symptoms Respiratory: Reports: no symptoms Cardiovascular: Reports: no symptoms Allergies: Coded Allergies: No Known Allergies (Unverified , 05/17/17) Objective Last 24 Hour Vital Signs Date Time Temp Pulse Resp B/P (MAP) Pulse Ox O2 Delivery O2 Flow Rate FiO2 05/23/17 11:45 73 18 82/48 98 Room Air 05/23/17 08:46 75 132/69 05/23/17 08:46 75 05/23/17 08:00 97.6 75 20 132/69 98 Room Air 97.6 05/23/17 07:45 73 18 Room Air 21 05/23/17 04:00 97.7 18 124/63 97 Room Air 97.7 05/23/17 00:14 Room Air 05/23/17 00:00 97.3 20 134/65 99 Room Air 97.3 05/22/17 21:36 78 127/77 05/22/17 20:00 Room Air 05/22/17 20:00 97.9 78 18 127/77 97 Room Air 97.9 05/22/17 16:00 97.6 72 19 128/54 99 Room Air 97.6 Intake and Output 05/22/17 05/23/17 19:00 07:00 Intake Total 120 ml 815.000 ml Balance 120 ml 815.000 ml Intake Oral 120 ml 540 ml IV Total 275.000 ml # Voids 2 4 Objective General Appearance: WD/WN Lines, tubes and drains: peripheral HEENT: normocephalic, atraumatic Neck: non-tender, normal alignment Respiratory/Chest: chest wall non-tender, lungs clear Breasts: no masses Cardiovascular/Chest: normal peripheral pulses, normal rate Abdomen: normal bowel sounds, non tender Genitourinary/Rectal: normal genital exam, heme negative stool Extremities: normal range of motion, non-tender Skin Exam: normal pigmentation Laboratory Tests 05/22/17 12:52: Vancomycin Level Trough 7.8 05/23/17 05:00: White Blood Count 4.1L, Red Blood Count 4.27, Hemoglobin 12.6, Hematocrit 38.3, Mean Corpuscular Volume 90, Mean Corpuscular Hemoglobin 29.5, Mean Corpuscular Hemoglobin Concent 33.0, Red Cell Distribution Width 14.3, Platelet Count 133L, Mean Platelet Volume 10.1, Neutrophils (%) (Auto) 49.7, Lymphocytes (%) (Auto) 33.7, Monocytes (%) (Auto) 10.7H, Eosinophils (%) (Auto) 4.7H, Basophils (%) ( Auto) 1.2, Sodium Level 139, Potassium Level 3.8, Chloride Level 104, Carbon Dioxide Level 26, Anion Gap 9, Blood Urea Nitrogen 12, Creatinine 0.6, Estimat Glomerular Filtration Rate , Glucose Level 166H, Calcium Level 9.4, Phosphorus Level 3.6, Magnesium Level 1.9, Total Bilirubin 0.8, Aspartate Amino Transf (AST /SGOT) 41H, Alanine Aminotransferase (ALT/SGPT) 32, Alkaline Phosphatase 74, Total Protein 6.3L, Albumin 2.6L, Globulin 3.7, Albumin/Globulin Ratio 0.7L Current Medications Medications (Trade) Dose Ordered Sig/Esteban Route PRN Reason Start Time Stop Time Status Last Admin Dose Admin Acetaminophen (Tylenol) 650 mg Q4H PRN ORAL fever 05/19/17 16:43 06/16/17 16:42 Aspirin (Ecotrin) 81 mg DAILY ORAL 05/21/17 16:00 06/20/17 15:59 05/23/17 08:46 Atorvastatin Calcium (Lipitor) 20 mg BEDTIME ORAL 05/21/17 21:00 06/20/17 20:59 05/22/17 21:36 Carvedilol (Coreg) 25 mg EVERY 12 HOURS ORAL 05/21/17 21:00 06/20/17 20:59 05/22/17 21:36 Digoxin (Lanoxin) 0.125 mg DAILY ORAL 05/20/17 09:00 06/17/17 08:59 05/23/17 08:46 Docusate Sodium (Colace) 100 mg TWICE A DAY ORAL 05/21/17 09:00 06/20/17 08:59 05/23/17 08:46 Haloperidol Lactate (Haldol) 5 mg Q6H PRN IM Agitation 05/19/17 16:44 06/17/17 16:43 Heparin Sodium (Porcine) (Heparin 5000 units/ml) 5,000 units EVERY 12 HOURS SUBQ 05/19/17 21:00 06/17/17 08:59 05/21/17 20:25 Morphine Sulfate (Morphine Sulfate) 2 mg EVERY 4 HOURS PRN IVP Moderate Pain (Pain Scale 4-6) 05/19/17 16:44 05/24/17 16:43 05/20/17 17:49 Mupirocin (Bactroban Oint) 1 applic Q12HR TOPIC 05/20/17 21:00 05/25/17 23:59 05/23/17 08:51 Ondansetron HCl (Zofran) 4 mg Q6H PRN IVP Nausea & Vomiting 05/19/17 16:44 06/16/17 16:43 Phenazopyridine HCl (Pyridium) 100 mg DAILYPRN PRN ORAL dysuria 05/19/17 16:44 06/16/17 16:43 Polyethylene Glycol (Miralax) 17 gm BEDTIME ORAL 05/21/17 21:00 06/20/17 20:59 05/22/17 21:36 Polyethylene Glycol (Miralax) 17 gm DAILYPRN PRN ORAL Constipation 05/19/17 16:44 06/16/17 16:43 Risperidone (RisperDAL) 1 mg BEDTIME ORAL 05/19/17 21:00 06/17/17 20:59 05/22/17 21:36 Risperidone (RisperDAL) 1 mg DAILY ORAL 05/20/17 09:00 06/19/17 08:59 05/23/17 08:46 Temazepam (Restoril) 15 mg HSPRN PRN ORAL Insomnia 05/19/17 16:45 05/24/17 16:44 Trimethoprim/ Sulfamethoxazole (Bactrim Single Strength) 1 ea BID ORAL 05/23/17 18:00 05/30/17 17:59 MARTIN MAKI May 23, 2017 12:35
[2017-05-23] MEDS ORDERED: BACTRIM-DS1 EA ORAL (14:22)
[2017-05-23] MEDS ORDERED: Bactrim SS Tab ORAL SCH (18:00)
[2017-05-23] MEDS: Miralax 17gm pkt ORAL SCH (21:22)
[2017-05-23] MEDS: Atorvastatin 20mg tab ORAL SCH (21:22)
--- NOTE | 2017-05-23 23:38 | Cardiology Progress Note ---
Assessment/Plan Assessment/Plan 1. Possible syncopal event leading to unwitnessed fall, carotid US was normal, not feasible to obtain orthostatics. 2. Diabetes mellitus continue aspirin and atorvastatin. 3. History of hypertension, continue carvedilol. 4. History of congestive heart failure. Currently, the patient does not appear to be in heart failure clinically. Subjective Subjective Denies chest pain or SOB. Objective Last 24 Hour Vital Signs Date Time Temp Pulse Resp B/P (MAP) Pulse Ox O2 Delivery O2 Flow Rate FiO2 05/23/17 21:23 74 120/58 05/23/17 20:52 74 18 Room Air 21 05/23/17 20:00 97.1 78 18 120/58 97 Room Air 97.1 05/23/17 16:00 97.4 61 18 131/91 94 Room Air 97.4 05/23/17 13:30 97.6 78 22 101/58 98 Room Air 97.6 05/23/17 12:30 97.4 68 20 94/51 98 Room Air 97.4 05/23/17 11:45 73 18 82/48 98 Room Air 05/23/17 08:46 75 132/69 05/23/17 08:46 75 05/23/17 08:00 97.6 75 20 132/69 98 Room Air 97.6 05/23/17 07:45 73 18 Room Air 21 05/23/17 04:00 97.7 18 124/63 97 Room Air 97.7 05/23/17 00:14 Room Air 05/23/17 00:00 97.3 20 134/65 99 Room Air 97.3 Intake and Output 05/22/17 05/23/17 19:00 07:00 Intake Total 120 ml 815.000 ml Balance 120 ml 815.000 ml Intake Oral 120 ml 540 ml IV Total 275.000 ml # Voids 2 4 Laboratory Tests Test 05/23/17 05:00 White Blood Count 4.1 K/UL (4.8-10.8) L Red Blood Count 4.27 M/UL (4.20-5.40) Hemoglobin 12.6 G/DL (12.0-16.0) Hematocrit 38.3 % (37.0-47.0) Mean Corpuscular Volume 90 FL (80-99) Mean Corpuscular Hemoglobin 29.5 PG (27.0-31.0) Mean Corpuscular Hemoglobin Concent 33.0 G/DL (32.0-36.0) Red Cell Distribution Width 14.3 % (11.6-14.8) Platelet Count 133 K/UL (150-450) L Mean Platelet Volume 10.1 FL (6.5-10.1) Neutrophils (%) (Auto) 49.7 % (45.0-75.0) Lymphocytes (%) (Auto) 33.7 % (20.0-45.0) Monocytes (%) (Auto) 10.7 % (1.0-10.0) H Eosinophils (%) (Auto) 4.7 % (0.0-3.0) H Basophils (%) (Auto) 1.2 % (0.0-2.0) Sodium Level 139 MMOL/L (136-145) Potassium Level 3.8 MMOL/L (3.5-5.1) Chloride Level 104 MMOL/L (98-107) Carbon Dioxide Level 26 MMOL/L (21-32) Anion Gap 9 mmol/L (5-15) Blood Urea Nitrogen 12 mg/dL (7-18) Creatinine 0.6 MG/DL (0.55-1.30) Estimat Glomerular Filtration Rate mL/min (>60) Glucose Level 166 MG/DL (74-106) H Calcium Level 9.4 MG/DL (8.5-10.1) Phosphorus Level 3.6 MG/DL (2.5-4.9) Magnesium Level 1.9 MG/DL (1.8-2.4) Total Bilirubin 0.8 MG/DL (0.2-1.0) Aspartate Amino Transf (AST/SGOT) 41 U/L (15-37) H Alanine Aminotransferase (ALT/SGPT) 32 U/L (12-78) Alkaline Phosphatase 74 U/L (46-116) Total Protein 6.3 G/DL (6.4-8.2) L Albumin 2.6 G/DL (3.4-5.0) L Globulin 3.7 g/dL Albumin/Globulin Ratio 0.7 (1.0-2.7) L Objective HEENT: Atraumatic and normocephalic. Anicteric. Pupils are equal, round, and reactive to light and accommodation. Extraocular muscles intact. NECK: JVP less than 5 cm. No carotid bruit. Carotid upstrokes 2+ bilaterally. CARDIOVASCULAR: Normal S1 and S2. There is 2/6 grade midsystolic murmur at the left sternal border. PMI is at fourth intercostal space at the midclavicular line. LUNGS: Clear to auscultation bilaterally. ABDOMEN: Soft, nontender, and nondistended. No hepatosplenomegaly. Positive bowel sounds. EXTREMITIES: No evidence of edema, clubbing, or cyanosis. JH FONSECA May 23, 2017 23:38
[2017-05-24] VITALS: BP 129/59
[2017-05-24 04:00] VITALS: BP 124/66
--- NOTE | 2017-05-24 07:05 | General Progress Note ---
Progress Note Progress Note REHAB FOLLOW UP PROGRESS NOTE: SUBJECTIVE: AT BED, +/- AGITATION OVERNIGHT PER SITTER. 1:1 SITTER PRESENT PO INTAKE >> MECH SOFT DIET WITH FEEDING ASSIST >> MUCH IMPROVED BETTER >>>> 50- 100%. * BED MOB, TX, >>>> MIN A. REVIEW OF SYSTEMS: No SOB, N/V, CP, ABD PAIN PHYSICAL EXAMINATION: VITAL SIGNS: PER CHART NOTED. HEENT: No facial droop noted. NECK: Supple HEART: Regular rhythm and rate. LUNGS: Clear to auscultation bilaterally. ABDOMEN: Soft, nontender, and nondistended. Normal bowel sounds. EXTREMITIES: No pretibial edema. No calf tenderness. No clubbing or cyanosis. NEUROLOGIC: The patient is awake. Follows simple commands LABORATORY DATA: PER CHART NOTED. URINE CULTURE Final COMMENTS: KNOWN MRSA. Organism 1 STAPHYLOCOCCUS AUREUS - MRSA COLONY COUNT: >100,000 CFU/ML STA AUR MR M.I.C. RX --------- --- CIPROFLOXACIN >=8 R CLINDAMYCIN <=0.25 S ERYTHROMYCIN <=0.25 S GENTAMICIN >=16 R LEVOFLOXACIN >=8 R NITROFURANTOIN <=16 S OXACILLIN >=4 R BENZYLPENICILLIN >=0.5 R TETRACYCLINE >=16 R TRIMETHOPRIM/SULFA <=10 S VANCOMYCIN <=0.5 S RIFAMPIN <=0.5 S + MRSA NARES. ASSESSMENT: The patient is an 81-year-old female with: 1. Multifactorial encephalopathy. 2. 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 3. Dementia. 4. Aphasia. 5. Possible dysphagia. 6. Debility and functional decline. 7. Gait abnormality. 8. Bipolar disorder and anxiety disorder. 9. Depression. 10. Paroxysmal atrial fibrillation. 11. Hyperlipidemia. 12. Hypertension. 13. Diabetes mellitus. 14. Elevated proBNP level. 15. Possible urinary tract infection.. 16. Status post unwitnessed fall at nursing home facility. DYSPHAGIA UTI , MRSA + MRSA NARES PER PSYCH >> dementia with behavioral disturbance RECOMMENDATIONS: 24-hours nursing care. Physical therapy for range of motion, transfer training, endurance, balance, and ambulation training with appropriate assistive device. Occupational therapy for activities of daily living, equipment, function and transfer training, upper extremity range of motion and strengthening exercise. Speech therapy for retraining on status of her cognition, memory, speech, language, and swallow retraining and aspiration precaution. Nursing for her bowel and bladder, medication regimen, skin care prevention of pressure ulcer, patient and animal nutrition consultant education. PSYCH F/U Strict fall precaution, pressure ulcer precaution, aspiration precaution, and cardiac precaution. Continue medical management per medicine. ABX PER ID. >> CHANGED TO PO. FEEDING ASSIST ASPIRATION PRECAUTION BACTROBAN NARES BID X 5 DAYS , START ON 05/20/17 MRSA CONTACT ISOLATION COLACE 100 MG PO BID, MIRALAX 17 GM PO QHS >> HOLD LOOSE STOOL DIETITIAN FOLLOW UP. MECHANICAL SOFT DIET, THIN LIQUID. RAOUL LERMA M.D. May 24, 2017 07:05
[2017-05-24 07:27] LABS: BASOPHILS % (AUTO) 0.7 % (0.0-2.0); EOSINOPHILS % (AUTO) 3.9 % (0.0-3.0); HEMATOCRIT 41.4 % (37.0-47.0); HEMOGLOBIN 13.9 G/DL (12.0-16.0); MEAN CORPUSCULAR VOLUME 90 FL (80-99); NEUTROPHILS % (AUTO) 56.4 % (45.0-75.0); PLATELET COUNT 143 K/UL (150-450); RED CELL DISTRIBUTION WIDTH 14.4 % (11.6-14.8); WHITE BLOOD COUNT 4.4 K/UL (4.8-10.8)
[2017-05-24 07:29] LABS: ALANINE AMINOTRANSFERASE 34 U/L (12-78); ALBUMIN 2.9 G/DL (3.4-5.0); ALBUMIN/GLOBULIN RATIO 0.7 (1.0-2.7); ALKALINE PHOSPHATASE 82 U/L (46-116); ANION GAP 5 mmol/L (5-15); ASPARTATE AMINO TRANSFERASE 43 U/L (15-37); BILIRUBIN,TOTAL 0.9 MG/DL (0.2-1.0); BLOOD UREA NITROGEN 18 mg/dL (7-18); CALCIUM 9.6 MG/DL (8.5-10.1); CARBON DIOXIDE 30 MMOL/L (21-32); CHLORIDE 105 MMOL/L (98-107); CREATININE 0.8 MG/DL (0.55-1.30); POTASSIUM 3.9 MMOL/L (3.5-5.1); SODIUM 140 MMOL/L (136-145)
[2017-05-24 07:57] VITALS: BP 112/51
[2017-05-24] MEDS: Docusate 100mg cap ORAL SCH (09:45)
[2017-05-24] MEDS: Aspirin EC 81mg tab ORAL SCH (09:46)
[2017-05-24] MEDS: Digoxin 0.125mg tab ORAL SCH (09:47)
[2017-05-24] MEDS: Heparin 5000 units/ml inj SUBQ SCH (09:48)
--- NOTE | 2017-05-24 10:08 | Wound Nurse Progress Note ---
Wound RN Progress Note Wound Consult reassessment - no deterioration noted to admitted foot and toe scabs,remains clean and dry. #1 left knee scar tissue -intact #2 left hip scratches -dry intact #3 left 3rd toe scab-dry ,intact #4 left dorsal aspect of foot scab-dry intact #5 left 1st metatarsal scab.-dry intact Recommendation -Local wound care as ordered -Turn and reposition -Keep clean and dry. -Optimize nutrition -Keep scabs clean and dry, assess for any changes. -Assess and follow up with MD for any change of condition to skin present JADA BELCHER May 24, 2017 10:08
--- NOTE | 2017-05-24 10:18 | General Progress Note ---
Assessment/Plan Assessment/Plan 1. Urinary tract infection, antibiotics as per ID Service. --> Urine culture reviewed. 2. Fall, unwitnessed. --> CAT scan reviewed of the brain, currently negative. --> Symptomatic treatment as needed. 3. Arrhythmia, seen by Cardiology Service. --> Close monitoring. The patient is on telemetry. --> Echo reviewed. Cardiac evaluation. 4. Loss of consciousness, altered mental status. --> Neurology Service on board. 5. Coronary artery disease. --> Monitor as needed by Cardiology. 6. Dementia. Closely monitor. 7. Leukopenia. --> Monitor. Subjective Date patient seen: May 23, 2017 Constitutional: Denies: no symptoms, chills, diaphoresis, fever, malaise, weakness, other HEENT: Denies: no symptoms, eye pain, blurred vision, tearing, double vision, ear pain, ear discharge, nose pain, nose congestion, throat pain, throat swelling, mouth pain, mouth swelling, other Cardiovascular: Denies: no symptoms, chest pain, edema, irregular heart rate, lightheadedness, palpitations, syncope, other Respiratory: Denies: no symptoms, cough, orthopnea, shortness of breath, SOB with excertion, SOB at rest, sputum, stridor, wheezing, other Gastrointestinal/Abdominal: Denies: no symptoms, abdomen distended, abdominal pain, black stools, tarry stools, blood in stool, constipated, diarrhea, difficulty swallowing, nausea, poor appetite, poor fluid intake, rectal bleeding , vomiting, other Genitourinary: Denies: no symptoms, burning, discharge, frequency, flank pain, hematuria, incontinence, pain, urgency, other Neurologic/Psychiatric: Denies: no symptoms, anxiety, depressed, emotional problems, headache, numbness, paresthesia, pre-existing deficit, seizure, tingling, tremors, weakness, other Hematologic/Lymphatic: Reports: anemia Allergies: Coded Allergies: No Known Allergies (Unverified , 05/17/17) Subjective H/H stable. No acute events overnight. On abx. Objective Last 24 Hour Vital Signs Date Time Temp Pulse Resp B/P (MAP) Pulse Ox O2 Delivery O2 Flow Rate FiO2 05/24/17 09:47 70 05/24/17 08:52 70 18 Room Air 21 05/24/17 07:57 97.0 63 18 112/51 97 Room Air 97.0 05/24/17 04:00 97.9 18 124/66 96 Room Air 97.9 05/24/17 00:00 97.5 20 129/59 99 Room Air 97.5 05/24/17 00:00 Room Air 05/23/17 21:23 74 120/58 05/23/17 20:52 74 18 Room Air 21 05/23/17 20:00 Room Air 05/23/17 20:00 97.1 78 18 120/58 97 Room Air 97.1 05/23/17 16:00 97.4 61 18 131/91 94 Room Air 97.4 05/23/17 13:30 97.6 78 22 101/58 98 Room Air 97.6 05/23/17 12:30 97.4 68 20 94/51 98 Room Air 97.4 05/23/17 11:45 73 18 82/48 98 Room Air Intake and Output 05/23/17 05/24/17 19:00 07:00 Intake Total 480 ml Balance 480 ml Intake Oral 480 ml # Voids 3 Laboratory Tests 05/24/17 05:15: White Blood Count 4.4L, Red Blood Count 4.60, Hemoglobin 13.9, Hematocrit 41.4, Mean Corpuscular Volume 90, Mean Corpuscular Hemoglobin 30.1, Mean Corpuscular Hemoglobin Concent 33.5, Red Cell Distribution Width 14.4, Platelet Count 143L, Mean Platelet Volume 11.3H, Neutrophils (%) (Auto) 56.4, Lymphocytes (%) (Auto) 28.0, Monocytes (%) (Auto) 11.0H, Eosinophils (%) (Auto) 3.9H, Basophils (%) ( Auto) 0.7, Sodium Level 140, Potassium Level 3.9, Chloride Level 105, Carbon Dioxide Level 30, Anion Gap 5, Blood Urea Nitrogen 18, Creatinine 0.8, Estimat Glomerular Filtration Rate , Glucose Level 141H, Calcium Level 9.6, Phosphorus Level 4.0, Magnesium Level 1.9, Total Bilirubin 0.9, Aspartate Amino Transf (AST /SGOT) 43H, Alanine Aminotransferase (ALT/SGPT) 34, Alkaline Phosphatase 82, Total Protein 7.1, Albumin 2.9L, Globulin 4.2, Albumin/Globulin Ratio 0.7L Height (Feet): 5 Height (Inches): 5.00 Weight (Pounds): 148 General Appearance: no apparent distress Respiratory/Chest: lungs clear, normal breath sounds Abdomen: non tender, soft Edema: trace edema Cesar Salvador May 24, 2017 10:18
[2017-05-24] MEDS: Carvedilol 6.25mg Tab ORAL SCH (10:58)
[2017-05-24 12:00] VITALS: BP 122/65
--- NOTE | 2017-05-24 12:38 | Infectious Diseases Prog Note ---
Assessment/Plan Assessment/Plan antibiotics : bactrim A 1. MRSA UTI s/p rx 2. DM 3. HTN 4. dementia P 1. d/c po bactrim 2. observe off antibiotics Subjective ROS Limited/Unobtainable: Yes Allergies: Coded Allergies: No Known Allergies (Unverified , 05/17/17) Objective Vital Signs Last 24 Hour Vital Signs Date Time Temp Pulse Resp B/P (MAP) Pulse Ox O2 Delivery O2 Flow Rate FiO2 05/24/17 10:58 70 112/51 05/24/17 09:47 70 05/24/17 08:52 70 18 Room Air 21 05/24/17 07:57 97.0 63 18 112/51 97 Room Air 97.0 05/24/17 04:00 97.9 18 124/66 96 Room Air 97.9 05/24/17 00:00 97.5 20 129/59 99 Room Air 97.5 05/24/17 00:00 Room Air 05/23/17 21:23 74 120/58 05/23/17 20:52 74 18 Room Air 21 05/23/17 20:00 Room Air 05/23/17 20:00 97.1 78 18 120/58 97 Room Air 97.1 05/23/17 16:00 97.4 61 18 131/91 94 Room Air 97.4 05/23/17 13:30 97.6 78 22 101/58 98 Room Air 97.6 Height (Feet): 5 Height (Inches): 5.00 Weight (Pounds): 148 Respiratory/Chest: lungs clear Cardiovascular: normal rate, regular rhythm, no gallop/murmur Abdomen: soft, non tender Extremities: no edema Laboratory Tests Test 05/24/17 05:15 White Blood Count 4.4 K/UL (4.8-10.8) L Red Blood Count 4.60 M/UL (4.20-5.40) Hemoglobin 13.9 G/DL (12.0-16.0) Hematocrit 41.4 % (37.0-47.0) Mean Corpuscular Volume 90 FL (80-99) Mean Corpuscular Hemoglobin 30.1 PG (27.0-31.0) Mean Corpuscular Hemoglobin Concent 33.5 G/DL (32.0-36.0) Red Cell Distribution Width 14.4 % (11.6-14.8) Platelet Count 143 K/UL (150-450) L Mean Platelet Volume 11.3 FL (6.5-10.1) H Neutrophils (%) (Auto) 56.4 % (45.0-75.0) Lymphocytes (%) (Auto) 28.0 % (20.0-45.0) Monocytes (%) (Auto) 11.0 % (1.0-10.0) H Eosinophils (%) (Auto) 3.9 % (0.0-3.0) H Basophils (%) (Auto) 0.7 % (0.0-2.0) Sodium Level 140 MMOL/L (136-145) Potassium Level 3.9 MMOL/L (3.5-5.1) Chloride Level 105 MMOL/L (98-107) Carbon Dioxide Level 30 MMOL/L (21-32) Anion Gap 5 mmol/L (5-15) Blood Urea Nitrogen 18 mg/dL (7-18) Creatinine 0.8 MG/DL (0.55-1.30) Estimat Glomerular Filtration Rate mL/min (>60) Glucose Level 141 MG/DL (74-106) H Calcium Level 9.6 MG/DL (8.5-10.1) Phosphorus Level 4.0 MG/DL (2.5-4.9) Magnesium Level 1.9 MG/DL (1.8-2.4) Total Bilirubin 0.9 MG/DL (0.2-1.0) Aspartate Amino Transf (AST/SGOT) 43 U/L (15-37) H Alanine Aminotransferase (ALT/SGPT) 34 U/L (12-78) Alkaline Phosphatase 82 U/L (46-116) Total Protein 7.1 G/DL (6.4-8.2) Albumin 2.9 G/DL (3.4-5.0) L Globulin 4.2 g/dL Albumin/Globulin Ratio 0.7 (1.0-2.7) L MUMTAZ GARCIA May 24, 2017 12:38
[2017-05-24] MEDS ORDERED: NS 275ml ONE (15:43)
[2017-05-24] MEDS ORDERED: Tubing IV Secondary IV ONE (15:43)
--- NOTE | 2017-05-24 18:03 | Pulmonology Progress Note ---
Assessment/Plan Problems: (1) Fall (2) UTI (urinary tract infection) (3) Diabetes mellitus (4) Arrhythmia (5) CAD (coronary artery disease) (6) Dementia Assessment/Plan no new complains improving all labs and notes reviewed continue abx check cultures pt/ot in progess med/surg dc planning for today Subjective ROS Limited/Unobtainable: No Allergies: Coded Allergies: No Known Allergies (Unverified , 05/17/17) Objective Last 24 Hour Vital Signs Date Time Temp Pulse Resp B/P (MAP) Pulse Ox O2 Delivery O2 Flow Rate FiO2 05/24/17 12:00 97.5 68 19 122/65 96 Room Air 97.5 05/24/17 10:58 70 112/51 05/24/17 09:47 70 05/24/17 08:52 70 18 Room Air 21 05/24/17 07:57 97.0 63 18 112/51 97 Room Air 97.0 05/24/17 04:00 97.9 18 124/66 96 Room Air 97.9 05/24/17 00:00 97.5 20 129/59 99 Room Air 97.5 05/24/17 00:00 Room Air 05/23/17 21:23 74 120/58 05/23/17 20:52 74 18 Room Air 21 05/23/17 20:00 Room Air 05/23/17 20:00 97.1 78 18 120/58 97 Room Air 97.1 Intake and Output 05/23/17 05/24/17 19:00 07:00 Intake Total 480 ml Balance 480 ml Intake Oral 480 ml # Voids 3 Objective General Appearance: WD/WN Lines, tubes and drains: peripheral HEENT: normocephalic, atraumatic Neck: non-tender, normal alignment Respiratory/Chest: chest wall non-tender, lungs clear Breasts: no masses Cardiovascular/Chest: normal peripheral pulses, normal rate Abdomen: normal bowel sounds, non tender Genitourinary/Rectal: normal genital exam, heme negative stool Extremities: normal range of motion, non-tender Skin Exam: normal pigmentation Laboratory Tests 05/24/17 05:15: White Blood Count 4.4L, Red Blood Count 4.60, Hemoglobin 13.9, Hematocrit 41.4, Mean Corpuscular Volume 90, Mean Corpuscular Hemoglobin 30.1, Mean Corpuscular Hemoglobin Concent 33.5, Red Cell Distribution Width 14.4, Platelet Count 143L, Mean Platelet Volume 11.3H, Neutrophils (%) (Auto) 56.4, Lymphocytes (%) (Auto) 28.0, Monocytes (%) (Auto) 11.0H, Eosinophils (%) (Auto) 3.9H, Basophils (%) ( Auto) 0.7, Sodium Level 140, Potassium Level 3.9, Chloride Level 105, Carbon Dioxide Level 30, Anion Gap 5, Blood Urea Nitrogen 18, Creatinine 0.8, Estimat Glomerular Filtration Rate , Glucose Level 141H, Calcium Level 9.6, Phosphorus Level 4.0, Magnesium Level 1.9, Total Bilirubin 0.9, Aspartate Amino Transf (AST /SGOT) 43H, Alanine Aminotransferase (ALT/SGPT) 34, Alkaline Phosphatase 82, Total Protein 7.1, Albumin 2.9L, Globulin 4.2, Albumin/Globulin Ratio 0.7L MARTIN MAKI May 24, 2017 18:03
--- NOTE | 2017-05-24 18:09 | Cardiology Progress Note ---
Assessment/Plan Assessment/Plan 1. Possible syncopal event leading to unwitnessed fall, carotid US was normal, not feasible to obtain orthostatics. 2. Diabetes mellitus, continue aspirin and atorvastatin. 3. History of hypertension, well controlled, continue carvedilol. 4. History of congestive heart failure, not appear to be in heart failure clinically. Subjective Subjective No cardiac events is reported. Objective Last 24 Hour Vital Signs Date Time Temp Pulse Resp B/P (MAP) Pulse Ox O2 Delivery O2 Flow Rate FiO2 05/24/17 12:00 97.5 68 19 122/65 96 Room Air 97.5 05/24/17 10:58 70 112/51 05/24/17 09:47 70 05/24/17 08:52 70 18 Room Air 21 05/24/17 07:57 97.0 63 18 112/51 97 Room Air 97.0 05/24/17 04:00 97.9 18 124/66 96 Room Air 97.9 05/24/17 00:00 97.5 20 129/59 99 Room Air 97.5 05/24/17 00:00 Room Air 05/23/17 21:23 74 120/58 05/23/17 20:52 74 18 Room Air 21 05/23/17 20:00 Room Air 05/23/17 20:00 97.1 78 18 120/58 97 Room Air 97.1 Intake and Output 05/23/17 05/24/17 19:00 07:00 Intake Total 480 ml Balance 480 ml Intake Oral 480 ml # Voids 3 Laboratory Tests Test 05/24/17 05:15 White Blood Count 4.4 K/UL (4.8-10.8) L Red Blood Count 4.60 M/UL (4.20-5.40) Hemoglobin 13.9 G/DL (12.0-16.0) Hematocrit 41.4 % (37.0-47.0) Mean Corpuscular Volume 90 FL (80-99) Mean Corpuscular Hemoglobin 30.1 PG (27.0-31.0) Mean Corpuscular Hemoglobin Concent 33.5 G/DL (32.0-36.0) Red Cell Distribution Width 14.4 % (11.6-14.8) Platelet Count 143 K/UL (150-450) L Mean Platelet Volume 11.3 FL (6.5-10.1) H Neutrophils (%) (Auto) 56.4 % (45.0-75.0) Lymphocytes (%) (Auto) 28.0 % (20.0-45.0) Monocytes (%) (Auto) 11.0 % (1.0-10.0) H Eosinophils (%) (Auto) 3.9 % (0.0-3.0) H Basophils (%) (Auto) 0.7 % (0.0-2.0) Sodium Level 140 MMOL/L (136-145) Potassium Level 3.9 MMOL/L (3.5-5.1) Chloride Level 105 MMOL/L (98-107) Carbon Dioxide Level 30 MMOL/L (21-32) Anion Gap 5 mmol/L (5-15) Blood Urea Nitrogen 18 mg/dL (7-18) Creatinine 0.8 MG/DL (0.55-1.30) Estimat Glomerular Filtration Rate mL/min (>60) Glucose Level 141 MG/DL (74-106) H Calcium Level 9.6 MG/DL (8.5-10.1) Phosphorus Level 4.0 MG/DL (2.5-4.9) Magnesium Level 1.9 MG/DL (1.8-2.4) Total Bilirubin 0.9 MG/DL (0.2-1.0) Aspartate Amino Transf (AST/SGOT) 43 U/L (15-37) H Alanine Aminotransferase (ALT/SGPT) 34 U/L (12-78) Alkaline Phosphatase 82 U/L (46-116) Total Protein 7.1 G/DL (6.4-8.2) Albumin 2.9 G/DL (3.4-5.0) L Globulin 4.2 g/dL Albumin/Globulin Ratio 0.7 (1.0-2.7) L Objective HEENT: Atraumatic and normocephalic. Anicteric. Pupils are equal, round, and reactive to light and accommodation. Extraocular muscles intact. NECK: JVP less than 5 cm. No carotid bruit. Carotid upstrokes 2+ bilaterally. CARDIOVASCULAR: Normal S1 and S2. There is 2/6 grade midsystolic murmur at the left sternal border. PMI is at fourth intercostal space at the midclavicular line. LUNGS: Clear to auscultation bilaterally. ABDOMEN: Soft, nontender, and nondistended. No hepatosplenomegaly. Positive bowel sounds. EXTREMITIES: No evidence of edema, clubbing, or cyanosis. JH FOSNECA May 24, 2017 18:09
--- NOTE | 2017-05-24 22:53 | General Progress Note ---
Assessment/Plan Status: stable Assessment/Plan dementia with behavioral disturbance encephalopathy -cont risperdal -increase the dose -haldol IM Subjective Date patient seen: May 24, 2017 Neurologic/Psychiatric: Reports: anxiety, depressed, emotional problems Allergies: Coded Allergies: No Known Allergies (Unverified , 05/17/17) Subjective the pt is calmer more manageable Objective Last 24 Hour Vital Signs Date Time Temp Pulse Resp B/P (MAP) Pulse Ox O2 Delivery O2 Flow Rate FiO2 05/24/17 12:00 97.5 68 19 122/65 96 Room Air 97.5 05/24/17 10:58 70 112/51 05/24/17 09:47 70 05/24/17 08:52 70 18 Room Air 21 05/24/17 07:57 97.0 63 18 112/51 97 Room Air 97.0 05/24/17 04:00 97.9 18 124/66 96 Room Air 97.9 05/24/17 00:00 97.5 20 129/59 99 Room Air 97.5 05/24/17 00:00 Room Air Intake and Output 05/23/17 05/24/17 19:00 07:00 Intake Total 480 ml Balance 480 ml Intake Oral 480 ml # Voids 3 Laboratory Tests 05/24/17 05:15: White Blood Count 4.4L, Red Blood Count 4.60, Hemoglobin 13.9, Hematocrit 41.4, Mean Corpuscular Volume 90, Mean Corpuscular Hemoglobin 30.1, Mean Corpuscular Hemoglobin Concent 33.5, Red Cell Distribution Width 14.4, Platelet Count 143L, Mean Platelet Volume 11.3H, Neutrophils (%) (Auto) 56.4, Lymphocytes (%) (Auto) 28.0, Monocytes (%) (Auto) 11.0H, Eosinophils (%) (Auto) 3.9H, Basophils (%) ( Auto) 0.7, Sodium Level 140, Potassium Level 3.9, Chloride Level 105, Carbon Dioxide Level 30, Anion Gap 5, Blood Urea Nitrogen 18, Creatinine 0.8, Estimat Glomerular Filtration Rate , Glucose Level 141H, Calcium Level 9.6, Phosphorus Level 4.0, Magnesium Level 1.9, Total Bilirubin 0.9, Aspartate Amino Transf (AST /SGOT) 43H, Alanine Aminotransferase (ALT/SGPT) 34, Alkaline Phosphatase 82, Total Protein 7.1, Albumin 2.9L, Globulin 4.2, Albumin/Globulin Ratio 0.7L Height (Feet): 5 Height (Inches): 5.00 Weight (Pounds): 148 General Appearance: no apparent distress, alert, agitated Shana Correa M.D. May 24, 2017 22:53
--- NOTE | 2017-05-24 22:54 | General Progress Note ---
Assessment/Plan Status: stable Assessment/Plan dementia with behavioral disturbance encephalopathy -cont risperdal -increase the dose -haldol IM Subjective Date patient seen: May 23, 2017 Neurologic/Psychiatric: Reports: anxiety, depressed, emotional problems Allergies: Coded Allergies: No Known Allergies (Unverified , 05/17/17) Subjective the pt agitated Objective Last 24 Hour Vital Signs Date Time Temp Pulse Resp B/P (MAP) Pulse Ox O2 Delivery O2 Flow Rate FiO2 05/24/17 12:00 97.5 68 19 122/65 96 Room Air 97.5 05/24/17 10:58 70 112/51 05/24/17 09:47 70 05/24/17 08:52 70 18 Room Air 21 05/24/17 07:57 97.0 63 18 112/51 97 Room Air 97.0 05/24/17 04:00 97.9 18 124/66 96 Room Air 97.9 05/24/17 00:00 97.5 20 129/59 99 Room Air 97.5 05/24/17 00:00 Room Air Intake and Output 05/23/17 05/24/17 19:00 07:00 Intake Total 480 ml Balance 480 ml Intake Oral 480 ml # Voids 3 Laboratory Tests 05/24/17 05:15: White Blood Count 4.4L, Red Blood Count 4.60, Hemoglobin 13.9, Hematocrit 41.4, Mean Corpuscular Volume 90, Mean Corpuscular Hemoglobin 30.1, Mean Corpuscular Hemoglobin Concent 33.5, Red Cell Distribution Width 14.4, Platelet Count 143L, Mean Platelet Volume 11.3H, Neutrophils (%) (Auto) 56.4, Lymphocytes (%) (Auto) 28.0, Monocytes (%) (Auto) 11.0H, Eosinophils (%) (Auto) 3.9H, Basophils (%) ( Auto) 0.7, Sodium Level 140, Potassium Level 3.9, Chloride Level 105, Carbon Dioxide Level 30, Anion Gap 5, Blood Urea Nitrogen 18, Creatinine 0.8, Estimat Glomerular Filtration Rate , Glucose Level 141H, Calcium Level 9.6, Phosphorus Level 4.0, Magnesium Level 1.9, Total Bilirubin 0.9, Aspartate Amino Transf (AST /SGOT) 43H, Alanine Aminotransferase (ALT/SGPT) 34, Alkaline Phosphatase 82, Total Protein 7.1, Albumin 2.9L, Globulin 4.2, Albumin/Globulin Ratio 0.7L Height (Feet): 5 Height (Inches): 5.00 Weight (Pounds): 148 General Appearance: WD/WN, no apparent distress, alert, confused, agitated Shana Correa M.D. May 24, 2017 22:54
--- NOTE | 2017-05-25 11:21 | General Progress Note ---
Assessment/Plan Assessment/Plan 1. Urinary tract infection, antibiotics as per ID Service. --> Urine culture reviewed. 2. Fall, unwitnessed. --> CAT scan reviewed of the brain, currently negative. --> Symptomatic treatment as needed. 3. Arrhythmia, seen by Cardiology Service. --> Close monitoring. The patient is on telemetry. --> Echo reviewed. Cardiac evaluation. 4. Loss of consciousness, altered mental status. --> Neurology Service on board. 5. Coronary artery disease. --> Monitor as needed by Cardiology. 6. Dementia. Closely monitor. 7. Leukopenia. --> Monitor. DC Planning Subjective Date patient seen: May 24, 2017 Constitutional: Denies: no symptoms, chills, diaphoresis, fever, malaise, weakness, other HEENT: Denies: no symptoms, eye pain, blurred vision, tearing, double vision, ear pain, ear discharge, nose pain, nose congestion, throat pain, throat swelling, mouth pain, mouth swelling, other Cardiovascular: Denies: no symptoms, chest pain, edema, irregular heart rate, lightheadedness, palpitations, syncope, other Respiratory: Denies: no symptoms, cough, orthopnea, shortness of breath, SOB with excertion, SOB at rest, sputum, stridor, wheezing, other Gastrointestinal/Abdominal: Denies: no symptoms, abdomen distended, abdominal pain, black stools, tarry stools, blood in stool, constipated, diarrhea, difficulty swallowing, nausea, poor appetite, poor fluid intake, rectal bleeding , vomiting, other Genitourinary: Denies: no symptoms, burning, discharge, frequency, flank pain, hematuria, incontinence, pain, urgency, other Neurologic/Psychiatric: Denies: no symptoms, anxiety, depressed, emotional problems, headache, numbness, paresthesia, pre-existing deficit, seizure, tingling, tremors, weakness, other Allergies: Coded Allergies: No Known Allergies (Unverified , 05/17/17) Subjective H/H stable. No acute events overnight. Pending DC Objective Last 24 Hour Vital Signs Date Time Temp Pulse Resp B/P (MAP) Pulse Ox O2 Delivery O2 Flow Rate FiO2 05/24/17 12:00 97.5 68 19 122/65 96 Room Air 97.5 Intake and Output 05/24/17 05/25/17 18:59 06:59 # Voids 1 Height (Feet): 5 Height (Inches): 5.00 Weight (Pounds): 148 General Appearance: no apparent distress Respiratory/Chest: lungs clear, normal breath sounds Abdomen: non tender, soft Cesar Salvador May 25, 2017 11:21
--- NOTE | 2017-05-27 11:01 | Discharge Summary ---
Discharge Summary Hospital Course Date of Admission May 17, 2017 at 20:51 Date of Discharge May 24, 2017 at 15:44 Admitting Diagnosis FALL,ALTERED MENTAL STATUS HPI Erickson Brice is a 81 year old female who was admitted on May 17, 2017 at 20: 51 for Fall,Altered Mental Status Hospital Course dc summary #[id number] Discharge Medications Continued Medications: Acetaminophen* (Acetaminophen 325MG Tablet*) 325 Mg Tablet 650 MG ORAL Q4H PRN for FEVER Aripiprazole* (Abilify*) 5 Mg Tablet 5 MG ORAL BEDTIME Atorvastatin Calcium* (Lipitor*) 20 Mg Tablet 20 MG ORAL DAILY Bisacodyl (Dulcolax) 10 Mg Supp.rect 10 MG RC DAILY PRN for IF MOM INEFFECTIVE Digoxin* (Digoxin*) 125 Mcg Tablet 125 MCG ORAL DAILY for HOLD IF HR <60 Insulin Aspart* (Novolog*) 100 Unit/1 Ml Insuln.pen 0 SUBQ Discharge Condition Upon Discharge: stable Discharge Disposition Patient was discharged to SNF/Subacute Facility(03) Discharge Diagnoses: Discharge Instructions Discharge Instructions Special Instructions I have been assigned to complete a D/C Summary on this account. I was not involved in the patient management Yue Mcrae NP (V[place]tein) May 27, 2017 11:01
--- NOTE | 2017-05-27 16:15 | Discharge Summary 2 SIG ---
DATE OF ADMISSION: 05/17/2017 DATE OF DISCHARGE: 05/24/2017 REASON FOR ADMISSION: 81-year-old female with past medical history of dementia, hypertension, CHF, atrial fibrillation, depression, bipolar, diabetes, who was [facility] from the [facility] for evaluation for unwitnessed fall. The patient was found on the floor by the nursing staff. The patient by herself had altered mental status and was unable to follow all commands or answer the questions. She denied any pain. Vital signs were stable. 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 No associated mass effect or edema noted. Generalized atrophy of the brain and evidence of chronic small vessel disease. Chest x-ray revealed no acute cardiopulmonary pathology. Troponin - 0.012. ProBNP- 590. EKG showed normal sinus rhythm with left bundle-branch block. Stable electrolytes. No leukocytosis. Stable hemoglobin and hematocrit. Urinalysis with evidence of urinary tract infection. The patient admitted with diagnoses of unwitnessed fall, possible syncopal episode, UTI, dementia, diabetes, and coronary artery disease. HOSPITAL COURSE: The patient admitted to telemetry floor. Cardiology and Pulmonology consults were requested. EKG revealed sinus rhythm. Orthostatic vital signs were ordered and was not feasible to do due to the patient's behavior. Echocardiogram was ordered and also was not feasible to do due to the patient's behavior. Carotid duplex revealed minimal stenosis bilaterally. According to post partum nurse, the patient had history of CHF, but did not appear clinically in congestive heart failure. Blood pressure was stable with beta-polo. Blood sugar was closely monitored. Field Auditor recommended in addition to blood sugar management, continue aspirin and statin. Psychiatrist had seen and evaluated the patient, increased the dose of Risperdal, and optimized psychiatric medication management. Urine culture revealed MRSA. The patient was on antibiotic while in the hospital, status post treatment. Physical therapy rehabilitation consultation was obtained due to the patient's declining functional status. The patient started on physical and occupational therapy. Swallow evaluation revealed dysphagia. Strict aspiration precautions were maintained. Diet downgraded as per dietary recommendations. Nutritional recommendations were implemented. Fall precaution maintained. Speech therapy recommended along with PT and OT at the [facility] for retraining on status of her cognition, memory, speech, and language. Skin precautions were maintained. Bowel regimen instituted. DVT prophylaxis provided. The patient was stable for discharge to [facility] facility. Syncope if real, could have been due to the urinary tract infection. Encephalopathy was multifactorial according to physical therapy vocational rehabilitation supervisor, with one of the reasons being urinary tract infection. The patient was stable for discharge to [facility] facility. FINAL DIAGNOSES: 1. Status post unwitnessed fall. 2. Urinary tract infection with MRSA, status post treatment. 3. Multifactorial encephalopathy. 4. Possible syncopal episode ( probably due to UTI) 5. Dementia with behavioral disturbances. 6. Hypertension. 7. Diabetes. 8. 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 9. Dysphagia. 10. Debility and functional decline. 11. Gait abnormality. 12. Bipolar and anxiety disorder. 13. Depression. 14. History of CHF. DISCHARGE MEDICATIONS: See medication reconciliation list. DISCHARGE INSTRUCTIONS: The patient discharged to [facility] facility. FOLLOWUP: Follow up with medical doctor at the facility. Luiza Roberts M.D. I have been assigned to dictate discharge summary on this account and I was not involved in the patient's management. Yue Burtkenneth N.P. DR: SONIA JOB#: [id number] CC: ERICKSON
== END 2017-05-24 15:44 | DRG 689 ==
LOC: EDBD 17:49 → EMR 18:30 → 2E 20:51 → EDBEDREQ 22:20 → 4W 05-19 16:04
DX: N39.0 Urinary tract infection, site not specified (principal); G93.49 Other encephalopathy; I62.03 Nontraumatic chronic subdural hemorrhage; F03.91 Unspecified dementia, unspecified severity, with behavioral disturbance; I48.0 Paroxysmal atrial fibrillation; R13.10 Dysphagia, unspecified; I11.0 Hypertensive heart disease with heart failure; I50.9 Heart failure, unspecified; R55 Syncope and collapse; R47.01 Aphasia; A49.02 Methicillin resistant Staphylococcus aureus infection, unspecified site; E11.9 Type 2 diabetes mellitus without complications; F31.9 Bipolar disorder, unspecified; J32.9 Chronic sinusitis, unspecified; R26.9 Unspecified abnormalities of gait and mobility; F29 Unspecified psychosis not due to a substance or known physiological condition; I25.10 Atherosclerotic heart disease of native coronary artery without angina pectoris; I44.7 Left bundle-branch block, unspecified; D18.1 Lymphangioma, any site; Z91.81 History of falling; F41.9 Anxiety disorder, unspecified; R53.81 Other malaise; J32.0 Chronic maxillary sinusitis
CPT/HCPCS: 36415; 70450; 71045; 80053; 80202; 81003; 82962; 83735; 83880; 84100; 84484; 85025; 87081; 87086; 87181; 92610; 93005; 93880; 94664; 99285; J2250; J8499